=== PATIENT | female | born 1935 | race Caucasian/White ===

== ENCOUNTER 2019-08-11 07:52 | Emergency (ER) | payer OTHER ==
[2019-08-11] MEDS ORDERED: LIDOCAINE 1% W/EPI 1:100,000 MDV 20 ML VIAL ONE (08:53)
[2019-08-11 08:57] LABS: Absolute Lymphocytes (CBC) 1.5 K/uL (0.7-4.9); Basophils % 1.1 % (0-1.3); Hematocrit 33.9 % (36.0-45.0); Lymphocytes % 17.7 % (15.3-44.8); MPV 10.2 fL (7.6-11.3); RBC Red Blood Cell Count 3.38 M/uL (3.86-4.86)
[2019-08-11 08:58] LABS: Protime INR 1.01
[2019-08-11] MEDS ORDERED: TETANUS & DIPHTHERIA TOX,ADULT 0.5 ML VIAL ONE (09:12)
[2019-08-11] MEDS ORDERED: CEFAZOLIN/SWI 1gm 1 GM/10 ML SYR ONE (09:12)
[2019-08-11 09:15] LABS: ALT/SGPT 10 U/L (12-78); AST/SGOT 18 U/L (15-37); Albumin 3.4 g/dL (3.4-5.0); Alkaline Phosphatase 57 U/L (45-117); BUN Blood Urea Nitrogen 13 mg/dL (7-18); Bicarbonate 30 mmol/L (21-32); Bilirubin Direct 0.2 mg/dL (0-0.2); Bilirubin Total 0.6 mg/dL (0.2-1.0); Glucose Level 93 mg/dL (74-106); Magnesium 2.1 mg/dL (1.8-2.4); Potassium 3.8 mmol/L (3.5-5.1); Protein, Total 7.1 g/dL (6.4-8.2); Sodium Level 141 mmol/L (136-145); Troponin (Emerg Dept Use Only) < 0.02 ng/mL (0.0-0.045)
--- NOTE | 2019-08-11 09:46 | RAD REPORT ---
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
--- NOTE | 2019-08-11 10:08 | RAD REPORT ---
EXAM DESCRIPTION: Benita Single View08/11/2019 8:45 am CLINICAL HISTORY: cough COMPARISON: 2017 FINDINGS: The lungs appear clear of acute infiltrate. The heart is normal size IMPRESSION: No acute abnormalities displayed
--- NOTE | 2019-08-11 10:21 | RAD REPORT ---
EXAM DESCRIPTION: CT - Head Brain Wo Cont - 08/11/2019 10:14 am CLINICAL HISTORY: Dizziness COMPARISON: None TECHNIQUE: Computed axial tomography of the head was obtained. IV contrast was not requested. All CT scans are performed using dose optimization technique as appropriate and may include automated exposure control or mA/KV adjustment according to patient size. FINDINGS: An intracranial bleed is not seen . The ventricles are normal in caliber. No extra-axial fluid collection is noted. Mild to moderate low-density areas within periventricular, deep and subcortical white matter likely r epresent ischemic changes secondary to small vessel disease. Fluid within the sinuses/ mastoids is not seen. IMPRESSION: No acute intracranial abnormality is seen. If patient's symptoms persist MRI of the bra in would be recommended.
--- NOTE | 2019-08-11 10:44 | EDPHYS ---
Physician Documentation [facility] Name: Jaida Chance Age: 84 yrs Sex: Female : 1935 Arrival Date: 08/11/2019 Time: 07:52 Bed 7 Private MD: ED Physician Tejas Kinsey HPI: 08/11 08:14 This 84 yrs old Female presents to ER via EMS with complaints of Fall Injury. shena 08:14 Details of fall: The patient fell from an upright position, while standing. Associated shena injuries: The patient sustained left bicep and left tricep, decreased range of motion, swelling. Severity of symptoms: At their worst the symptoms were mild, in the emergency department the symptoms are unchanged. The patient has not experienced similar symptoms in the past. Historical: - Allergies: 08:02 Codeine (Upset stomach); em - Home Meds: 08:02 lorazepam 0.5 mg Oral tab [Active]; escitalopram oxalate 20 mg oral tab [Active]; em raloxifene 60 mg oral tab 1 tab once daily [Active]; ibandronate 150 mg oral tab [Active]; propranolol 20 mg Oral tab [Active]; - PSHx: 08:02 Appendectomy; ; em - Immunization history:: Adult Immunizations up to date. - Coronavirus screen:: The patient has NOT traveled to [place] in the past 14 days. The patient has NOT had contact with known/suspected case of Coronavirus?. - Social history:: Smoking status: Patient denies any tobacco usage or history of. - Family history:: not pertinent. - Ebola Screening: : Patient negative for fever greater than or equal to 101.5 degrees Fahrenheit, and additional compatible Ebola Virus Disease symptoms Patient denies exposure to infectious person Patient denies travel to an Ebola-affected area in the 21 days before illness onset No symptoms or risks identified at this time. ROS: 08:14 Constitutional: Negative for fever, chills, and weight loss, Eyes: Negative for injury, shena pain, redness, and discharge, ENT: Negative for injury, pain, and discharge, Neck: Negative for injury, pain, and swelling, Cardiovascular: Negative for chest pain, palpitations, and edema, Respiratory: Negative for shortness of breath, cough, wheezing, and pleuritic chest pain, Abdomen/GI: Negative for abdominal pain, nausea, vomiting, diarrhea, and constipation, Back: Negative for injury and pain, : Negative for injury, bleeding, discharge, and swelling, Psych: Negative for depression, anxiety, suicide ideation, homicidal ideation, and hallucinations, Allergy/Immunology: Negative for hives, rash, and allergies, Endocrine: Negative for neck swelling, polydipsia, polyuria, polyphagia, and marked weight changes, Hematologic/Lymphatic: Negative for swollen nodes, abnormal bleeding, and unusual bruising. 08:14 MS/extremity: Positive for injury or acute deformity, laceration, pain, of the left bicep. Exam: 08:14 Constitutional: This is a well developed, well nourished patient who is awake, alert, shena and in no acute distress. Head/Face: Normocephalic, atraumatic. Eyes: Pupils equal round and reactive to light, extra-ocular motions intact. Lids and lashes normal. Conjunctiva and sclera are non-icteric and not injected. Cornea within normal limits. Periorbital areas with no swelling, redness, or edema. ENT: Nares patent. No nasal discharge, no septal abnormalities noted. Tympanic membranes are normal and external auditory canals are clear. Oropharynx with no redness, swelling, or masses, exudates, or evidence of obstruction, uvula midline. Mucous membranes moist. Neck: Trachea midline, no thyromegaly or masses palpated, and no cervical lymphadenopathy. Supple, full range of motion without nuchal rigidity, or vertebral point tenderness. No Meningismus. Chest/axilla: Normal chest wall appearance and motion. Nontender with no deformity. No lesions are appreciated. Cardiovascular: Regular rate and rhythm with a normal S1 and S2. No gallops, murmurs, or rubs. Normal PMI, no JVD. No pulse deficits. Respiratory: Lungs have equal breath sounds bilaterally, clear to auscultation and percussion. No rales, rhonchi or wheezes noted. No increased work of breathing, no retractions or nasal flaring. Abdomen/GI: Soft, non-tender, with normal bowel sounds. No distension or tympany. No guarding or rebound. No evidence of tenderness throughout. Back: No spinal tenderness. No costovertebral tenderness. Full range of motion. Neuro: Awake and alert, GCS 15, oriented to person, place, time, and situation. Cranial nerves II-XII grossly intact. Motor strength 5/5 in all extremities. Sensory grossly intact. Cerebellar exam normal. Normal gait. Psych: Awake, alert, with orientation to person, place and time. Behavior, mood, and affect are within normal limits. 08:14 Skin: Appearance: Color: pale. 08:14 Neuro: Orientation: is normal, appropriate for stated age, no acute changes, Mentation: is normal, appropriate for stated age, no acute changes, Memory: is normal, appropriate for stated age, no acute changes, Cranial nerves: grossly normal, is grossly normal based on the patient's age, no acute changes, Cerebellar function: is grossly normal, is grossly normal based on the patient's age, no acute changes, Motor: is normal, is grossly normal based on the patient's age, Sensation: is normal, no obvious gross deficits, appropriate no acute changes, Gait: not tested. Babinski testing is normal, seizure activity, is not displayed by the patient. 08:51 Musculoskeletal/extremity: DVT Exam: No signs of deep vein thrombosis. no pain, no shena swelling, no tenderness, negative Homans' sign noted on exam, no appreciated bluish discoloration, no erythema, no increased warmth. 08:52 Abdomen/GI: Rectal exam: is unremarkable, rectal tone normal, Stool: guaiac negative, shena hemorrhoid(s), are not appreciated, mass, is not appreciated, swelling, is not appreciated, tenderness, is not appreciated. Vital Signs: 08:02 BP 130 / 80; Pulse 56; Resp 16; Temp 98.1; Pulse Ox 100% on R/A; Weight 48.08 kg; Pain em 6/10; 09:00 BP 151 / 75; Pulse 70; Resp 16 S; Pulse Ox 100% on R/A; jl7 10:33 BP 173 / 75 Supine; Pulse 67; jb1 10:33 BP 179 / 70 Sitting; Pulse 63; jb1 10:33 BP 169 / 76 Standing; Pulse 65; jb1 11:00 BP 136 / 54; Pulse 66; Resp 16 S; Pulse Ox 100% on R/A; jl7 MDM: 07:52 Patient medically screened. [facility] 08:17 Data reviewed: vital signs, nurses notes, EMS record, lab test result(s), EKG, [facility] radiologic studies, plain films. 08/11 08:14 Order name: Basic Metabolic Panel 08/11 08:14 Order name: CBC with Diff 08/11 08:14 Order name: LFT's 08/11 08:14 Order name: Magnesium [facility] 08/11 08:14 Order name: PT-INR 08/11 08:14 Order name: Troponin (emerg Dept Use Only) 08/11 08:14 Order name: XRAY Chest (1 view) 08/11 08:14 Order name: Humerus Left XRAY [facility] 08/11 09:00 Order name: CBC with Automated Diff; Complete Time: 09:07 EDMS 08/11 09:18 Order name: Basic Metabolic Panel; Complete Time: 09:26 EDMS 08/11 09:18 Order name: Liver (Hepatic) Function; Complete Time: 09:26 EDMS 08/11 09:18 Order name: Troponin (Emerg Dept Use Only); Complete Time: 09:26 EDMS 08/11 09:18 Order name: Magnesium; Complete Time: 09:26 EDGA 08/11 10:08 Order name: Protime (+INR); Complete Time: 10:39 EDGA 08/11 08:14 Order name: EKG; Complete Time: 08:15 [facility] 08/11 08:14 Order name: Cardiac monitoring; Complete Time: 08:51 [facility] 08/11 08:14 Order name: EKG - Nurse/Tech; Complete Time: 09:04 08/11 08:14 Order name: IV Saline Lock; Complete Time: 08:59 [facility] 08/11 08:14 Order name: Labs collected and sent; Complete Time: 08:59 08/11 08:14 Order name: O2 Per Protocol; Complete Time: 08:51 08/11 08:14 Order name: O2 Sat Monitoring; Complete Time: 08:51 [facility] 08/11 09:49 Order name: RAD; Complete Time: 10:39 EDMS 08/11 09:55 Order name: CT Head Brain wo Cont 08/11 10:28 Order name: RAD; Complete Time: 10:39 EDMS 08/11 10:43 Order name: CT EDGA 08/11 08:14 Order name: Wound Care; Complete Time: 10:07 08/11 08:18 Order name: Prolene, Sutures; Complete Time: 08:58 [facility] 08/11 08:18 Order name: Dressing - Wound; Complete Time: 10:07 [facility] 08/11 08:18 Order name: Gloves, Sterile; Complete Time: 08:58 [facility] 08/11 08:18 Order name: Setup Suture Tray; Complete Time: 08:59 [facility] 08/11 09:55 Order name: Orthostatics; Complete Time: 10:34 [facility] Administered Medications: 09:13 Drug: Tetanus-Diphtheria Toxoid Adult 0.5 ml {Orchestrator: [employer]. Exp: em 05/25/2021. Lot #: [id number]. } Route: IM; Site: right deltoid; 09:49 Follow up: Response: No adverse reaction jl7 09:17 Drug: Ancef 1 grams Route: IVPB; Site: right forearm; 09:22 Follow up: Response: No adverse reaction; IV Status: Completed infusion [facility] 09:20 Drug: Lidocaine-Epinephrine -1%: (1:100,000) 10 ml {Note: adminstered by Dr. Kinsey.} 7 Volume: 20 ml; Route: Infiltration; 09:48 Follow up: Response: No adverse reaction [facility] 11:08 Not Given (Patient Refused): Zofran 4 mg IVP once; over 2 minutes jl7 Disposition: 08/11/19 10:43 Discharged to Home. Impression: Fall due to bumping against object, Dizziness and giddiness, Laceration without foreign body of left upper arm, Osteochondropathy, unspecified of upper arm. - Condition is Stable. - Discharge Instructions: Dizziness, Laceration Care, Adult, Near-Syncope, Laceration Care, Adult, [id number], Fall Prevention in the Home, [id number]. - Prescriptions for Keflex 500 mg Oral Capsule - take 1 capsule by ORAL route every 6 hours for 7 days; 28 capsule. - Medication Reconciliation Form, Thank You Letter, Antibiotic Education, Prescription Opioid Use form. - Follow up: Private Physician; When: 2 - 3 days; Reason: Recheck today's complaints, Continuance of care, Re-evaluation by your physician. Follow up: Boston Najera MD; When: 2 - 3 days; Reason: Recheck today's complaints, Re-evaluation by your physician. - Problem is new. - Symptoms have improved. Signatures: Dispatcher [employer] Tejas Garcia MD MD cha Munoz, Edgar, RN RN Shad Huerta RN RN jl7 Corrections: (The following items were deleted from the chart) 11:28 10:43 08/11/2019 10:43 Discharged to Home. Impression: Fall due to bumping against jl7 object; Dizziness and giddiness; Laceration without foreign body of left upper arm; Osteochondropathy, unspecified of upper arm. Condition is Stable. Discharge Instructions: Dizziness, Laceration Care, Adult, Near-Syncope, Laceration Care, Adult, [id number], Fall Prevention in the Home, [id number]. Prescriptions for Keflex 500 mg Oral Capsule - take 1 capsule by ORAL route every 6 hours for 7 days; 28 capsule. and Forms are Medication Reconciliation Form, Thank You Letter, Antibiotic Education, Prescription Opioid Use. Follow up: Private Physician; When: 2 - 3 days; Reason: Recheck today's complaints, Continuance of care, Re-evaluation by your physician. Follow up: Dr. Boston Najera; When: 2 - 3 days; Reason: Recheck today's complaints, Re-evaluation by your physician. Problem is new. Symptoms have improved. shena
--- NOTE | 2019-08-11 10:44 | ER ---
Nurse's Notes [facility] Name: Jaida Chance Age: 84 yrs Sex: Female : 1935 Arrival Date: 08/11/2019 Time: 07:52 Bed 7 Private MD: Diagnosis: Fall due to bumping against object;Dizziness and giddiness;Laceration without foreign body of left upper arm;Osteochondropathy, unspecified of upper arm Presentation: 08/11 07:55 Presenting complaint: EMS states: was getting back into bed and became dizzy, reports em getting skin tear on left upper arm, bandaged with Kerlix CORN POPPER, denies hitting head, BGL 124, VSS. Transition of care: patient was not received from another setting of care. Onset of symptoms was August 11, 2019. Risk Assessment: Do you want to hurt yourself or someone else? Patient reports no desire to harm self or others. Initial Sepsis Screen: Does the patient meet any 2 criteria? No. Patient's initial sepsis screen is negative. Does the patient have a suspected source of infection? Yes: Skin breakdown/wound. Care prior to arrival: None. 07:55 Method Of Arrival: [facility] em 07:55 Acuity: EILEEN 3 em Historical: - Allergies: 08:02 Codeine (Upset stomach); em - Home Meds: 08:02 lorazepam 0.5 mg Oral tab [Active]; escitalopram oxalate 20 mg oral tab [Active]; em raloxifene 60 mg oral tab 1 tab once daily [Active]; ibandronate 150 mg oral tab [Active]; propranolol 20 mg Oral tab [Active]; - PSHx: 08:02 Appendectomy; ; em - Immunization history:: Adult Immunizations up to date. - Coronavirus screen:: The patient has NOT traveled to [place] in the past 14 days. The patient has NOT had contact with known/suspected case of Coronavirus?. - Social history:: Smoking status: Patient denies any tobacco usage or history of. - Family history:: not pertinent. - Ebola Screening: : Patient negative for fever greater than or equal to 101.5 degrees Fahrenheit, and additional compatible Ebola Virus Disease symptoms Patient denies exposure to infectious person Patient denies travel to an Ebola-affected area in the 21 days before illness onset No symptoms or risks identified at this time. Screenin:55 Abuse screen: Denies threats or abuse. Nutritional screening: No deficits noted. em Tuberculosis screening: No symptoms or risk factors identified. Fall Risk None identified. Assessment: 09:22 General: Appears in no apparent distress. comfortable, Behavior is calm, cooperative, em appropriate for age. Pain: Complains of pain in left bicep Pain does not radiate. Pain currently is 6 out of 10 on a pain scale. Quality of pain is described as burning. Neuro: Level of Consciousness is awake, alert, obeys commands, Oriented to person, place, time, situation, Appropriate for age Denies weakness dizziness. Cardiovascular: Capillary refill < 3 seconds Patient's skin is warm and dry. Respiratory: Airway is patent Respiratory effort is even, unlabored, Respiratory pattern is regular, symmetrical. Derm: Skin is intact, is thin, Skin is pink, warm \T\ dry. Wound noted left arm. Musculoskeletal: Capillary refill < 3 seconds, Range of motion: intact in all extremities. 10:30 Reassessment: Patient appears in no apparent distress at this time. No changes from jl7 previously documented assessment. Patient and/or family updated on plan of care and expected duration. Pain level reassessed. Patient is alert, oriented x 3, equal unlabored respirations, skin warm/dry/pink. Vital Signs: 08:02 BP 130 / 80; Pulse 56; Resp 16; Temp 98.1; Pulse Ox 100% on R/A; Weight 48.08 kg; Pain em 610; 09:00 BP 151 / 75; Pulse 70; Resp 16 S; Pulse Ox 100% on R/A; jl7 10:33 BP 173 / 75 Supine; Pulse 67; jb1 10:33 BP 179 / 70 Sitting; Pulse 63; jb1 10:33 BP 169 / 76 Standing; Pulse 65; jb1 11:00 BP 136 / 54; Pulse 66; Resp 16 S; Pulse Ox 100% on R/A; jl7 ED Course: 07:52 Patient arrived in ED. sg 07:52 Tejas Kinsey MD is Attending Physician. shena 07:55 Rodger Chin, RN is Primary Nurse. em 07:55 Patient has correct armband on for positive identification. Bed in low position. Call em light in reach. Adult w/ patient. Pulse ox on. NIBP on. 07:58 Triage completed. em 08:02 Arm band placed on. em 08:10 ED physician to see patient. sg 09:00 engagement quality consultant on. jl7 09:00 Initial lab(s) drawn, by me, sent to lab. Inserted saline lock: 22 gauge in right jl7 forearm, using aseptic technique. Blood collected. 09:02 EKG done, by ED staff, reviewed by Tejas Kinsey MD. em 10:13 CT completed. Patient tolerated procedure well. Patient moved back from CT. mw3 10:43 Boston Najera MD is Referral Physician. [facility] 11:10 Assist provider with laceration repair on left tricep and left bicep that was between jl7 7.6 to 12.5 cm using sutures. Set up tray. Performed by Tejas Kinsey MD Dressed with non-stick gauze, Neosporin and Tegaderm Patient tolerated well. IV discontinued, intact, bleeding controlled, No redness/swelling at site. Pressure dressing applied. Administered Medications: 09:13 Drug: Tetanus-Diphtheria Toxoid Adult 0.5 ml {Baseball Hand Sewer: [employer] Exp: em 05/25/2021. Lot #: [id number]. } Route: IM; Site: right deltoid; 09:49 Follow up: Response: No adverse reaction jl7 09:17 Drug: Ancef 1 grams Route: IVPB; Site: right forearm; em 09:22 Follow up: Response: No adverse reaction; IV Status: Completed infusion jl7 09:20 Drug: Lidocaine-Epinephrine -1%: (1:100,000) 10 ml {Note: adminstered by Dr. Kinsey.} 7 Volume: 20 ml; Route: Infiltration; 09:48 Follow up: Response: No adverse reaction jl7 11:08 Not Given (Patient Refused): Zofran 4 mg IVP once; over 2 minutes jl7 Outcome: 10:43 Discharge ordered by . [facility] 11:10 Discharged to home via wheelchair, with family. jl7 11:10 Condition: stable 11:10 Discharge instructions given to patient, family, Instructed on discharge instructions, follow up and referral plans. medication usage, Demonstrated understanding of instructions, follow-up care, medications, Prescriptions given X 1. 11:20 Patient left the ED. jl7 Signatures: Colby Winter1 Cornell, NeftaliLUCERO landrum RN, Corey, MD MD cha Munoz, Edgar RN Shad Wilkes RN RN jl7 Shonna Wang 3 Corrections: (The following items were deleted from the chart) 11:29 11:28 Patient left the ED. shravan cheney
[2019-08-11 11:37] VITALS: TEMP 98.1; O2SAT 100
[2019-08-11 11:41] VITALS: BP 136/54
--- NOTE | 2019-08-12 06:23 | EKG ---
Test Date: 2019-08-11 Test Time: 09:02:38 Admin Assistant: DUSTY MEASUREMENT RESULTS: Intervals: Rate: 61 PA: 140 QRSD: 74 QT: 456 QTc: 459 [place]: P: 66 PA: 140 QRS: 37 T: 58 INTERPRETIVE STATEMENTS: Normal sinus rhythm Normal ECG Compared to ECG 10/12/2016 18:52:44 No significant changes Electronically Signed On 08-12-19 06:23:25 ACTUARIAL SCIENCE PROFESSOR by Maynor Julian
== END 2019-08-11 11:28 | disposition home or self-care (01) ==
LOC: ER 07:52
PROC: 0JQF0ZZ Repair Left Upper Arm Subcutaneous Tissue and Fascia, Open Approach (ICD-10-PCS; principal; 2019-08-11)
DX: S41.112A Laceration without foreign body of left upper arm, initial encounter (principal); M93.922 Osteochondropathy, unspecified, left upper arm; R42 Dizziness and giddiness; W18.30XA Fall on same level, unspecified, initial encounter; Y93.89 Activity, other specified; Y92.013 Bedroom of single-family (private) house as the place of occurrence of the external cause; Z23 Encounter for immunization
CPT/HCPCS: 93005; 85025; 80048; 36415; 83735; 85610; 80076; 84484; 70450; 71045; 73060; 90471; 90714; 96374; 99285; 12004; J0690

== ENCOUNTER 2019-10-27 13:35 | Emergency (ER) | payer OTHER ==
[2019-10-27] MEDS ORDERED: dexAMETHasone 10 MG/ML VIAL ONE (14:02)
[2019-10-27] MEDS ORDERED: MEPERIDINE HCL 25 MG/0.5 ML ONE ×2 (14:02→15:00)
--- NOTE | 2019-10-27 14:50 | RAD REPORT ---
EXAM DESCRIPTION: CT - C Spine Wo Con - 10/27/2019 2:24 pm CLINICAL HISTORY: Neck pain/radiculopathy COMPARISON: None. TECHNIQUE: Computed axial tomography of the cervical spine were obtained with sagittal and coronal r econstruction images generated and reviewed. All CT scans are performed using dose optimization technique as appropriate and may include automated exposure control or mA/KV adjustment according to patient size. FINDINGS: A cervical fracture is not seen. 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 Vertebral endplates of C6 and C7 are sclerotic with disc thinning. 6 millimeter well-circumscribed lucency is present within the vertebral body C5. IMPRESSION: A cervical fracture is not seen. Spondylosis resulting C5-6 resulting in moderate left foraminal stenosis Vertebral endplates of C6 and C7 are sclerotic with disc space narrowing. Most likely this is degener ative in nature. An inflammatory/infectious process can also result in this appearance should be oscar elated clinically and with appropriate lab values 6 millimeter well-circumscribed loosely within at the vertebral body C5 is nonspecific. A followup CT or MRI in 3 months could be obtained to assess stability If the patient continues have symptoms to suggest spinal cord/spinal canal pathology then MRI would b e recommended.
--- NOTE | 2019-10-27 15:35 | EDPHYS ---
Physician Documentation [facility] Name: Jaida Chance Age: 84 yrs Sex: Female : 1935 Arrival Date: 10/27/2019 Time: 13:39 Bed 17 Private MD: ED Physician Jose Raul Medellin HPI: 10/26 13:57 This 84 yrs old Female presents to ER via Unassigned with complaints of Neck rn Pain, >24Hrs Old. 13:57 The patient or guardian complains of pain. The symptoms are located on the right neck rn pain. Onset: The symptoms/episode began/occurred 1 week(s) ago. Context: The problem was sustained at an unknown location, The neck injury/problem resulted from from unknown cause. Associated signs and symptoms: The patient has no apparent associated signs or symptoms, Pertinent negatives: fever, headache, bladder incontinence, bowel incontinence, nausea, numbness, tingling, vomiting, weakness. The pain does not radiate. Modifying factors: The symptoms are alleviated by remaining still, the symptoms are aggravated by movement, pressure. Severity of symptoms: At their worst the symptoms were moderate, in the emergency department the symptoms are unchanged. The patient has not experienced similar symptoms in the past. Reports 1 week of right neck pain, worse with movement, improves when holding still. No fever or trauma. No focal neurological complaints. Denies dizziness/vision changes/speech problems. Historical: - Allergies: 14:00 Codeine (Upset stomach); ca1 - PMHx: 14:00 Anxiety; Hypertension; ca1 - PSHx: 14:00 Appendectomy; ; ca1 - Immunization history:: Adult Immunizations up to date. - Social history:: Smoking status: Patient denies any tobacco usage or history of. - Family history:: not pertinent. - Hospitalizations: : No recent hospitalization is reported. ROS: 13:57 Constitutional: Negative for fever, chills, and weight loss, Eyes: Negative for injury, rn pain, redness, and discharge, Neck: Negative for injury, and swelling, Cardiovascular: Negative for chest pain, palpitations, and edema, Respiratory: Negative for shortness of breath, cough, wheezing, and pleuritic chest pain, Abdomen/GI: Negative for abdominal pain, nausea, vomiting, diarrhea, and constipation, MS/Extremity: Negative for injury and deformity, Skin: Negative for injury, rash, and discoloration, Neuro: Negative for headache, weakness, numbness, tingling, and seizure. Exam: 13:57 Constitutional: This is a well developed, well nourished patient who is awake, alert, rn holding right neck/base of skull Head/Face: Normocephalic, atraumatic. Neck: Trachea midline, no masses, no LAD, no midline tenderness, + tenderness along right SCM at base of skull. Cardiovascular: Regular rate and rhythm. No pulse deficits. Respiratory: No increased work of breathing, no retractions or nasal flaring. Skin: Warm, dry MS/ Extremity: Pulses equal, no cyanosis. Neurovascular intact. Neuro: Awake and alert, GCS 15, oriented to person, place, time, and situation. Cranial nerves II-XII grossly intact. Motor strength 5/5 in all extremities. Sensory grossly intact. Cerebellar exam normal. Normal gait. Vital Signs: 13:55 BP 148 / 71; Pulse 63; Resp 18; Temp 97.8(TE); Pulse Ox 100% on R/A; Weight 48.08 kg ca1 (R); Height 5 ft. 0 in. (152.40 cm) (R); 15:42 BP 132 / 80; Pulse 62; Resp 14; Temp 98.0; Pulse Ox 100% on R/A; Pain 3/10; ls4 13:55 Body Mass Index 20.70 (48.08 kg, 152.40 cm) ca1 MDM: 13:43 Patient medically screened. rn 15:33 Differential diagnosis: arthritis, Cervical Disc Herniation Cervical Discogenic Pain rn Cervical Facet Syndrome Cervical Raiculopathy Cervical Spondylosis cervical strain, Spondylosis subluxation, torticollis. Data reviewed: vital signs, nurses notes, radiologic studies, CT scan, and as a result, I will discharge patient. Counseling: I had a detailed discussion with the patient and/or guardian regarding: the historical points, exam findings, and any diagnostic results supporting the discharge/admit diagnosis, radiology results, the need for outpatient follow up, to return to the emergency department if symptoms worsen or persist or if there are any questions or concerns that arise at home. Response to treatment: the patient's symptoms have mildly improved after treatment, and as a result, I will discharge patient. Special discussion: I discussed with the patient/guardian in detail that at this point there is no indication for admission to the hospital. It is understood, however, that if the symptoms persist or worsen the patient needs to return immediately for re-evaluation. Further emergent ED testing is not indicated at this point in time. I discussed with the patient/guardian in detail the need to arrange with the PCP or specialist further outpatient testing, MRI, Based on the history and exam findings, there is no indication for further emergent testing or inpatient evaluation. I discussed with the patient/guardian the need to see the primary care provider for further evaluation of the symptoms. 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 10/26 13:52 Order name: CT C Spine; Complete Time: 15:07 rn 10/26 13:52 Order name: IV Start; Complete Time: 14:07 rn Administered Medications: 14:05 Drug: Demerol - Meperidine 12.5 mg Route: IVP; Site: right forearm; ls4 14:05 Drug: Decadron - Dexamethasone 10 mg Route: IVP; Site: right forearm; ls4 Disposition: 10/27/19 15:34 Discharged to Home. Impression: Torticollis, Radiculopathy, cervical region, Cervical disc disorder, unspecified. - Condition is Stable. - Discharge Instructions: Cervical Radiculopathy, Herniated Disk, Acute Torticollis, Adult, Degenerative Disk Disease. - Prescriptions for Cyclobenzaprine 10 mg Oral Tablet - take 1 tablet by ORAL route every 8-12 hours As needed; 15 tablet. Medrol (Terell) 4 mg Oral Tablets, Dose Pack - take 1 tablet by ORAL route as directed - follow package instructions; 1 packet. - Medication Reconciliation Form, Thank You Letter, Antibiotic Education, Prescription Opioid Use form. - Follow up: Private Physician; When: As needed; Reason: Recheck today's complaints, Re-evaluation by your physician. - Problem is new. - Symptoms have improved. Signatures: Dispatcher [employer] EDMS Jose Raul Medellin MD MD rn Stewart, Lisa, RN RN ls4 Jazz Thornton RN RN ca1 Corrections: (The following items were deleted from the chart) 16:43 15:34 10/27/2019 15:34 Discharged to Home. Impression: Torticollis; Radiculopathy, ls4 cervical region; Cervical disc disorder, unspecified. Condition is Stable. Forms are Medication Reconciliation Form, Thank You Letter, Antibiotic Education, Prescription Opioid Use. Follow up: Private Physician; When: As needed; Reason: Recheck today's complaints, Re-evaluation by your physician. Problem is new. Symptoms have improved. rn
--- NOTE | 2019-10-27 15:35 | ER ---
Nurse's Notes [facility] Name: Jaida Chance Age: 84 yrs Sex: Female : 1935 Arrival Date: 10/27/2019 Time: 13:39 Bed 17 Private MD: Diagnosis: Torticollis;Radiculopathy, cervical region;Cervical disc disorder, unspecified Presentation: 10/26 13:55 Chief complaint: Patient states: Neck pain for the past few days, worst today. Pt ca1 crying during triage, holding base of head and neck. Denies N/V/Dizziness. Coronavirus screen: Proceed with normal triage. Patient denies a cough. Patient denies shortness of breath or difficulty breathing. Patient denies measured and/or subjective temperature greater than 100.4F prior to today's visit. Patient denies travel on a cruise ship or to a country the [facility] currently lists as an affected area. Patient denies contact with known and/or suspected case of COVID-19. Ebola Screen: Patient negative for fever greater than or equal to 101.5 degrees Fahrenheit, and additional compatible Ebola Virus Disease symptoms Patient denies exposure to infectious person. Patient denies travel to an Ebola-affected area in the 21 days before illness onset. No symptoms or risks identified at this time. Acute neurological deficit: none identified. Initial Sepsis Screen: Does the patient meet any 2 criteria? No. Patient's initial sepsis screen is negative. Does the patient have a suspected source of infection? No. Patient's initial sepsis screen is negative. Risk Assessment: Do you want to hurt yourself or someone else? Patient reports no desire to harm self or others. Onset of symptoms was October 27, 2019. 13:55 Acuity: EILEEN 3 ca1 13:55 Method Of Arrival: Wheelchair ca1 Triage Assessment: 14:13 General: Appears uncomfortable, Behavior is calm, cooperative. Pain: Complains of pain ls4 in base of the skull and neck Pain currently is 8 out of 10 on a pain scale. Historical: - Allergies: 14:00 Codeine (Upset stomach); ca1 - PMHx: 14:00 Anxiety; Hypertension; ca1 - PSHx: 14:00 Appendectomy; ; ca1 - Immunization history:: Adult Immunizations up to date. - Social history:: Smoking status: Patient denies any tobacco usage or history of. - Family history:: not pertinent. - Hospitalizations: : No recent hospitalization is reported. Screenin:12 Abuse screen: Denies threats or abuse. Denies injuries from another. Nutritional ls4 screening: No deficits noted. Tuberculosis screening: No symptoms or risk factors identified. Fall Risk None identified. Assessment: 14:15 Neuro: Level of Consciousness is awake, alert, obeys commands, Oriented to person, ls4 place, time, situation. Respiratory: No deficits noted. Airway is patent Respiratory effort is even, unlabored, Respiratory pattern is regular. Musculoskeletal: Circulation, motion, and sensation intact. Capillary refill < 3 seconds, Range of motion: intact in all extremities. 14:48 Reassessment: Patient appears in no apparent distress at this time. Patient and/or ls4 family updated on plan of care and expected duration. Pain level reassessed. Patient is alert, oriented x 3, equal unlabored respirations, skin warm/dry/pink. PT PAIN IMPROVED AFTER 2ND DOSE OF DEMEROL. General: Appears in no apparent distress. Pain: Pain: Pain currently is 5 out of 10 on a pain scale. Vital Signs: 13:55 BP 148 / 71; Pulse 63; Resp 18; Temp 97.8(TE); Pulse Ox 100% on R/A; Weight 48.08 kg ca1 (R); Height 5 ft. 0 in. (152.40 cm) (R); 15:42 BP 132 / 80; Pulse 62; Resp 14; Temp 98.0; Pulse Ox 100% on R/A; Pain 3/10; ls4 13:55 Body Mass Index 20.70 (48.08 kg, 152.40 cm) ca1 ED Course: 13:39 Patient arrived in ED. as 13:43 Jose Raul Medellin MD is Attending Physician. rn 13:58 Triage completed. ca1 14:00 Arm band placed on right wrist. ca1 14:00 No provider procedures requiring assistance completed. Inserted saline lock: 20 gauge ca1 in right forearm, using aseptic technique. 14:12 Patient has correct armband on for positive identification. Bed in low position. Call ls4 light in reach. Side rails up X 1. Pulse ox on. NIBP on. Warm blanket given. Verbal reassurance given. 14:24 CT C Spine In Process Unspecified. EDMS 14:27 CT completed. Patient tolerated procedure well. Patient moved back from CT. mw3 14:48 Erinn Campoverde, RN is Primary Nurse. ls4 Administered Medications: 14:05 Drug: Demerol - Meperidine 12.5 mg Route: IVP; Site: right forearm; ls4 14:05 Drug: Decadron - Dexamethasone 10 mg Route: IVP; Site: right forearm; ls4 Outcome: 15:22 Discharged to home ambulatory. ls4 15:22 Condition: stable 15:22 Discharge instructions given to patient, Instructed on discharge instructions, follow up and referral plans. medication usage, safety practices, Demonstrated understanding of instructions, follow-up care, medications, Prescriptions given X 2. 15:34 Discharge ordered by . rn 16:43 Patient left the ED. ls4 Signatures: Dispatcher [employer] Sanjana Sofia Roman, MD MD rn Willis, Michelle mw3 Erinn Campoverde, RN RN ls4 Jazz Thornton RN RN ca1 Corrections: (The following items were deleted from the chart) 14:01 13:55 BP 148 / 71; Temp 97.8F Temporal; 48.08 kg Reported; Height 5 ft. 0 in. Reported; ca1 BMI: 20.7; ca1
[2019-10-27 16:49] VITALS: O2SAT 100
[2019-10-27 16:54] VITALS: BP 132/80; TEMP 98
== END 2019-10-27 16:43 | disposition home or self-care (01) ==
LOC: ER 13:35
DX: M43.6 Torticollis (principal); M54.12 Radiculopathy, cervical region; M50.90 Cervical disc disorder, unspecified, unspecified cervical region; I10 Essential (primary) hypertension; Z88.5 Allergy status to narcotic agent
CPT/HCPCS: 72125; 96375; 96374; 99284; J1100; J2175 ×2

== ENCOUNTER 2019-12-01 05:15 | Emergency (ER) | payer OTHER ==
[2019-12-01] MEDS ORDERED: FAMOTIDINE 20 MG TAB ONE (06:42)
[2019-12-01] MEDS ORDERED: dexAMETHasone 10 MG/ML VIAL ONE (06:42)
[2019-12-01] MEDS ORDERED: DIPHENHYDRAMINE 25 MG TAB/CAP ONE (06:42)
--- NOTE | 2019-12-01 07:35 | ER ---
Nurse's Notes [facility] Name: Jaida Chance Age: 84 yrs Sex: Female : 1935 Arrival Date: 12/01/2019 Time: 05:18 Bed 11 Private MD: Diagnosis: Rash and other nonspecific skin eruption Presentation: 11/30 05:48 Chief complaint: Patient states: Itching to hands and arms that began yesterday, worse lp1 this morning; Patient states "It feels like mosquitoes all over me"; redness noted to arms and hands. Coronavirus screen: Proceed with normal triage. Ebola Screen: No symptoms or risks identified at this time. Initial Sepsis Screen: Does the patient meet any 2 criteria? No. Patient's initial sepsis screen is negative. Does the patient have a suspected source of infection? No. Patient's initial sepsis screen is negative. Risk Assessment: Do you want to hurt yourself or someone else? Patient reports no desire to harm self or others. Onset of symptoms was November 30, 2019. 05:48 Method Of Arrival: Ambulatory lp1 05:48 Acuity: EILEEN 4 lp1 Historical: - Allergies: 05:52 Codeine (Upset stomach); lp1 - Home Meds: 05:52 Boniva Oral [Active]; cholestyramine (with sugar) Oral [Active]; escitalopram oxalate lp1 20 mg Oral tab [Active]; Evista Oral [Active]; ibandronate 150 mg Oral tab [Active]; ibandronate Oral [Active]; Lexapro Oral [Active]; lorazepam 0.5 mg Oral tab [Active]; Lorazepam Oral [Active]; propranolol 20 mg Oral tab [Active]; Propranolol Oral [Active]; raloxifene 60 mg Oral tab [Active]; raloxifene 60 mg Oral tab 1 tab once daily [Active]; - PMHx: 05:52 Anxiety; Hypertension; lp1 - PSHx: 05:52 None; lp1 - Immunization history:: Adult Immunizations up to date. - Social history:: Smoking status: Patient denies any tobacco usage or history of. Screenin:52 Abuse screen: Denies threats or abuse. Denies injuries from another. Nutritional lp1 screening: No deficits noted. Tuberculosis screening: No symptoms or risk factors identified. Fall Risk None identified. Assessment: 06:43 General: Appears uncomfortable, Behavior is anxious. Pain: Complains of pain in right lp1 arm and left arm. Neuro: No deficits noted. Cardiovascular: No deficits noted. Respiratory: No deficits noted. GI: No signs and/or symptoms were reported involving the gastrointestinal system. : No signs and/or symptoms were reported regarding the genitourinary system. EENT: No signs and/or symptoms were reported regarding the EENT system. Derm: Rash noted that is red, urticaria, Reports itching. Musculoskeletal: No deficits noted. Vital Signs: 05:48 BP 139 / 75; Pulse 69; Resp 18; Temp 97.4(TE); Pulse Ox 99% on R/A; Weight 47.63 kg lp1 (R); Height 5 ft. 0 in. (152.40 cm); 05:48 Body Mass Index 20.51 (47.63 kg, 152.40 cm) lp1 ED Course: 05:18 Patient arrived in ED. ag3 05:50 Triage completed. lp1 05:52 Arm band placed on. lp1 06:03 Faustino Hernandez NP is PHCP. pm1 06:03 Gómez Pizano MD is Attending Physician. pm1 06:10 Eliza Pendleton, LUCERO is Primary Nurse. lp1 06:44 Patient has correct armband on for positive identification. lp1 06:44 No provider procedures requiring assistance completed. Patient did not have IV access lp1 during this emergency room visit. Administered Medications: 06:35 Drug: Benadryl 25 mg Route: PO; lp1 07:47 Follow up: Response: No adverse reaction; Marked relief of symptoms ss 06:35 Drug: Decadron 10 mg Route: IM; Site: right gluteus; lp1 07:48 Follow up: Response: No adverse reaction; Marked relief of symptoms ss 06:35 Drug: Pepcid 20 mg Route: PO; lp1 07:48 Follow up: Response: No adverse reaction; Marked relief of symptoms ss Outcome: 07:34 Discharge ordered by . pm1 07:46 Discharged to home ambulatory. ss 07:46 Condition: good 07:46 Discharge instructions given to patient, Instructed on discharge instructions, follow up and referral plans. medication usage, Demonstrated understanding of instructions, follow-up care, medications. 07:47 Patient left the ED. ss Signatures: Cherelle Barrera, RN RN ss Eliza Pendleton, RN RN lp1 Faustino Hernandez, HOUSEKEEPING ROOM INSPECTOR HOUSEKEEPING ROOM INSPECTOR pm1 Melanie Stokes ag3
--- NOTE | 2019-12-01 07:35 | EDPHYS ---
Physician Documentation [facility] Name: Jaida Chance Age: 84 yrs Sex: Female : 1935 Arrival Date: 12/01/2019 Time: 05:18 Bed 11 Private MD: ED Physician Gómez Pizano HPI: 11/30 06:25 This 84 yrs old Female presents to ER via Ambulatory with complaints of HANDS pm1 ITCH. 06:25 The patient's rash thought to be caused by an unknown cause, possibly insect bite. The pm1 rash is located on the dorsal aspect of right hand and left hand and dorsal aspect of right forearm and left forearm. The rash can be described as urticarial. Onset: The symptoms/episode began/occurred yesterday. Associated signs and symptoms: Pertinent positives: itching, Pertinent negatives: difficulty breathing, fever, Pain swelling of lips, swelling of throat, swelling of tongue. Severity of symptoms: in the emergency department the symptoms are worse. Treatment given at home: Took a shower at onset of rash and itching to see if it would provide relief. The patient has experienced similar episodes in the past, today's symptoms are similar, to previous to prior mosquito bites but itching has continued. Historical: - Allergies: 05:52 Codeine (Upset stomach); lp1 - Home Meds: 05:52 Boniva Oral [Active]; cholestyramine (with sugar) Oral [Active]; escitalopram oxalate lp1 20 mg Oral tab [Active]; Evista Oral [Active]; ibandronate 150 mg Oral tab [Active]; ibandronate Oral [Active]; Lexapro Oral [Active]; lorazepam 0.5 mg Oral tab [Active]; Lorazepam Oral [Active]; propranolol 20 mg Oral tab [Active]; Propranolol Oral [Active]; raloxifene 60 mg Oral tab [Active]; raloxifene 60 mg Oral tab 1 tab once daily [Active]; - PMHx: 05:52 Anxiety; Hypertension; lp1 - PSHx: 05:52 None; lp1 - Immunization history:: Adult Immunizations up to date. - Social history:: Smoking status: Patient denies any tobacco usage or history of. ROS: 06:25 Constitutional: Negative for fever, chills, and weight loss, Eyes: Negative for injury, pm1 pain, redness, and discharge, ENT: Negative for injury, pain, and discharge, Neck: Negative for injury, pain, and swelling, Cardiovascular: Negative for chest pain, palpitations, and edema, Respiratory: Negative for shortness of breath, cough, wheezing, and pleuritic chest pain, Abdomen/GI: Negative for abdominal pain, nausea, vomiting, diarrhea, and constipation, MS/Extremity: Negative for injury and deformity. 06:25 Neuro: Negative for headache, weakness, numbness, tingling, and seizure. 06:25 Skin: Positive for rash, of the dorsum of right hand, dorsum of left hand, dorsal aspect of right forearm and dorsal aspect of left forearm, 1 week old abrasion to right aparicio, Negative for abscesses, cellulitis. Exam: 06:25 Constitutional: This is a well developed, well nourished patient who is awake, alert, pm1 and in no acute distress. Head/Face: Normocephalic, atraumatic. Eyes: Pupils equal round and reactive to light, extra-ocular motions intact. Lids and lashes normal. Conjunctiva and sclera are non-icteric and not injected. Cornea within normal limits. Periorbital areas with no swelling, redness, or edema. ENT: Nares patent. No nasal discharge, no septal abnormalities noted. Tympanic membranes are normal and external auditory canals are clear. Oropharynx with no redness, swelling, or masses, exudates, or evidence of obstruction, uvula midline. Mucous membranes moist. Neck: Trachea midline, no thyromegaly or masses palpated, and no cervical lymphadenopathy. Supple, full range of motion without nuchal rigidity, or vertebral point tenderness. No Meningismus. 06:25 Cardiovascular: Exam negative for acute changes, Rate: normal, Rhythm: regular, Pulses: no pulse deficits are appreciated. 06:25 Respiratory: Exam negative for acute changes, respiratory distress, shortness of breath. 06:25 Musculoskeletal/extremity: Exam is negative for acute changes, ROM: no acute changes, intact in all extremities, Circulation is intact in all extremities. Pulses: are normal with no appreciated deficits. 06:25 Skin: Appearance: normal except for affected area, consistent with urticaria, on the dorsum of left hand and dorsal aspect of right forearm and dorsal aspect of left forearm and dorsum of right hand. 06:25 Neuro: Exam negative for acute changes, Orientation: is normal, Motor: is normal, moves all fours, Sensation: is normal, no obvious gross deficits. Vital Signs: 05:48 BP 139 / 75; Pulse 69; Resp 18; Temp 97.4(TE); Pulse Ox 99% on R/A; Weight 47.63 kg lp1 (R); Height 5 ft. 0 in. (152.40 cm); 05:48 Body Mass Index 20.51 (47.63 kg, 152.40 cm) lp1 MDM: 06:19 Patient medically screened. pm1 06:44 Data reviewed: vital signs. Data interpreted: Pulse oximetry: on room air is 99 %. pm1 Interpretation: normal. 06:56 Counseling: I had a detailed discussion with the patient and/or guardian regarding: the pm1 historical points, exam findings, and any diagnostic results supporting the discharge/admit diagnosis, the need for outpatient follow up, to return to the emergency department if symptoms worsen or persist or if there are any questions or concerns that arise at home. Administered Medications: 06:35 Drug: Benadryl 25 mg Route: PO; lp1 07:47 Follow up: Response: No adverse reaction; Marked relief of symptoms ss 06:35 Drug: Decadron 10 mg Route: IM; Site: right gluteus; lp1 07:48 Follow up: Response: No adverse reaction; Marked relief of symptoms ss 06:35 Drug: Pepcid 20 mg Route: PO; lp1 07:48 Follow up: Response: No adverse reaction; Marked relief of symptoms ss Disposition: 12/01/19 07:34 Discharged to Home. Impression: Rash and other nonspecific skin eruption. - Condition is Stable. - Discharge Instructions: Rash. - Prescriptions for Pepcid 20 mg Oral Tablet - take 1 tablet by ORAL route every 12 hours for 10 days; 20 tablet. Medrol (Terell) 4 mg Oral Tablets, Dose Pack - take 1 tablet by ORAL route as directed - follow package instructions; 1 packet. Benadryl 25 mg Oral Capsule - take 1 capsule by ORAL route every 6 hours As needed; 30 tablet. - Medication Reconciliation Form, Thank You Letter, Antibiotic Education, Prescription Opioid Use form. - Follow up: Emergency Department; When: As needed; Reason: Worsening of condition. Follow up: Private Physician; When: 2 - 3 days; Reason: Recheck today's complaints, Continuance of care, Re-evaluation by your physician. - Problem is new. - Symptoms have improved. Addendum: 12/17/2019 16:21 Co-signature as Attending Physician, Gene Rouse MD I agree with the assessment and k dr plan of care. Signatures: Gene Rouse MD MD [facility] Cherelle Barrera RN RN ss Eliza Pendleton RN RN lp1 Faustino Hernandez NP CONFIGURATION MANAGEMENT CONSULTANT pm1 Corrections: (The following items were deleted from the chart) 11/30 07:47 07:34 12/01/2019 07:34 Discharged to Home. Impression: Rash and other nonspecific skin ss eruption. Condition is Stable. Discharge Instructions: Rash. Prescriptions for Pepcid 20 mg Oral Tablet - take 1 tablet by ORAL route every 12 hours for 10 days; 20 tablet, Medrol (Terell) 4 mg Oral Tablets, Dose Pack - take 1 tablet by ORAL route as directed - follow package instructions; 1 packet. and Forms are Medication Reconciliation Form, Thank You Letter, Antibiotic Education, Prescription Opioid Use. Follow up: Emergency Department; When: As needed; Reason: Worsening of condition. Follow up: Private Physician; When: 2 - 3 days; Reason: Recheck today's complaints, Continuance of care, Re-evaluation by your physician. Problem is new. Symptoms have improved. pm1
[2019-12-01 07:53] VITALS: BP 139/75; TEMP 97.4; O2SAT 99
== END 2019-12-01 07:47 | disposition home or self-care (01) ==
LOC: ER 05:15
DX: R21 Rash and other nonspecific skin eruption (principal); I10 Essential (primary) hypertension; F41.9 Anxiety disorder, unspecified; Z88.5 Allergy status to narcotic agent
CPT/HCPCS: 96372; 99283; J1100

== ENCOUNTER 2020-03-30 09:41 | Emergency (ER) | payer OTHER ==
[2020-03-30 10:21] LABS: Urine Blood 3+ (NEG); Urine Glucose TRACE (NEG); Urine Protein 2+ (NEG); Urine Specific Gravity 1.025 (1.005-1.030); Urine pH 5.5 (5.0-7.0)
--- NOTE | 2020-03-30 11:08 | ER ---
Nurse's Notes [facility] Name: Jaida Chance Age: 84 yrs Sex: Female : 1935 Arrival Date: 03/30/2020 Time: 09:46 Bed 18 Private MD: Isidro Villafuerte Diagnosis: Dysuria Presentation: 03/30 10:22 Chief complaint: Patient states: burning with urination and blood in urine. Coronavirus ah screen: At this time, the client does not indicate any symptoms associated with coronavirus-19. Ebola Screen: No symptoms or risks identified at this time. Initial Sepsis Screen: Does the patient meet any 2 criteria? No. Patient's initial sepsis screen is negative. Does the patient have a suspected source of infection? No. Patient's initial sepsis screen is negative. Risk Assessment: Do you want to hurt yourself or someone else? Patient reports no desire to harm self or others. Onset of symptoms was March 30, 2020. 10:22 Method Of Arrival: Ambulatory 10:22 Acuity: EILEEN 3 Historical: - Allergies: 10:27 Codeine (Upset stomach); 10:27 Milk/dairy products; - Home Meds: 10:27 Boniva Oral [Active]; cholestyramine (with sugar) Oral [Active]; escitalopram oxalate ah 20 mg Oral tab [Active]; Evista Oral [Active]; ibandronate Oral [Active]; ibandronate 150 mg Oral tab [Active]; Lexapro Oral [Active]; lorazepam 0.5 mg Oral tab [Active]; Lorazepam Oral [Active]; propranolol 20 mg Oral tab [Active]; Propranolol Oral [Active]; raloxifene 60 mg Oral tab [Active]; raloxifene 60 mg Oral tab 1 tab once daily [Active]; - PMHx: 10:27 Anxiety; Hypertension; - PSHx: 10:27 ; Appendectomy; - Immunization history:: Adult Immunizations up to date, Flu vaccine is not up to date. It has been more than one year since last vaccine. - Social history:: Smoking status: Patient/guardian denies using tobacco, the patient reports quitting approximately 40 years ago, Patient uses alcohol, occasionally. Screenin:28 Abuse screen: Denies threats or abuse. Nutritional screening: No deficits noted. Tuberculosis screening: No symptoms or risk factors identified. Fall Risk None identified. Assessment: 10:30 General: Appears in no apparent distress. Pain:. Neuro: Level of Consciousness is awake, alert, obeys commands, Oriented to person, place, time, situation, Appropriate for age. Cardiovascular: Denies Capillary refill < 3 seconds Patient's skin is warm and dry. Respiratory: Airway is patent Respiratory effort is even, unlabored, Respiratory pattern is regular, symmetrical. : Reports burning with urination, blood in urine. Derm: Skin is intact, is healthy with good turgor. 11:45 Reassessment: Injection given per MD orders. 12:05 Reassessment: No adverse reactions noted. discharge instructions given and educated on prescriptions. pt voiced understanding. Vital Signs: 10:22 BP 137 / 53; Pulse 64; Resp 17; Temp 97.1; Pulse Ox 100% ; Weight 47.63 kg; Height 5 ft. 0 in. (152.40 cm); 10:22 Body Mass Index 20.51 (47.63 kg, 152.40 cm) ED Course: 09:46 Patient arrived in ED. 5 09:46 Isidro Villafuerte MD is Private Physician. [facility] 09:54 Jesús Nathan [facility] 09:54 Tejas Kinsey MD is Attending Physician. [facility] 10:13 Marilynn Julian, RN is Primary Nurse. 10:24 Triage completed. 10:26 Patient has correct armband on for positive identification. Bed in low position. Call [facility] light in reach. Warm blanket given. Pulse ox on. NIBP on. 10:27 Urine collected: clean catch specimen, crispin colored. [facility] 10:27 Urine Culture Sent. [facility] 11:07 Isidro Villafuerte MD is Referral Physician. [facility] 12:23 No provider procedures requiring assistance completed. Patient did not have IV access during this emergency room visit. Administered Medications: 11:45 Drug: Rocephin (cefTRIAXone) 1 grams Route: IM; Site: right ventrogluteal; 12:18 Follow up: Response: No adverse reaction Outcome: 11:07 Discharge ordered by MD. [facility] 12:22 Discharged to home ambulatory. 12:22 Condition: good 12:22 Discharge instructions given to patient, Instructed on discharge instructions, follow up and referral plans. medication usage, Demonstrated understanding of instructions, follow-up care, medications, Prescriptions given X 1. 12:23 Patient left the ED. Signatures: Jesús Nathan PA PA jmm Martinez, Maria 5 Oliver Beck 5 Marilynn Julian RN RN Corrections: (The following items were deleted from the chart) 12:19 Reassessment: Injection given per MD orders. [facility]
--- NOTE | 2020-03-30 11:08 | EDPHYS ---
Physician Documentation [facility] Name: Jaida Chance Age: 84 yrs Sex: Female : 1935 Arrival Date: 03/30/2020 Time: 09:46 Bed 18 Private MD: Isidro Villafuerte ED Physician Tejas Kinsey HPI: 03/30 10:16 This 84 yrs old Female presents to ER via Unassigned with complaints of jmm Urinary Problem. 10:16 The patient presents with urinary symptoms. jmm 10:16 Onset: The symptoms/episode began/occurred gradually, 2 week(s) ago. Modifying factors: jmm The symptoms are alleviated by nothing, the symptoms are aggravated by nothing. Associated signs and symptoms: Pertinent negatives: fever, vomiting. This is an 84 year old female with a history of htn that presents to the ED with complaints of painful urination beginning today. Patient states she initially felt increased frequency about 2 weeks go and attempted to take cranberry juice and apple cider vinegar. . Historical: - Allergies: 10:27 Codeine (Upset stomach); ah 10:27 Milk/dairy products; - Home Meds: 10:27 Boniva Oral [Active]; cholestyramine (with sugar) Oral [Active]; escitalopram oxalate ah 20 mg Oral tab [Active]; Evista Oral [Active]; ibandronate Oral [Active]; ibandronate 150 mg Oral tab [Active]; Lexapro Oral [Active]; lorazepam 0.5 mg Oral tab [Active]; Lorazepam Oral [Active]; propranolol 20 mg Oral tab [Active]; Propranolol Oral [Active]; raloxifene 60 mg Oral tab [Active]; raloxifene 60 mg Oral tab 1 tab once daily [Active]; - PMHx: 10:27 Anxiety; Hypertension; - PSHx: 10:27 ; Appendectomy; - Immunization history:: Adult Immunizations up to date, Flu vaccine is not up to date. It has been more than one year since last vaccine. - Social history:: Smoking status: Patient/guardian denies using tobacco, the patient reports quitting approximately 40 years ago, Patient uses alcohol, occasionally. ROS: 10:16 Constitutional: Negative for fever, chills, and weight loss, Cardiovascular: Negative jmm for chest pain, palpitations, and edema, Respiratory: Negative for shortness of breath, cough, wheezing, and pleuritic chest pain. 10:16 : Positive for urinary symptoms, urinary frequency. 10:16 All other systems are negative. Exam: 10:16 Constitutional: This is a well developed, well nourished patient who is awake, alert, jmm and in no acute distress. Head/Face: atraumatic. Eyes: EOMI, no conjunctival erythema appreciated ENT: Moist Mucus Membranes Neck: Trachea midline, Supple Chest/axilla: Normal chest wall appearance and motion. Cardiovascular: Regular rate and rhythm. No edema appreciated Respiratory: Normal respirations, no respiratory distress appreciated 10:16 Skin: General appearance color normal MS/ Extremity: Moves all extremities, no obvious deformities appreciated, no edema noted to the lower extremities Neuro: Awake and alert, normal gait Psych: Behavior is normal, Mood is normal, Patient is cooperative and pleasant 10:16 Abdomen/GI: Inspection: abdomen appears normal, Bowel sounds: normal, Palpation: abdomen is soft and non-tender, in all quadrants. 10:16 Back: CVA tenderness, is absent, is noted bilaterally. Vital Signs: 10:22 BP 137 / 53; Pulse 64; Resp 17; Temp 97.1; Pulse Ox 100% ; Weight 47.63 kg; Height 5 ah ft. 0 in. (152.40 cm); 10:22 Body Mass Index 20.51 (47.63 kg, 152.40 cm) ah MDM: 10:15 Patient medically screened. [facility] 11:05 Data reviewed: vital signs, nurses notes. Counseling: I had a detailed discussion with dixie the patient and/or guardian regarding: the historical points, exam findings, and any diagnostic results supporting the discharge/admit diagnosis, lab results, the need for outpatient follow up, to return to the emergency department if symptoms worsen or persist or if there are any questions or concerns that arise at home. ED course: Patient is alert and non toxic in appearance in the ED. No vomiting, not septic in appearance. Patient is prescribed a course of abx and is otherwise given strict return precautions. Patient understood and agrees with the plan of care. . 03/30 10:18 Order name: Urine Dipstick--Ancillary (enter results); Complete Time: : eb 03/30 10:22 Order name: Urine Culture [facility] Administered Medications: 11:45 Drug: Rocephin (cefTRIAXone) 1 grams Route: IM; Site: right ventrogluteal; 12:18 Follow up: Response: No adverse reaction Disposition: 03/31 07:12 Co-signature as Attending Physician, Tejas Kinsey MD I agree with the assessment and [facility] plan of care. Disposition: 03/30/20 11:07 Discharged to Home. Impression: Dysuria. - Condition is Stable. - Discharge Instructions: Dysuria. - Prescriptions for Cephalexin 500 mg Oral Capsule - take 1 capsule by ORAL route every 8 hours for 10 days; 30 capsule. - Medication Reconciliation Form, Thank You Letter, Antibiotic Education, Prescription Opioid Use form. - Follow up: Isidro Villafuerte MD; When: 2 - 3 days; Reason: Recheck today's complaints, Continuance of care, Re-evaluation by your physician. Signatures: Dispatcher [employer] EDTejas Chamberlain MD MD cha Mickail, Joel, PA PA [facility] Marilynn Julian RN RN Corrections: (The following items were deleted from the chart) 03/30 12:23 11:07 03/30/2020 11:07 Discharged to Home. Impression: Dysuria. Condition is Stable. Forms are Medication Reconciliation Form, Thank You Letter, Antibiotic Education, Prescription Opioid Use. Follow up: Isidro Villafuerte; When: 2 - 3 days; Reason: Recheck today's complaints, Continuance of care, Re-evaluation by your physician. dixie
[2020-03-30] MEDS ORDERED: CEFTRIAXONE 1000 MG/VIAL ONE (11:54)
[2020-03-30] MEDS ORDERED: LIDOCAINE 1% MPF 5 ML VIAL ONE (11:54)
[2020-03-30 12:28] VITALS: BP 137/53; TEMP 97.1; O2SAT 100
== END 2020-03-30 12:23 | disposition home or self-care (01) ==
LOC: ER 09:41
DX: R30.0 Dysuria (principal); I10 Essential (primary) hypertension; F41.9 Anxiety disorder, unspecified; Z88.5 Allergy status to narcotic agent; Z91.011 Allergy to milk products
CPT/HCPCS: 81003; 87086; 87088; 96372; 99284

== ENCOUNTER 2020-11-19 20:14 | Emergency (ER) | payer OTHER ==
--- NOTE | 2020-11-19 21:21 | RAD REPORT ---
EXAM DESCRIPTION: RAD - Forearm Left - 11/19/2020 9:15 pm CLINICAL HISTORY: Left forearm pain status post injury FINDINGS: Impaction comminuted fracture distal radius. Angulation present at the fracture site. Mode rate displacement of fracture fragments Fracture ulnar styloid process 7 millimeter spur extends off distal humerus
[2020-11-19] MEDS ORDERED: LIDOCAINE 1% W/EPI 1:100,000 MDV 20 ML VIAL ONE (22:42)
[2020-11-19] MEDS ORDERED: TRAMADOL HCL 50 MG TAB ONE (22:48)
--- NOTE | 2020-11-19 23:06 | EDPHYS ---
Physician Documentation [facility] Name: Jaida Chance Age: 85 yrs Sex: Female : 1935 Arrival Date: 11/19/2020 Time: 20:15 Bed 4 Private MD: ED Physician Fabrice Moses HPI: 11/19 23:03 This 85 yrs old Female presents to ER via Wheelchair with complaints of Arm kb Injury, Arm Pain. 23:03 The patient or guardian complains of decreased range of motion, deformity, injury, kb pain, swelling, tenderness. The complaints affect the left wrist. Context: The problem was sustained at home, resulted from a fall, on an outstretched hand. Onset: The symptoms/episode began/occurred just prior to arrival. Treatment prior to arrival includes: no previous treatment. Modifying factors: The symptoms are alleviated by nothing. the symptoms are aggravated by movement. Associated signs and symptoms: Pertinent positives: decreased range of motion, deformity, pain, swelling. Severity of symptoms: At their worst the symptoms were moderate, in the emergency department the symptoms are unchanged. The patient has not experienced similar symptoms in the past. The patient has not recently seen a physician. Historical: - Allergies: 20:47 Codeine (Upset stomach); vg1 20:47 Milk/dairy products; vg1 - PMHx: 20:47 Anxiety; Hypertension; vg1 - Immunization history:: Adult Immunizations up to date. - Social history:: Smoking status: Patient denies any tobacco usage or history of. ROS: 22:35 Constitutional: Negative for fever, chills, and weight loss. kb 22:35 MS/extremity: Positive for injury or acute deformity, decreased range of motion, ecchymosis, pain, swelling, tenderness, of the left wrist. 22:35 All other systems are negative. Exam: 23:03 Constitutional: This is a well developed, well nourished patient who is awake, alert, kb and in no acute distress. Head/Face: Normocephalic, atraumatic. Cardiovascular: Regular rate and rhythm with a normal S1 and S2. No gallops, murmurs, or rubs. No pulse deficits. Respiratory: Respirations even and unlabored. No increased work of breathing, no retractions or nasal flaring. Abdomen/GI: Soft, non-tender. No distention Skin: Warm, dry with normal turgor. Normal color. Neuro: Awake and alert, GCS 15, oriented to person, place, time, and situation. Moves all extremities. Normal gait. Psych: Awake, alert, with orientation to person, place and time. Behavior, mood, and affect are within normal limits. 23:03 Musculoskeletal/extremity: Extremities: grossly normal except: noted in the left wrist: decreased ROM, deformity, ecchymosis, pain, swelling, tenderness, ROM: limited active range of motion, in the left wrist, Circulation is intact in all extremities. Sensation intact. Vital Signs: 20:45 BP 137 / 59; Pulse 65; Resp 16; Temp 97.3; Pulse Ox 99% ; Weight 47.63 kg; Height 4 ft. vg1 11 in. (149.86 cm); Pain 9/10; 20:45 Body Mass Index 21.21 (47.63 kg, 149.86 cm) vg1 Procedures: 22:33 Nerve block: Hematoma block of left wrist/fracture site. Medication: Lidocaine 1% with juan epinephrine, Amount: 5 mls were injected, Effect: the patient's symptoms are improved, Set up for procedure. Performed by Sita KHAN Patient tolerated well. 23:04 Splinting: Splint applied to left arm using Orthoglass splint, applied by tech. kb Examined by me, post splint application: neurovascular intact, Patient tolerated well. MDM: 22:12 Patient medically screened. kb 22:34 Data reviewed: vital signs, nurses notes. Data interpreted: Pulse oximetry: on room air kb is 99 %. Interpretation: normal. Counseling: I had a detailed discussion with the patient and/or guardian regarding: the historical points, exam findings, and any diagnostic results supporting the discharge/admit diagnosis, radiology results, the need for outpatient follow up, a family practitioner, to return to the emergency department if symptoms worsen or persist or if there are any questions or concerns that arise at home. 23:02 ED course: Dr Moses reduced fracture prior to splint being applied. kb 11/19 20:51 Order name: Forearm Left XRAY; Complete Time: 21:37 vg1 11/19 22:34 Order name: Sugar Tong Forearm Splint; Complete Time: 23:02 kb Administered Medications: 22:23 Drug: Lidocaine-Epinephrine -1%: (1:100,000) 1 vials Volume: 20 ml; Route: jm8 Infiltration; Site: affected area; 22:30 Drug: traMADol 50 mg Route: PO; jm8 23:03 Follow up: Response: No adverse reaction; Pain is decreased jm8 Disposition: 11/19/20 23:06 Discharged to Home. Impression: Displaced fracture left radius, Fracture ulnar styloid process, Fall on same level from slipping, tripping and stumbling. - Condition is Stable. - Discharge Instructions: Forearm Fracture, [id number], Cast or Splint Care, [id number]. - Prescriptions for Tramadol 50 mg Oral Tablet - take 1 tablet by ORAL route every 8 hours as needed; 12 tablet. - Medication Reconciliation Form, Thank You Letter, Antibiotic Education, Prescription Opioid Use form. - Follow up: Emergency Department; When: As needed; Reason: Worsening of condition. Follow up: Private Physician; When: 2 - 3 days; Reason: Recheck today's complaints, Continuance of care, Re-evaluation by your physician. Signatures: Dispatcher [employer] EDKY Sita Velázquez, STATION COOK-C STATION COOK-Ckb Hiren Chakraborty mw2 Johanna Gusman, RN RN vg1 Franklin Winn, RN RN jm8 Corrections: (The following items were deleted from the chart) 23:23 23:06 11/19/2020 23:06 Discharged to Home. Impression: Displaced fracture left radius; mw2 Fracture ulnar styloid process; Fall on same level from slipping, tripping and stumbling. Condition is Stable. Forms are Medication Reconciliation Form, Thank You Letter, Antibiotic Education, Prescription Opioid Use. Follow up: Emergency Department; When: As needed; Reason: Worsening of condition. Follow up: Private Physician; When: 2 - 3 days; Reason: Recheck today's complaints, Continuance of care, Re-evaluation by your physician. kb
--- NOTE | 2020-11-19 23:06 | ER ---
Nurse's Notes [facility] Name: Jaida Chance Age: 85 yrs Sex: Female : 1935 Arrival Date: 11/19/2020 Time: 20:15 Bed 4 Private MD: Diagnosis: Displaced fracture left radius;Fracture ulnar styloid process;Fall on same level from slipping, tripping and stumbling Presentation: 11/19 20:45 Chief complaint: Patient states: Pt stated was trying to wash foot in the sink when she vg1 began slipping and landed on Left Wrist. Pt denies hitting head. Swelling noted to Left Wrist. Coronavirus screen: Client denies travel out of the [place] in the last 14 days. Ebola Screen: Patient negative for fever greater than or equal to 101.5 degrees Fahrenheit, and additional compatible Ebola Virus Disease symptoms. Initial Sepsis Screen: Does the patient meet any 2 criteria? No. Patient's initial sepsis screen is negative. Does the patient have a suspected source of infection? No. Patient's initial sepsis screen is negative. Risk Assessment: Do you want to hurt yourself or someone else? Patient reports no desire to harm self or others. Onset of symptoms was November 19, 2020. 20:45 Method Of Arrival: Wheelchair vg1 20:45 Acuity: EILEEN 4 vg1 Triage Assessment: 20:47 General: Appears in no apparent distress. uncomfortable, Behavior is calm, cooperative. vg1 Pain: Complains of pain in dorsal aspect of left wrist Pain currently is 9 out of 10 on a pain scale. Musculoskeletal: Swelling present in dorsal aspect of left wrist. Injury Description: Pt fell on Left Wrist. Historical: - Allergies: 20:47 Codeine (Upset stomach); vg1 20:47 Milk/dairy products; vg1 - PMHx: 20:47 Anxiety; Hypertension; vg1 - Immunization history:: Adult Immunizations up to date. - Social history:: Smoking status: Patient denies any tobacco usage or history of. Screenin:14 Abuse screen: Denies threats or abuse. Denies injuries from another. Nutritional jm8 screening: No deficits noted. Tuberculosis screening: No symptoms or risk factors identified. Fall Risk Assessment: 20:51 Reassessment: Received VO from [facility] for Left forearm xray. vg1 22:14 General: Appears in no apparent distress. uncomfortable. Pain: Complains of pain in jm8 left wrist Pain currently is 9 out of 10 on a pain scale. Pain began suddenly, Alleviated by relaxation, Aggravated by repositioning, weight bearing. Neuro: No deficits noted. Level of Consciousness is awake, alert, obeys commands, Oriented to person, place, time. Cardiovascular: No deficits noted. Respiratory: Airway is patent Trachea midline Respiratory effort is even, unlabored, Respiratory pattern is regular, symmetrical. GI: No deficits noted. No signs and/or symptoms were reported involving the gastrointestinal system. : No deficits noted. No signs and/or symptoms were reported regarding the genitourinary system. EENT: No deficits noted. No signs and/or symptoms were reported regarding the EENT system. Derm: No deficits noted. No signs and/or symptoms reported regarding the dermatologic system. Derm: Skin is intact, is healthy with good turgor, Skin is dry, Skin is pink, warm \T\ dry. normal, Skin temperature is warm. Musculoskeletal: No deficits noted. No signs and/or symptoms reported regarding the musculoskeletal system. Vital Signs: 20:45 BP 137 / 59; Pulse 65; Resp 16; Temp 97.3; Pulse Ox 99% ; Weight 47.63 kg; Height 4 ft. vg1 11 in. (149.86 cm); Pain 9/10; 20:45 Body Mass Index 21.21 (47.63 kg, 149.86 cm) vg1 ED Course: 20:15 Patient arrived in ED. cf2 20:47 Triage completed. vg1 20:47 Arm band placed on. vg1 20:50 Sita Velázquez FNP-C is [facility]. kb 20:50 Fabrice Moses MD is Attending Physician. kb 21:15 Forearm Left XRAY In Process Unspecified. EDMS 22:14 Patient has correct armband on for positive identification. Side rails up X2. Bed in jm8 low position. Call light in reach. Adult w/ patient. 22:14 No provider procedures requiring assistance completed. jm8 23:04 Assist provider with fracture care of left wrist Fracture is closed. Obvious deformity jm8 is noted. Circulation, motor and sensation is intact. Set up for procedure. Performed by Fabrice Moses MD Reduced with traction. Immobilized with preformed splint, Post immobilization, circulation, motor and sensation remain intact. Patient tolerated well. 23:32 Patient did not have IV access during this emergency room visit. jm8 Administered Medications: 22:23 Drug: Lidocaine-Epinephrine -1%: (1:100,000) 1 vials Volume: 20 ml; Route: jm8 Infiltration; Site: affected area; 22:30 Drug: traMADol 50 mg Route: PO; jm8 23:03 Follow up: Response: No adverse reaction; Pain is decreased jm8 Outcome: 23:06 Discharge ordered by . juan 23:23 Patient left the ED. mw2 23:32 Discharged to home via wheelchair, with family. jm8 23:32 Condition: good 23:32 Discharge instructions given to patient, family, Instructed on discharge instructions, follow up and referral plans. medication usage, Demonstrated understanding of instructions, follow-up care, medications, splint care. Signatures: Dispatcher [employer] EDMS Sita Velázquez, ERIN JET SKI MECHANIC-Hiren Reardon mw2 Ej Patel cf2 Johanna Gusman, RN RN vg1 Franklin Winn, RN RN jm8 Corrections: (The following items were deleted from the chart) 20:52 20:51 Reassessment: Received VO for Left forearm xray vg1 vg1
[2020-11-20 01:49] VITALS: BP 137/59; TEMP 97.3; O2SAT 99
== END 2020-11-19 23:23 | disposition home or self-care (01) ==
LOC: ER 20:14
PROC: 2W3DX1Z Immobilization of Left Lower Arm using Splint (ICD-10-PCS; principal; 2020-11-19)
DX: S52.502A Unspecified fracture of the lower end of left radius, initial encounter for closed fracture (principal); S52.612A Displaced fracture of left ulna styloid process, initial encounter for closed fracture; W01.0XXA Fall on same level from slipping, tripping and stumbling without subsequent striking against object, initial encounter; Y92.009 Unspecified place in unspecified non-institutional (private) residence as the place of occurrence of the external cause; F41.9 Anxiety disorder, unspecified; I10 Essential (primary) hypertension
CPT/HCPCS: 99284

== ENCOUNTER 2020-11-20 17:34 | Emergency (ER) | payer OTHER ==
--- NOTE | 2020-11-20 19:00 | ER ---
Nurse's Notes [facility] Name: Jaida Chance Age: 85 yrs Sex: Female : 1935 Arrival Date: 11/20/2020 Time: 17:35 Bed 14 Private MD: Diagnosis: Encounter for adjustment of splint Presentation: 11/20 17:44 Chief complaint: Patient states: Was here for a broken L arm last night, they placed a ca1 splint on. I am here because I want it removed, it is heavier than me and it's tight. Coronavirus screen: Client denies travel out of the [place] in the last 14 days. At this time, the client does not indicate any symptoms associated with coronavirus-19. Ebola Screen: Patient negative for fever greater than or equal to 101.5 degrees Fahrenheit, and additional compatible Ebola Virus Disease symptoms Patient denies exposure to infectious person. Patient denies travel to an Ebola-affected area in the 21 days before illness onset. No symptoms or risks identified at this time. Initial Sepsis Screen: Does the patient meet any 2 criteria? No. Patient's initial sepsis screen is negative. Does the patient have a suspected source of infection? No. Patient's initial sepsis screen is negative. Risk Assessment: Do you want to hurt yourself or someone else? Patient reports no desire to harm self or others. Onset of symptoms was November 20, 2020. 17:44 Method Of Arrival: Ambulatory ca1 17:44 Acuity: EILEEN 4 ca1 Historical: - Allergies: 17:48 Codeine (Upset stomach); ca1 17:48 Milk/dairy products; ca1 - PMHx: 17:48 Anxiety; Hypertension; ca1 - Immunization history:: Client reports having NOT received the Covid vaccine. Pneumococcal vaccine is up to date, Flu vaccine is not up to date. - Social history:: Smoking status: Patient denies any tobacco usage or history of. Screenin:00 Abuse screen: Denies threats or abuse. Denies injuries from another. Nutritional wh screening: No deficits noted. Tuberculosis screening: No symptoms or risk factors identified. Fall Risk Fall in past 12 months (25 points). Assessment: 18:30 General: Appears in no apparent distress. uncomfortable, Behavior is calm, cooperative. vg1 Pain: Complains of pain in left arm Pain currently is 8 out of 10 on a pain scale. Neuro: Level of Consciousness is awake, alert, obeys commands, Oriented to person, place, time, situation. Cardiovascular: Patient's skin is warm and dry. Respiratory: Airway is patent Respiratory effort is even, unlabored. Derm: Bruising that is dark purple, on left wrist. Musculoskeletal: Swelling present in left wrist. 19:00 General: Appears in no apparent distress. Behavior is calm, cooperative, appropriate wh for age. Pain: Denies pain. Neuro: Level of Consciousness is awake, alert, obeys commands. Cardiovascular: Capillary refill < 3 seconds. Respiratory: Airway is patent Respiratory effort is even, unlabored, Respiratory pattern is regular, symmetrical. GI: Abdomen is flat, non-distended. : No signs and/or symptoms were reported regarding the genitourinary system. EENT: No signs and/or symptoms were reported regarding the EENT system. Derm: Skin is intact, Skin is pink, warm \T\ dry. Musculoskeletal: Range of motion: limited in left arm. Vital Signs: 17:44 BP 108 / 68; Pulse 62; Resp 16 S; Temp 97.6(TE); Pulse Ox 97% on R/A; Weight 47.63 kg ca1 (R); Height 4 ft. 11 in. (149.86 cm) (R); Pain 7/10; 19:00 BP 110 / 70; Pulse 64; Resp 18; Pulse Ox 98% on R/A; wh 17:44 Body Mass Index 21.21 (47.63 kg, 149.86 cm) ca1 ED Course: 17:35 Patient arrived in ED. ds1 17:47 Triage completed. ca1 17:48 Arm band placed on right wrist. ca1 17:56 S[facility] Vel[facility]C [facility] kb 17:56 Gene Rouse MD is Attending Physician. kb 18:28 Johanna Gusman, RN is Primary Nurse. vg1 18:52 Orthoglass splint: Sugar tong splint applied on left arm. Sling applied to left arm. mb4 19:00 Patient has correct armband on for positive identification. Bed in low position. Call wh light in reach. Side rails up X 1. Pulse ox on. NIBP on. 19:13 Primary Nurse role handed off by Johanna Gusman, RN mw2 19:13 No provider procedures requiring assistance completed. Patient did not have IV access during this emergency room visit. 19:15 Millicent De La Garza, RN is Primary Nurse. Administered Medications: No medications were administered Outcome: 18:59 Discharge ordered by . juan 19:14 Discharged to home ambulatory. 19:14 Condition: stable 19:14 Discharge instructions given to patient, Instructed on discharge instructions, follow up and referral plans. POC Demonstrated understanding of instructions, follow-up care, splint care, POC 19:15 Patient left the ED. Signatures: Sita Velázquez, CUFF SETTER LOCKSTITCH-C CUFF SETTER LOCKSTITCH-Ckb Patricia Naranjo ds1 Millicent De La Garza, RN RN Hiren Chakraborty mw2 Bethany Alcala mb4 Jazz Thornton RN RN [facility] Johanna Gusman, RN RN vg1
--- NOTE | 2020-11-20 19:00 | EDPHYS ---
Physician Documentation [facility] Name: Jaida Chance Age: 85 yrs Sex: Female : 1935 Arrival Date: 11/20/2020 Time: 17:35 Bed 14 Private MD: ED Physician Gene Rouse HPI: 11/20 19:12 This 85 yrs old Female presents to ER via Ambulatory with complaints of kb Recheck - Arm Injury. 19:12 Pt was seen here yesterday s/p fall for wrist pain. Diagnosed with radius fracture and kb splint applied. Pt states splint feels too heavy so she wanted to get it checked again. . Onset: The symptoms/episode began/occurred today. Severity of symptoms: At their worst the symptoms were moderate in the emergency department the symptoms are unchanged. The patient has not experienced similar symptoms in the past. The patient has been recently seen at the [facility] Emergency Department, yesterday, for similar complaints X-rays were performed. Historical: - Allergies: 17:48 Codeine (Upset stomach); ca1 17:48 Milk/dairy products; ca1 - PMHx: 17:48 Anxiety; Hypertension; ca1 - Immunization history:: Client reports having NOT received the Covid vaccine. Pneumococcal vaccine is up to date, Flu vaccine is not up to date. - Social history:: Smoking status: Patient denies any tobacco usage or history of. ROS: 19:11 Constitutional: Negative for fever, chills, and weight loss. kb 19:11 MS/extremity: Positive for pain, of the left arm, splint in place. Exam: 19:11 Constitutional: This is a well developed, well nourished patient who is awake, alert, kb and in no acute distress. Head/Face: Normocephalic, atraumatic. Respiratory: Respirations even and unlabored. No increased work of breathing, no retractions or nasal flaring. Skin: Warm, dry with normal turgor. Normal color. Neuro: Awake and alert, GCS 15, oriented to person, place, time, and situation. Moves all extremities. Normal gait. Psych: Awake, alert, with orientation to person, place and time. Behavior, mood, and affect are within normal limits. 19:11 Musculoskeletal/extremity: Extremities: grossly normal except: noted in the left arm: pain, splint in place. Vital Signs: 17:44 BP 108 / 68; Pulse 62; Resp 16 S; Temp 97.6(TE); Pulse Ox 97% on R/A; Weight 47.63 kg ca1 (R); Height 4 ft. 11 in. (149.86 cm) (R); Pain 7/10; 19:00 BP 110 / 70; Pulse 64; Resp 18; Pulse Ox 98% on R/A; wh 17:44 Body Mass Index 21.21 (47.63 kg, 149.86 cm) ca1 Procedures: 19:11 Splinting: Splint applied to left arm using Orthoglass splint, applied by tech. kb Examined by me, post splint application: neurovascular intact, brisk capillary refill noted, Patient tolerated well. MDM: 17:56 Patient medically screened. kb 19:10 Data reviewed: vital signs, nurses notes. Data interpreted: Pulse oximetry: on room air kb is 97 %. Interpretation: normal. Counseling: I had a detailed discussion with the patient and/or guardian regarding: the historical points, exam findings, and any diagnostic results supporting the discharge/admit diagnosis, the need for outpatient follow up, a orthopedic surgeon, to return to the emergency department if symptoms worsen or persist or if there are any questions or concerns that arise at home. ED course: Pt has follow up appt with Dr Najera on Tuesday. 11/20 18:08 Order name: Sugar Tong Forearm Splint; Complete Time: 18:28 kb Administered Medications: No medications were administered Disposition: 11/21 06:40 Co-signature as Attending Physician, Gene Rouse MD I agree with the assessment and kdr plan of care. Disposition: 11/20/20 18:59 Discharged to Home. Impression: Encounter for adjustment of splint. - Condition is Stable. - Discharge Instructions: Cast or Splint Care, [id number]. - Medication Reconciliation Form, Thank You Letter, Antibiotic Education, Prescription Opioid Use form. - Follow up: Emergency Department; When: As needed; Reason: Worsening of condition. Follow up: Private Physician; When: 2 - 3 days; Reason: Recheck today's complaints, Continuance of care, Re-evaluation by your physician. Signatures: Sita Velázquez, SB-C SB-Gene Phillips MD MD kdr Habalo, Winsy, RN RN Jazz Thornton RN RN ca1 Corrections: (The following items were deleted from the chart) 11/20 19:15 18:59 11/20/2020 18:59 Discharged to Home. Impression: Encounter for adjustment of wh splint. Condition is Stable. Forms are Medication Reconciliation Form, Thank You Letter, Antibiotic Education, Prescription Opioid Use. Follow up: Emergency Department; When: As needed; Reason: Worsening of condition. Follow up: Private Physician; When: 2 - 3 days; Reason: Recheck today's complaints, Continuance of care, Re-evaluation by your physician. kb
[2020-11-20 19:20] VITALS: TEMP 97.6
[2020-11-20 19:22] VITALS: BP 110/70; O2SAT 98
== END 2020-11-20 19:15 | disposition home or self-care (01) ==
LOC: ER 17:34
PROC: 2W3DX1Z Immobilization of Left Lower Arm using Splint (ICD-10-PCS; principal; 2020-11-20)
DX: S52.92XD Unspecified fracture of left forearm, subsequent encounter for closed fracture with routine healing (principal); I10 Essential (primary) hypertension; Z88.5 Allergy status to narcotic agent; Z91.011 Allergy to milk products
CPT/HCPCS: 99283

== ENCOUNTER 2020-11-22 10:36 | Emergency (ER) | payer OTHER ==
--- NOTE | 2020-11-22 11:00 | EDPHYS ---
Physician Documentation [facility] Name: Jaida Chance Age: 85 yrs Sex: Female : 1935 Arrival Date: 11/22/2020 Time: 10:38 Bed 5 Private MD: ELBERT Physician Tejas Kinsey HPI: 11/22 10:52 This 85 yrs old Female presents to ER via Ambulatory with complaints of Arm shena Injury - RECHECK. 10:52 The patient or guardian complains of pain, that is acute. The complaints affect the shena left antecubital area, dorsal aspect of left forearm, left wrist, left elbow and palmar aspect of left forearm. Context: The problem was sustained at home. Onset: The symptoms/episode began/occurred 3 day(s) ago. Treatment prior to arrival includes: troy wrap, icing the affected extremity, sling, splinting the affected extremity. Modifying factors: The symptoms are alleviated by remaining still, the symptoms are aggravated by movement. Associated signs and symptoms: Pertinent positives: swelling, tingling. Severity of symptoms: At their worst the symptoms were mild, in the emergency department the symptoms have improved, moderately. The patient has experienced similar episodes in the past, a few times. Historical: - Allergies: 10:44 Codeine (Upset stomach); ca1 10:44 Milk/dairy products; ca1 - PMHx: 10:44 Hypertension; Anxiety; ca1 - Immunization history:: Client reports having NOT received the Covid vaccine. Pneumococcal vaccine is not up to date, Flu vaccine is not up to date. - Social history:: Smoking status: Patient denies any tobacco usage or history of. - Family history:: not pertinent. ROS: 10:52 Constitutional: Negative for fever, chills, and weight loss, Eyes: Negative for injury, shena pain, redness, and discharge, ENT: Negative for injury, pain, and discharge, Neck: Negative for injury, pain, and swelling, Cardiovascular: Negative for chest pain, palpitations, and edema, Respiratory: Negative for shortness of breath, cough, wheezing, and pleuritic chest pain, Abdomen/GI: Negative for abdominal pain, nausea, vomiting, diarrhea, and constipation, Back: Negative for injury and pain, : Negative for injury, bleeding, discharge, and swelling, Skin: Negative for injury, rash, and discoloration, Neuro: Negative for headache, weakness, numbness, tingling, and seizure, Psych: Negative for depression, anxiety, suicide ideation, homicidal ideation, and hallucinations, Allergy/Immunology: Negative for hives, rash, and allergies, Endocrine: Negative for neck swelling, polydipsia, polyuria, polyphagia, and marked weight changes, Hematologic/Lymphatic: Negative for swollen nodes, abnormal bleeding, and unusual bruising. 10:52 MS/extremity: Positive for pain, swelling, of the left arm. Exam: 10:52 Constitutional: This is a well developed, well nourished patient who is awake, alert, shena and in no acute distress. Head/Face: Normocephalic, atraumatic. Eyes: Pupils equal round and reactive to light, extra-ocular motions intact. Lids and lashes normal. Conjunctiva and sclera are non-icteric and not injected. Cornea within normal limits. Periorbital areas with no swelling, redness, or edema. ENT: Nares patent. No nasal discharge, no septal abnormalities noted. Tympanic membranes are normal and external auditory canals are clear. Oropharynx with no redness, swelling, or masses, exudates, or evidence of obstruction, uvula midline. Mucous membranes moist. Neck: Trachea midline, no thyromegaly or masses palpated, and no cervical lymphadenopathy. Supple, full range of motion without nuchal rigidity, or vertebral point tenderness. No Meningismus. Chest/axilla: Normal chest wall appearance and motion. Nontender with no deformity. No lesions are appreciated. Cardiovascular: Regular rate and rhythm with a normal S1 and S2. No gallops, murmurs, or rubs. Normal PMI, no JVD. No pulse deficits. Respiratory: Lungs have equal breath sounds bilaterally, clear to auscultation and percussion. No rales, rhonchi or wheezes noted. No increased work of breathing, no retractions or nasal flaring. Abdomen/GI: Soft, non-tender, with normal bowel sounds. No distension or tympany. No guarding or rebound. No evidence of tenderness throughout. Back: No spinal tenderness. No costovertebral tenderness. Full range of motion. Female : Normal external genitalia. Skin: Warm, dry with normal turgor. Normal color with no rashes, no lesions, and no evidence of cellulitis. Neuro: Awake and alert, GCS 15, oriented to person, place, time, and situation. Cranial nerves II-XII grossly intact. Motor strength 5/5 in all extremities. Sensory grossly intact. Cerebellar exam normal. Normal gait. Psych: Awake, alert, with orientation to person, place and time. Behavior, mood, and affect are within normal limits. 10:52 Musculoskeletal/extremity: ROM: limited active range of motion due to pain, limited passive range of motion due to pain, in the left arm, Circulation is intact in all extremities. Sensation intact. Compartment Syndrome exam of affected extremity: is normal. 10:52 Skin: induration, is not appreciated, injury, contusion(s), that are superficial. 10:52 Neuro: Orientation: is normal, appropriate for stated age, no acute changes, Mentation: is normal, appropriate for stated age, no acute changes, Memory: is normal, appropriate for stated age, no acute changes, Cranial nerves: grossly normal, is grossly normal based on the patient's age, no acute changes, Cerebellar function: is grossly normal, is grossly normal based on the patient's age, no acute changes, Motor: is normal, moves all fours, strength is normal, strength is 5/5 in all extremities, Sensation: no obvious gross deficits, Gait: is steady. Vital Signs: 10:40 BP 142 / 78; Pulse 78; Resp 16 S; Temp 97.5(TE); Pulse Ox 94% on R/A; Weight 47.17 kg ca1 (R); Height 4 ft. 11 in. (149.86 cm) (R); Pain 7/10; 10:40 Body Mass Index 21.01 (47.17 kg, 149.86 cm) ca1 MDM: 10:45 Patient medically screened. shena 10:57 Differential diagnosis: closed fracture. Data reviewed: vital signs, nurses notes. Data shena interpreted: school bus monitor: rate is 78 beats/min, rhythm is regular, Pulse oximetry: on room air. Test interpretation: by ED physician or midlevel provider: plain radiologic studies. Counseling: I had a detailed discussion with the patient and/or guardian regarding: the historical points, exam findings, and any diagnostic results supporting the discharge/admit diagnosis, lab results, radiology results. 11/22 10:52 Order name: Troy Wrap; Complete Time: 11:00 shena Administered Medications: No medications were administered Disposition: 11/22/20 10:59 Discharged to Home. Impression: Pain in left forearm - SPLINT ADJUSTMENT, LOOSENED. - Condition is Stable. - Discharge Instructions: Musculoskeletal Pain, Cryotherapy, [id number], Cryotherapy. - Medication Reconciliation Form, Thank You Letter, Antibiotic Education, Prescription Opioid Use form. - Follow up: [place] Najera MD; When: 2 - 3 days; Reason: Recheck today's complaints, Continuance of care, Re-evaluation by your physician. - Problem is new. - Symptoms have improved. Signatures: Tejas Kinsey MD MD cha Peltier, Brian RN RN bp Jazz Thornton RN RN [facility] Corrections: (The following items were deleted from the chart) 11:08 10:59 11/22/2020 10:59 Discharged to Home. Impression: Pain in left forearm - SPLINT bp ADJUSTMENT, LOOSENED. Condition is Stable. Forms are Medication Reconciliation Form, Thank You Letter, Antibiotic Education, Prescription Opioid Use. Follow up: Dr. [place] Najera; When: 2 - 3 days; Reason: Recheck today's complaints, Continuance of care, Re-evaluation by your physician. Problem is new. Symptoms have improved. [facility]
--- NOTE | 2020-11-22 11:00 | ER ---
Nurse's Notes [facility] Name: Jaida Chance Age: 85 yrs Sex: Female : 1935 Arrival Date: 11/22/2020 Time: 10:38 Bed 5 Private MD: Diagnosis: Pain in left forearm-SPLINT ADJUSTMENT, LOOSENED Presentation: 11/22 10:40 Chief complaint: Patient states: Splint on L arm, noticed swelling of fingers ca1 yesterday, bluish discoloration of 2nd, 3rd and 4th digit of L hand. Coronavirus screen: At this time, the client does not indicate any symptoms associated with coronavirus-19. Ebola Screen: Patient negative for fever greater than or equal to 101.5 degrees Fahrenheit, and additional compatible Ebola Virus Disease symptoms Patient denies exposure to infectious person. Patient denies travel to an Ebola-affected area in the 21 days before illness onset. No symptoms or risks identified at this time. Initial Sepsis Screen: Does the patient meet any 2 criteria? No. Patient's initial sepsis screen is negative. Does the patient have a suspected source of infection? No. Patient's initial sepsis screen is negative. Risk Assessment: Do you want to hurt yourself or someone else? Patient reports no desire to harm self or others. Onset of symptoms was November 22, 2020. 10:40 Method Of Arrival: Ambulatory ca1 10:40 Acuity: EILEEN 3 ca1 Triage Assessment: 10:50 General: Appears in no apparent distress. uncomfortable, Behavior is cooperative, bp appropriate for age, anxious. Pain: Complains of pain in left hand. EENT: No deficits noted. Neuro: Level of Consciousness is awake, alert, obeys commands, Oriented to Appropriate for age. Cardiovascular: No deficits noted. Respiratory: No deficits noted. GI: No signs and/or symptoms were reported involving the gastrointestinal system. : No signs and/or symptoms were reported regarding the genitourinary system. Derm: No deficits noted. Musculoskeletal: Reports pain in left hand. Injury Description: Deformity sustained to left arm. Historical: - Allergies: 10:44 Codeine (Upset stomach); ca1 10:44 Milk/dairy products; ca1 - PMHx: 10:44 Hypertension; Anxiety; ca1 - Immunization history:: Client reports having NOT received the Covid vaccine. Pneumococcal vaccine is not up to date, Flu vaccine is not up to date. - Social history:: Smoking status: Patient denies any tobacco usage or history of. - Family history:: not pertinent. Screenin:50 Abuse screen: Denies threats or abuse. Denies injuries from another. Nutritional bp screening: No deficits noted. Tuberculosis screening: No symptoms or risk factors identified. Fall Risk None identified. Assessment: 10:50 General: SEE TRIAGE NOTE. bp 11:06 Reassessment: PT D/C HOME AMBULATORY WITH FAMILY, DX WITH SPLINT ADJUSTMENT. bp Vital Signs: 10:40 BP 142 / 78; Pulse 78; Resp 16 S; Temp 97.5(TE); Pulse Ox 94% on R/A; Weight 47.17 kg ca1 (R); Height 4 ft. 11 in. (149.86 cm) (R); Pain 7/10; 10:40 Body Mass Index 21.01 (47.17 kg, 149.86 cm) ca1 ED Course: 10:38 Patient arrived in ED. ds1 10:40 Arm band placed on right wrist. ca1 10:43 Triage completed. ca1 10:45 Tejas Kinsey MD is Attending Physician. shena 10:50 Patient has correct armband on for positive identification. Bed in low position. Call bp light in reach. Side rails up X2. 10:52 Erwin Nielsen, RN is Primary Nurse. bp 10:58 Boston Najera MD is Referral Physician. shena 11:06 No provider procedures requiring assistance completed. Patient did not have IV access bp during this emergency room visit. Administered Medications: No medications were administered Outcome: 10:59 Discharge ordered by . shena 11:06 Discharged to home ambulatory, with family. bp 11:06 Condition: stable 11:06 Discharge instructions given to patient, Instructed on discharge instructions, follow up and referral plans. Demonstrated understanding of instructions, follow-up care, splint care. 11:08 Patient left the ED. bp Signatures: Tejas Kinsey MD MD cha Sanford, Demi ds1 Erwin Nielsen, RN RN bp Jazz Thornton RN RN ca1 Corrections: (The following items were deleted from the chart) 10:44 10:40 Acuity: EILEEN 4 ca1 ca1
[2020-11-22 11:15] VITALS: BP 142/78; TEMP 97.5; O2SAT 94
== END 2020-11-22 11:08 | disposition home or self-care (01) ==
LOC: ER 10:36
DX: M79.632 Pain in left forearm (principal); I10 Essential (primary) hypertension; F41.9 Anxiety disorder, unspecified
CPT/HCPCS: 99281

== ENCOUNTER 2020-11-24 11:47 | Emergency (ER) | payer OTHER ==
--- NOTE | 2020-11-24 12:41 | ER ---
Nurse's Notes [facility] Name: Jaida Chance Age: 85 yrs Sex: Female : 1935 Arrival Date: 11/24/2020 Time: 11:48 Bed 15 Private MD: Diagnosis: Pain in left elbow;Edema, not elsewhere classified-Left arm, status post fracture and splinting Presentation: 11/24 12:05 Chief complaint: Patient states: Has a broken L arm for over 1 week. L elbow burning ll1 pain for 1 day. (3rd visit for the same broken arm). Dr. Najera appt. Tuesday. PMS intact. Coronavirus screen: Client denies travel out of the [place] in the last 14 days. At this time, the client does not indicate any symptoms associated with coronavirus-19. Ebola Screen: Patient denies travel to an Ebola-affected area in the 21 days before illness onset. Initial Sepsis Screen: Does the patient meet any 2 criteria? No. Patient's initial sepsis screen is negative. Does the patient have a suspected source of infection? Yes: Bone or joint infection. Risk Assessment: Do you want to hurt yourself or someone else? Patient reports no desire to harm self or others. Onset of symptoms was November 24, 2020. 12:05 Method Of Arrival: Ambulatory ll1 12:05 Acuity: EILEEN 4 ll1 Historical: - Allergies: 12:09 Codeine (Upset stomach); ll1 12:09 Milk/dairy products; ll1 - PMHx: 12:09 Anxiety; Hypertension; ll1 - PSHx: 12:09 ; Appendectomy; ll1 - Immunization history:: Flu vaccine is not up to date. - Social history:: Smoking status: Patient/guardian denies using tobacco, the patient reports quitting approximately 40 years ago. - Family history:: not pertinent. - Hospitalizations: : No recent hospitalization is reported. Screenin:50 Abuse screen: Denies threats or abuse. Nutritional screening: No deficits noted. vg1 Tuberculosis screening: No symptoms or risk factors identified. Fall Risk Fall in past 12 months (25 points). No secondary diagnosis (0 pts). No IV (0 pts). Ambulatory Aid- None/Bed Rest/Nurse Assist (0 pts). Gait- Normal/Bed Rest/Wheelchair (0 pts) Mental Status- Oriented to own ability (0 pts). Total Meza Fall Scale indicates Low Risk Score (25-44 pts). Fall prevention measures have been instituted. Side Rails Up X 2 Placed close to Nursing Station Family Present and informed to notify staff if they need to leave bedside. Assessment: 12:48 General: Appears in no apparent distress. uncomfortable, Behavior is calm, cooperative. vg1 Pain: Complains of pain in Left wrist and left elbow Pain currently is 10 out of 10 on a pain scale. Noted to be grimacing, guarding. Neuro: Level of Consciousness is awake, alert, obeys commands, Oriented to person, place, time, situation. Cardiovascular: Capillary refill < 3 seconds in left fingers. Respiratory: Airway is patent Respiratory effort is even, unlabored. Derm: Skin is intact, Bruising that is dark purple, on Left hand and left wrist. Musculoskeletal: Range of motion: limited in left wrist. Vital Signs: 12:05 BP 157 / 83; Pulse 84; Resp 16; Temp 97.6; Pulse Ox 99% ; Weight 47.17 kg; Height 4 ft. ll1 11 in. (149.86 cm); Pain 5/10; 12:05 Body Mass Index 21.01 (47.17 kg, 149.86 cm) ll1 ED Course: 11:48 Patient arrived in ED. bp1 12:08 Triage completed. ll1 12:09 Arm band placed on. ll1 12:26 Jose Raul Medellin MD is Attending Physician. rn 12:33 Johanna Gusman RN is Primary Nurse. vg1 12:40 Boston Najera MD is Referral Physician. rn 12:51 Patient has correct armband on for positive identification. Bed in low position. Call vg1 light in reach. Side rails up X 1. Adult w/ patient. 12:57 Velcro wrist splint applied to left wrist. dh4 13:01 No provider procedures requiring assistance completed. Patient did not have IV access vg1 during this emergency room visit. Administered Medications: No medications were administered Outcome: 12:40 Discharge ordered by . rn 13:01 Discharged to home ambulatory. vg1 13:01 Condition: stable 13:01 Discharge instructions given to patient, Instructed on discharge instructions, follow up and referral plans. Demonstrated understanding of instructions, follow-up care. 13:01 Patient left the ED. vg1 Signatures: Jose Raul Medellin MD MD rn Agusto Hurd 4 Johanna Gusman RN RN vg1 Ben Garsia RN RN ll1 Venita Silva [facility]
--- NOTE | 2020-11-24 12:41 | EDPHYS ---
Physician Documentation [facility] Name: Jaida Chance Age: 85 yrs Sex: Female : 1935 Arrival Date: 11/24/2020 Time: 11:48 Bed 15 Private MD: ED Physician Jose Raul Medellin HPI: 11/24 12:35 This 85 yrs old Female presents to ER via Ambulatory with complaints of Wrist rn Injury, Elbow Pain. 12:35 The patient or guardian reports pain. Onset: The symptoms/episode began/occurred at an rn unknown time. Modifying factors: The symptoms are alleviated by elevation, the symptoms are aggravated by dependent position. Associated signs and symptoms: Pertinent negatives: cyanosis distally, decreased sensation distally, fever, numbness distally, tingling distally. The patient has not experienced similar symptoms in the past. The patient has been recently seen by a physician: The patient has been recently seen at the [facility] Emergency Department. Reports fell 1 week ago and broke left wrist, this is 3rd visit or so for same injury, has had splint changed, now states left elbow is "burning". Has not been elevating arm recently due to weight. No new injury. . Historical: - Allergies: 12:09 Codeine (Upset stomach); ll1 12:09 Milk/dairy products; ll1 - PMHx: 12:09 Anxiety; Hypertension; ll1 - PSHx: 12:09 ; Appendectomy; ll1 - Immunization history:: Flu vaccine is not up to date. - Social history:: Smoking status: Patient/guardian denies using tobacco, the patient reports quitting approximately 40 years ago. - Family history:: not pertinent. - Hospitalizations: : No recent hospitalization is reported. ROS: 12:35 Constitutional: Negative for fever, chills, and weight loss, Eyes: Negative for injury, rn pain, redness, and discharge, Cardiovascular: Negative for chest pain, palpitations, and edema, Respiratory: Negative for shortness of breath, cough, wheezing, and pleuritic chest pain, Abdomen/GI: Negative for abdominal pain, nausea, vomiting, diarrhea, and constipation, MS/Extremity: + left wrist and elbow pain Skin: + bruising to left hand/wrist. Neuro: Negative for headache, weakness, numbness, tingling, and seizure. Exam: 12:35 Constitutional: This is a well developed, well nourished patient who is awake, alert, rn and in no acute distress. Head/Face: Normocephalic, atraumatic. MS/ Extremity: Pulses equal, no cyanosis. Neurovascular intact. + mild pain left distal wrist, + mild swelling left hand with bruising, elbow shows minor irritation but splint smooth and no cyanosis. Vital Signs: 12:05 BP 157 / 83; Pulse 84; Resp 16; Temp 97.6; Pulse Ox 99% ; Weight 47.17 kg; Height 4 ft. ll1 11 in. (149.86 cm); Pain 5/10; 12:05 Body Mass Index 21.01 (47.17 kg, 149.86 cm) ll1 MDM: 12:26 Patient medically screened. rn 12:35 Differential diagnosis: splint pain, edema from fracture. Data reviewed: vital signs, rn nurses notes, and as a result, I will discharge patient. Counseling: I had a detailed discussion with the patient and/or guardian regarding: the historical points, exam findings, and any diagnostic results supporting the discharge/admit diagnosis, the need for outpatient follow up, to return to the emergency department if symptoms worsen or persist or if there are any questions or concerns that arise at home. Response to treatment: the patient's symptoms have markedly improved after treatment, and as a result, I will discharge patient. Special discussion: I discussed with the patient/guardian in detail that at this point there is no indication for admission to the hospital. It is understood, however, that if the symptoms persist or worsen the patient needs to return immediately for re-evaluation. ED course: Has ortho f/u in a couple of days with Dr. liu. Will switch splint to volar wrist splint given patient complaining of elbow pain and will help decrease weight to encourage elevation of arm.. 11/24 12:35 Order name: Splint - Volar Wrist Splint; Complete Time: 12:55 rn Administered Medications: No medications were administered Disposition: 11/24/20 12:40 Discharged to Home. Impression: Pain in left elbow, Edema, not elsewhere classified - Left arm, status post fracture and splinting. - Condition is Stable. - Discharge Instructions: Cast or Splint Care, Adult, Wrist Fracture Treated With Immobilization, Wrist Splint. - Medication Reconciliation Form, Thank You Letter, Antibiotic Education, Prescription Opioid Use form. - Follow up: Boston Liu MD; When: As needed; Reason: Recheck today's complaints, Re-evaluation by your physician. - Problem is an ongoing problem. - Symptoms have improved. Signatures: Jose Raul Medellin MD MD rn Naseem, Johanna RN RN vg1 Ben Garsia RN RN ll1 Corrections: (The following items were deleted from the chart) 13:01 12:40 11/24/2020 12:40 Discharged to Home. Impression: Pain in left elbow; Edema, not vg1 elsewhere classified - Left arm, status post fracture and splinting. Condition is Stable. Forms are Medication Reconciliation Form, Thank You Letter, Antibiotic Education, Prescription Opioid Use. Follow up: Dr. Boston Liu; When: As needed; Reason: Recheck today's complaints, Re-evaluation by your physician. Problem is an ongoing problem. Symptoms have improved. rn
[2020-11-24 13:07] VITALS: BP 157/83; TEMP 97.6; O2SAT 99
== END 2020-11-24 13:01 | disposition home or self-care (01) ==
LOC: ER 11:47
DX: S62.102D Fracture of unspecified carpal bone, left wrist, subsequent encounter for fracture with routine healing (principal)
CPT/HCPCS: 99283

== ENCOUNTER 2021-08-13 16:08 | Emergency (ER) | payer OTHER ==
[2021-08-13 19:40] LABS: SARS-COV-2 RT PCR POSITIVE (NEGATIVE)
--- NOTE | 2021-08-13 20:00 | ER ---
Nurse's Notes [facility] Name: Jaida Chance Age: 86 yrs Sex: Female : 1935 Arrival Date: 08/13/2021 Time: 16:13 Bed 10 Private MD: Diagnosis: Coronavirus infection, unspecified Presentation: 08/13 16:44 Chief complaint: Patient states: "I was going to go to fourth floor to visit my ss who is on hospice. I've been coughing off and on all week." Family member states, "she needs to be checked for COVID. her had covid and is on the fourth floor on hospice.". Coronavirus screen: Client presents with at least one sign or symptom that may indicate coronavirus-19. Standard/surgical mask placed on the client. Ebola Screen: Patient denies exposure to infectious person. Patient denies travel to an Ebola-affected area in the 21 days before illness onset. Onset of symptoms was August 06, 2021. 16:44 Method Of Arrival: Wheelchair ss 16:44 Acuity: EILEEN 4 ss 20:10 Risk Assessment: Do you want to hurt yourself or someone else? Patient reports no ss7 desire to harm self or others. Historical: - Allergies: 16:55 Codeine (Upset stomach); ss 16:55 Milk/dairy products; ss - PMHx: 16:55 Anxiety; Hypertension; ss - Immunization history:: Client reports having NOT received the Covid vaccine. - Social history:: Smoking status: Patient denies any tobacco usage or history of. Assessment: 20:08 General: Appears in no apparent distress. comfortable, Behavior is calm, cooperative. ss7 Pain: Denies pain. Neuro: No deficits noted. Cardiovascular: No deficits noted. Respiratory: No deficits noted. GI: No deficits noted. : No deficits noted. EENT: No deficits noted. Derm: No deficits noted. Musculoskeletal: No deficits noted. 20:09 Respiratory: Reports cough that is non-productive. ss7 20:09 Respiratory: Breath sounds are clear bilaterally. ss7 20:11 Reassessment: Pt ambulatory to check out with all personal belongings in NAD. . ss7 Vital Signs: 16:44 BP 106 / 52; Pulse 64; Resp 17; Temp 98.8(O); Pulse Ox 95% on R/A; Weight 45.36 kg; ss Height 4 ft. 11 in. (149.86 cm); Pain 0/10; 20:12 BP 140 / 63; Pulse 72; Resp 18; Pulse Ox 100% on R/A; ss7 16:44 Body Mass Index 20.20 (45.36 kg, 149.86 cm) ED Course: 16:13 Patient arrived in ED. ds1 16:54 Triage completed. ss 16:55 Arm band placed on left wrist. ss 17:06 Sita Velázquez FNP-C [facility]. kb 17:06 Gene Rouse MD is Attending Physician. kb 19:16 Gisele Farris, RN is Primary Nurse. sf1 Administered Medications: No medications were administered Outcome: 19:59 Discharge ordered by MD. kb 20:11 Discharged to home ambulatory. ss7 20:11 Condition: stable 20:11 Discharge instructions given to patient. 20:12 Patient left the ED. ss7 Signatures: Sita Velázquez FNP-C PLANISHING PRESS OPERATOR-Patricia Reich ds1 Cherelle Barrera, RN RN Gisele Farris, RN RN sf1 Demetrice Layne, LUCERO RN ss7
--- NOTE | 2021-08-13 20:00 | EDPHYS ---
Physician Documentation [facility] Name: Jaida Chance Age: 86 yrs Sex: Female : 1935 Arrival Date: 08/13/2021 Time: 16:13 Bed 10 Private MD: ED Physician Gene Rouse HPI: 08/13 21:13 This 86 yrs old Female presents to ER via Wheelchair with complaints of r/o COVID, kb Cough. 21:13 The patient or guardian reports cough, that is intermittent, described as mild, flu kb symptoms, myalgias. Onset: The symptoms/episode began/occurred 1 week(s) ago. Severity of symptoms: At their worst the symptoms were mild, in the emergency department the symptoms are unchanged. Modifying factors: The symptoms are alleviated by nothing, the symptoms are aggravated by nothing. Associated signs and symptoms: The patient has no apparent associated signs or symptoms. The patient has not experienced similar symptoms in the past. The patient has not recently seen a physician. 21:13 Pt reports she hasn't been feeling well for a week, has had a cough for a couple of kb days. has covid. Historical: - Allergies: 16:55 Codeine (Upset stomach); ss 16:55 Milk/dairy products; ss - PMHx: 16:55 Anxiety; Hypertension; ss - Immunization history:: Client reports having NOT received the Covid vaccine. - Social history:: Smoking status: Patient denies any tobacco usage or history of. ROS: 21:12 Abdomen/GI: Negative for abdominal pain, nausea, vomiting, diarrhea, and constipation. kb 21:12 Constitutional: Positive for malaise. 21:12 Respiratory: Positive for cough. 21:12 All other systems are negative. Exam: 21:12 Constitutional: This is a well developed, well nourished patient who is awake, alert, kb and in no acute distress. Head/Face: Normocephalic, atraumatic. ENT: Moist Mucous membranes Cardiovascular: Regular rate and rhythm with a normal S1 and S2. No gallops, murmurs, or rubs. No pulse deficits. Respiratory: Respirations even and unlabored. No increased work of breathing. Talking in full sentences Skin: Warm, dry with normal turgor. Normal color. MS/ Extremity: Pulses equal, no cyanosis. Neurovascular intact. Full, normal range of motion. Neuro: Awake and alert, GCS 15, oriented to person, place, time, and situation. Moves all extremities. Normal gait. Vital Signs: 16:44 BP 106 / 52; Pulse 64; Resp 17; Temp 98.8(O); Pulse Ox 95% on R/A; Weight 45.36 kg; ss Height 4 ft. 11 in. (149.86 cm); Pain 0/10; 20:12 BP 140 / 63; Pulse 72; Resp 18; Pulse Ox 100% on R/A; ss7 16:44 Body Mass Index 20.20 (45.36 kg, 149.86 cm) ss MDM: 19:22 Patient medically screened. kb 21:11 Data reviewed: vital signs, nurses notes. Data interpreted: Pulse oximetry: on room air kb is 100 %. Interpretation: normal. Counseling: I had a detailed discussion with the patient and/or guardian regarding: the historical points, exam findings, and any diagnostic results supporting the discharge/admit diagnosis, lab results, the need for outpatient follow up, a family practitioner, to return to the emergency department if symptoms worsen or persist or if there are any questions or concerns that arise at home. 08/13 16:56 Order name: COVID-19/FLU A+B (Document "Date of Onset" if Symptomatic); Complete Time: ss 19:46 Administered Medications: No medications were administered Disposition Summary: 08/13/21 19:59 Discharge Ordered Location: Home kb Condition: Stable kb Diagnosis - Coronavirus infection, unspecified kb Followup: kb - With: Emergency Department - When: As needed - Reason: Worsening of condition Followup: kb - With: Private Physician - When: 2 - 3 days - Reason: Recheck today's complaints, Continuance of care, Re-evaluation by your physician Discharge Instructions: - Discharge Summary Sheet kb - Viral Respiratory Infection, [id number] kb - COVID-19 kb Forms: - Medication Reconciliation Form kb - Thank You Letter kb - Antibiotic Education kb - Prescription Opioid Use kb Addendum: 08/15/2021 00:04 Co-signature as Attending Physician, Gene Rouse MD I agree with the assessment and k dr plan of care. Signatures: Dispatcher [employer] EDSita Cooper, SB-C PIPE FITTER SUPERVISOR-Ckb Gene Rouse MD MD kdr Cherelle Barrera, RN RN ss
[2021-08-13 21:09] VITALS: TEMP 98.8
[2021-08-13 21:10] VITALS: BP 140/63; O2SAT 100
== END 2021-08-13 20:12 | disposition home or self-care (01) ==
LOC: ER 16:08
DX: U07.1 COVID-19 (principal); I10 Essential (primary) hypertension; Z88.5 Allergy status to narcotic agent; Z91.011 Allergy to milk products
CPT/HCPCS: 0240U; 99281

== ENCOUNTER 2021-08-15 09:14 | Inpatient (IN) | payer OTHER ==
[2021-08-15] MEDS ORDERED: ONDANSETRON 4 MG/2 ML VIAL ONE (09:50)
[2021-08-15] MEDS ORDERED: NA CHLORIDE 0.9% 1,000 ML ONE (09:50)
[2021-08-15] MEDS ORDERED: ACETAMINOPHEN 500 MG TAB ONE (09:50)
[2021-08-15 09:52] LABS: Absolute Lymphocytes (CBC) 0.8 K/uL (0.7-4.9); Hematocrit 31.5 % (36.0-45.0); Lymphocytes % 25.9 % (15.3-44.8); MPV 8.9 fL (7.6-11.3); RBC Red Blood Cell Count 3.24 M/uL (3.86-4.86)
[2021-08-15 10:10] LABS: ALT/SGPT 17 U/L (12-78); AST/SGOT 37 U/L (15-37); Albumin 3.1 g/dL (3.4-5.0); Alkaline Phosphatase 78 U/L (45-117); BUN Blood Urea Nitrogen 22 mg/dL (7-18); Bicarbonate 23 mmol/L (21-32); Bilirubin Direct < 0.1 mg/dL (0-0.2); Bilirubin Total 0.3 mg/dL (0.2-1.0); Glucose Level 100 mg/dL (74-106); Lipase 412 U/L (73-393); Protein, Total 7.2 g/dL (6.4-8.2); Sodium Level 141 mmol/L (136-145)
--- NOTE | 2021-08-15 10:54 | ER ---
Nurse's Notes [facility] Name: Jaida Chance Age: 86 yrs Sex: Female : 1935 Arrival Date: 08/15/2021 Time: 09:15 Bed 13 Private MD: Diagnosis: Dehydration;Muscle weakness (generalized);Hypokalemia;Pneumonia due to SARS-associated coronavirus Presentation: 08/15 09:16 Chief complaint: EMS states: DX WITH COVID 2 DAYS AGO, FAMILY STATES PT ALTERED, NOT bp CARING FOR SELF. Coronavirus screen: Client reports previous positive COVID test result. Date of collection: August 13, 2021. Ebola Screen: No symptoms or risks identified at this time. Initial Sepsis Screen: Does the patient meet any 2 criteria? No. Patient's initial sepsis screen is negative. Does the patient have a suspected source of infection? No. Patient's initial sepsis screen is negative. Risk Assessment: Do you want to hurt yourself or someone else? Patient reports no desire to harm self or others. Onset of symptoms is unknown. Care prior to arrival: IV initiated. 20 GA, in the right antecubital area. 09:16 Method Of Arrival: EMS: [facility] bp 09:16 Acuity: EILEEN 3 bp Triage Assessment: 09:19 General: Appears distressed, uncomfortable, unkempt, Behavior is cooperative, bp appropriate for age, anxious. Pain: Denies pain. EENT: No deficits noted. Neuro: Level of Consciousness is awake, alert, obeys commands, Oriented to Appropriate for age. Cardiovascular: No deficits noted. Respiratory: No deficits noted. GI: No signs and/or symptoms were reported involving the gastrointestinal system. : No signs and/or symptoms were reported regarding the genitourinary system. Derm: No deficits noted. Musculoskeletal: No deficits noted. Historical: - Allergies: 09:19 Codeine (Upset stomach); bp 09:19 Milk/dairy products; bp - Home Meds: 09:19 escitalopram oxalate 20 mg Oral tab [Active]; ibandronate 150 mg Oral tab [Active]; bp lorazepam 0.5 mg Oral tab [Active]; propranolol 20 mg Oral tab [Active]; raloxifene 60 mg Oral tab [Active]; - PMHx: 09:19 Anxiety; Hypertension; bp - Immunization history:: Adult Immunizations up to date. - Social history:: Smoking status: Patient denies any tobacco usage or history of. - Family history:: not pertinent. - Hospitalizations: : No recent hospitalization is reported. Screenin:21 Abuse screen: Denies threats or abuse. Denies injuries from another. Nutritional bp screening: No deficits noted. Tuberculosis screening: No symptoms or risk factors identified. Fall Risk None identified. Assessment: 09:21 General: SEE TRIAGE NOTE. bp Vital Signs: 09:16 BP 142 / 61 LA (/reg); Pulse 76; Resp 22; Temp 99.0(O); Pulse Ox 98% ; Weight 47.63 kg; mb7 Height 5 ft. 2 in. (157.48 cm); 09:16 BP 160 / 70; Pulse 81; Resp 16; Temp 99; Pulse Ox 96% ; bp 12:14 BP 120 / 55; Pulse 81; Resp 19; Pulse Ox 97% ; jl7 09:16 Body Mass Index 19.20 (47.63 kg, 157.48 cm) [facility] ED Course: 09:15 Patient arrived in ED. [facility] er 09:16 Carmen Walker, RN is Primary Nurse. 6 09:16 Jose Raul Medellin MD is Attending Physician. rn 09:18 Triage completed. bp 09:19 Arm band placed on. bp 09:21 Patient has correct armband on for positive identification. Bed in low position. Call bp light in reach. Side rails up X2. 09:21 Maintain EMS IV. Dressing intact. Good blood return noted. Site clean \T\ dry. Gauge \T\ bp site: 20 GAUGE R AC. 09:37 EKG done, by ED staff, reviewed by Jose Raul Medellin MD. [facility] 09:55 XRAY Chest (1 view) Sent. 6 10:31 XRAY Chest (1 view) In Process Unspecified. EDMS 10:53 Martinez Medellin MD is Hospitalizing Provider. rn 21:36 Jamie Singh PA is [facility]. jr8 Administered Medications: 09:55 Drug: NS 0.9% 1000 ml Route: IV; Rate: 1000 ml; Site: right antecubital; [facility] er 09:55 Drug: Zofran (Ondansetron) 4 mg Route: IVP; Site: right antecubital; jh6 09:55 Drug: Tylenol 650 mg Route: PO; jh6 11:57 Drug: Potassium Chloride 10 mEq Route: IV; Rate: calculated rate; Site: right [facility] antecubital; Outcome: 10:54 Decision to Hospitalize by Provider. rn 21:46 Patient left the ED. sv1 Signatures: Dispatcher [employer] EDMS Jose Raul Medellin MD MD rn Roszak, Josh, PA PA jr8 Leal, Jahala, RN RN jl7 Erwin Nielsen RN RN bp Hastedt, Jennifer, RN RN jh6 Ariadna Turner [facility] Neftali Coppola RN RN sv1
--- NOTE | 2021-08-15 10:54 | EDPHYS ---
Physician Documentation [facility] Name: Jaida Chance Age: 86 yrs Sex: Female : 1935 Arrival Date: 08/15/2021 Time: 09:15 Bed 13 Private MD: ED Physician Jose Raul Medellin HPI: 08/15 09:48 This 86 yrs old Female presents to ER via EMS with complaints of generalized weakness, rn near syncope. 09:48 Patient reports generalized weakness, for 1 week, getting worse, cannot get out of bed rn or stand up without feeling like she is going to pass out. Diagnosed with COVID 2 days ago. Reports nausea and not able to eat or drink anything. No urinary symptoms. States cough improving and denies shortness of breath. Onset: The symptoms/episode began/occurred 1 week(s) ago. Severity of symptoms: At their worst the symptoms were moderate in the emergency department the symptoms are unchanged. The patient has not experienced similar symptoms in the past. The patient has been recently seen at the [facility] Emergency Department. Historical: - Allergies: 09:19 Codeine (Upset stomach); bp 09:19 Milk/dairy products; bp - Home Meds: 09:19 escitalopram oxalate 20 mg Oral tab [Active]; ibandronate 150 mg Oral tab [Active]; bp lorazepam 0.5 mg Oral tab [Active]; propranolol 20 mg Oral tab [Active]; raloxifene 60 mg Oral tab [Active]; - PMHx: 09:19 Anxiety; Hypertension; bp - Immunization history:: Adult Immunizations up to date. - Social history:: Smoking status: Patient denies any tobacco usage or history of. - Family history:: not pertinent. - Hospitalizations: : No recent hospitalization is reported. ROS: 09:48 Constitutional: Positive for fever and chills Eyes: Negative for injury, pain, redness, rn and discharge, ENT: Positive for congestion Cardiovascular: Negative for chest pain, palpitations, and edema, Respiratory: Negative for shortness of breath, cough, wheezing, and pleuritic chest pain, Abdomen/GI: Positive for nausea, negative for abdominal pain Back: Negative for injury and pain, : Negative for injury, bleeding, discharge, and swelling, MS/Extremity: Negative for injury and deformity, Skin: Negative for injury, rash, and discoloration, Neuro: Positive for generalized weakness Exam: 09:48 Constitutional: This is a well developed, well nourished patient who is awake, alert, rn appears tired and weak Head/Face: Normocephalic, atraumatic. Eyes: Periorbital areas with no swelling, redness, or edema. ENT: Dry mucous membranes Cardiovascular: Regular rate and rhythm. No pulse deficits. Respiratory: No increased work of breathing, no retractions or nasal flaring. Abdomen/GI: Soft, non-tender Skin: Warm, dry MS/ Extremity: Pulses equal, no cyanosis. Neuro: Awake and alert, GCS 15, 4/5 strength all extremities Vital Signs: 09:16 BP 142 / 61 LA (/reg); Pulse 76; Resp 22; Temp 99.0(O); Pulse Ox 98% ; Weight 47.63 kg; mb7 Height 5 ft. 2 in. (157.48 cm); 09:16 BP 160 / 70; Pulse 81; Resp 16; Temp 99; Pulse Ox 96% ; bp 12:14 BP 120 / 55; Pulse 81; Resp 19; Pulse Ox 97% ; jl7 09:16 Body Mass Index 19.20 (47.63 kg, 157.48 cm) [facility] MDM: 09:16 Patient medically screened. rn 10:52 Differential Diagnosis COVID, dehydration, renal failure, pneumonia. Data reviewed: rn vital signs, nurses notes, lab test result(s), radiologic studies, and as a result, I will admit patient. Counseling: I had a detailed discussion with the patient and/or guardian regarding: the historical points, exam findings, and any diagnostic results supporting the discharge/admit diagnosis, lab results, radiology results, the need for further work-up and treatment in the hospital. Response to treatment: the patient's symptoms have mildly improved after treatment, and as a result, I will admit patient. Admission orders: after a detailed discussion of the patient's condition and case, the admit orders are written by me. ED course: Pt with persistent weakness, unable to get out of bed, no real oxygen requirement, all likely 2/2 COVID, will obs to Dr. Medellin for IV hydration. . 08/15 09:21 Order name: CBC with Diff rn 08/15 09:21 Order name: Basic Metabolic Panel; Complete Time: 10:36 rn 08/15 09:21 Order name: Urine Microscopic Only rn 08/15 09:21 Order name: CRP; Complete Time: 10:36 rn 08/15 09:21 Order name: Lactate; Complete Time: 10:36 rn 08/15 09:21 Order name: Procalcitonin; Complete Time: 10:36 rn 08/15 09:21 Order name: XRAY Chest (1 view); Complete Time: 11:06 rn 08/15 09:22 Order name: CBC with Automated Diff; Complete Time: 10:36 EDNH 08/15 09:23 Order name: Hepatic Function; Complete Time: 10:36 rn 08/15 09:23 Order name: Lipase; Complete Time: 10:36 rn 08/15 16:05 Order name: Urine Dipstick-Ancillary EDNH 08/15 09:21 Order name: IV Start; Complete Time: 09:31 rn 08/15 09:21 Order name: EKG; Complete Time: 09:22 rn 08/15 09:21 Order name: EKG - Nurse/Tech; Complete Time: 09:31 rn 08/15 09:21 Order name: Cardiac monitoring; Complete Time: 09:31 rn 08/15 09:23 Order name: Labs collected and sent; Complete Time: 09:55 rn Administered Medications: 09:55 Drug: NS 0.9% 1000 ml Route: IV; Rate: 1000 ml; Site: right antecubital; [facility] 09:55 Drug: Zofran (Ondansetron) 4 mg Route: IVP; Site: right antecubital; [facility] 09:55 Drug: Tylenol 650 mg Route: PO; [facility] 11:57 Drug: Potassium Chloride 10 mEq Route: IV; Rate: calculated rate; Site: right [facility] antecubital; Disposition Summary: 08/15/21 10:54 Hospitalization Ordered Hospitalization Status: Observation rn Provider: Martinez Medellin rn Condition: Stable rn Problem: an ongoing problem rn Symptoms: are unchanged rn Bed/Room Type: Standard rn Location: Telemetry/MedSurg (observation)(08/15/21 19:57) cg Room Assignment: [facility](08/15/21 19:57) cg Diagnosis - Dehydration rn - Muscle weakness (generalized) rn - Hypokalemia rn - Pneumonia due to SARS-associated coronavirus rn Forms: - Medication Reconciliation Form rn - SBAR form rn Signatures: Dispatcher [employer] Jose Raul Dickens MD MD rn Garcia, Cindy RN Erwin Kebede RN Melissa Mcgee Jennifer RN RN [id number] Corrections: (The following items were deleted from the chart) 11:06 10:54 SARS-associated coronavirus as the cause of diseases classified elsewhere rn rn 13:39 10:54 Telemetry/MedSurg (observation) rn eb 13:39 10:54 rn eb 19:57 13:39 [facility] ER HOLD eb 19:57 13:39 ERHOLD- eb cg
--- NOTE | 2021-08-15 10:55 | RAD REPORT ---
EXAM DESCRIPTION: RAD - Chest Single View - 08/15/2021 10:31 am CLINICAL HISTORY: COVID+;Cough COMPARISON: Portable 08/11/2019 TECHNIQUE: AP portable chest image was obtained 08/15/2021 10:31 am . FINDINGS: Patchy airspace opacities are present in the mid and lower lung araujo. No dense consolida tions seen. This pattern has been seen in COVID-[address] imaging can be more specific and can be obtained if this would alter medical management. Overall lung parenchymal opacification is small. No failure or volume overload. Heart and vasculature are normal. No measurable pleural effusion and no pneumothorax. No acute bony abnormality seen. No acute aortic findings suspected. IMPRESSION: Mild patchy airspace opacification in the lower lung araujo. This would be consistent wi th a mild COVID-[address] imaging can be more sensitive for COVID-19 pneumonia findings. The exam can be performed if it wou ld alter medical management.
[2021-08-15] MEDS ORDERED: KCL 20 MEQ/100 mL IVPB 0 ML IV ONE (11:00)
[2021-08-15] MEDS ORDERED: POTASSIUM CL 10 MEQ in NA CHLORIDE 0.9% 100 ML IV ONE (12:00)
--- NOTE | 2021-08-15 12:02 | P.HP ---
Certification for Inpatient Patient admitted to: Inpatient With expected LOS: >2 Midnights Practitioner: I am a practitioner with admitting privileges, knowledge of patient current condition, hospital course, and medical plan of care. Services: Services provided to patient in accordance with Admission requirements found in Title 42 Section 412.3 of the Code of Federal Regulations Patient History Date of Service: 08/15/21 Reason for admission: COVID pneumonia, failure to thrive History of Present Illness: 86yo F, PMH: Hypertension, anxiety Presents to ED due to 1 week of progressively worsening generalized weakness, cough, nausea. She states she has not been feeling well and without any appetite. Denies pain. Her was recently admitted for Covid pneumonia, and recently placed on inpatient hospice. Since then she seems to have gotten worse. She recently tested positive for COVID-19 2 days ago. She lives alone and has kept herself in her room not wanting to get out of bed and not wanting to eat. She states now she is very weak and cannot do too much. Lab work notable for some mild anemia, hypokalemia, she appears dehydrated with generalized weakness on exam. Chest x-ray consistent with a mild COVID pneumonia Allergies codeine Allergy (Unverified 10/12/16 22:57) Unknown - Past Medical/Surgical History -: Hypertension -: Anxiety Past Surgical History: Unable to obtain - Family History Family History: Reviewed- Non-Contributory - Social History Smoking Status: Never smoker Place of Residence: Home Review of Systems 10-point ROS is otherwise unremarkable Physical Examination - Physical Exam General: Alert, Other (Appears very weak/tired) HEENT: Sclerae nonicteric Neck: Supple Respiratory: Diminished (At bases bilaterally) Cardiovascular: No edema, Regular rate/rhythm Gastrointestinal: Soft and benign, Non-distended, No tenderness Musculoskeletal: No tenderness Integumentary: No rashes, No significant lesion Neurological: Normal speech, Cranial nerves 3-12 intact, Normal affect, Other (Hard of hearing) - Studies Laboratory Data (last 24 hrs) 08/15/21 09:37: Sodium 141, Potassium 3.0 L, BUN 22 H, Creatinine 0.99, Glucose 100, Total Bilirubin 0.3, AST 37, ALT 17, Alkaline Phosphatase 78, Lipase 412 H 08/15/21 09:37: WBC 3.10 L, Hgb 10.4 L, Hct 31.5 L, Plt Count 130 L Assessment and Plan - Advance Directives Does patient have a Living Will: No Does patient have a Durable POA for Healthcare: No Physician Review Additional Text: Problem list COVID-19 pneumonia Failure to thrive, debility Nausea Hypertension Anxiety P.o. steroids IV fluids Encourage p.o. intake Physical therapy consulted Patient appears dry, has not eaten much in several days Difficult to obtain accurate history from patient, very hard of hearing Her is currently in inpatient hospice, likely contributing to some of this as well. Recent COVID-19 pneumonia, continue isolation protocol No answer from family to give further information, will try again VTE: Xarelto prophylaxis Code: Full, per patient Dispo: Anticipate DC home in 2 days Time Spent Managing Pts Care (In Minutes): 60
[2021-08-15 13:20] VITALS: BMI 23.8
[2021-08-15 16:04] LABS: Urine Blood 2+ (Negative); Urine Glucose Negative (Negative); Urine Protein 1+ (Negative); Urine pH 5.5 (5.0-7.0)
[2021-08-15] MEDS ORDERED: ONDANSETRON 4 MG/2 ML VIAL IV PRN (18:29)
[2021-08-15] MEDS: D5.45NS W/KCL 20MEQ 1,000 ML IV SCH ×2 (18:29→22:26)
[2021-08-15] MEDS ORDERED: NA CHLORIDE 0.9% 500 ML ONE (20:34)
[2021-08-15] MEDS ORDERED: dexAMETHasone 4 MG TAB ONE (20:34)
[2021-08-15] MEDS ORDERED: D5 0.45 NS 1,000 ML IV ONE (20:35)
[2021-08-15] MEDS: dexAMETHasone 4 MG TAB PO SCH (20:54)
[2021-08-15] MEDS: RIVAROXABAN 15 MG TABLET PO SCH (22:26)
[2021-08-16 04:20] LABS: Absolute Lymphocytes (CBC) 0.6 K/uL (0.7-4.9); Hematocrit 28.3 % (36.0-45.0); MPV 8.8 fL (7.6-11.3); RBC Red Blood Cell Count 2.92 M/uL (3.86-4.86)
[2021-08-16 04:54] LABS: Albumin 2.5 g/dL (3.4-5.0); Bilirubin Total 0.3 mg/dL (0.2-1.0); C-Reactive Protein 49.6 mg/L (<3.00); Ferritin 2974.8 ng/mL (8-388); Magnesium 1.6 mg/dL (1.8-2.4); Potassium 3.3 mmol/L (3.5-5.1); Protein, Total 6.1 g/dL (6.4-8.2)
--- NOTE | 2021-08-16 06:24 | P.PN ---
Date of Service: 08/16/21 Subjective: No acute events overnight, patient reports feeling better today, with more energy But still feels very weak, feels like she has an appetite this morning No new symptoms/complaints Continues with mild cough, intermittent shortness of breath ROS: 10 point ROS as noted above, otherwise negative Physical exam GEN: Alert, oriented, appears fatigued HEENT: Normal conjunctiva, sclera anicteric CV: Regular rate and rhythm, no edema Pulm: Diminished bilaterally, non-labored respirations on room air ABD: Soft, nontender, nondistended Integumentary: No rashes Neuro: Moves all extremities, depressed, tearful Problem list COVID-19 pneumonia Failure to thrive, debility Nausea Hypertension Anxiety Inflammatory markers slightly improved Patient improving Continue p.o. steroids, cut back on IV fluids since patient takes more p.o. PT consulted Her is currently in inpatient hospice, patient is very tearful COVID-19 pneumonia, continue isolation protocol VTE: Xarelto prophylaxis Code: Full Dispo: Anticipate DC home in 24 hours pending further improvement Family updated yesterday Time Spent Managing Pts Care (In Minutes): 35
[2021-08-16] MEDS: VITAMIN D 1000 UNIT TAB PO SCH (08:07)
[2021-08-16] MEDS: dexAMETHasone 4 MG TAB PO SCH ×2 (08:07→20:09)
[2021-08-16] MEDS: D5.45NS W/KCL 20MEQ 1,000 ML IV SCH ×2 (08:08→14:45)
[2021-08-16] MEDS ORDERED: POTASSIUM CL SA 10 MEQ TAB PO ONE ×2 (09:00→21:00)
[2021-08-16] MEDS ORDERED: MAGNESIUM SULFATE 1 gm IVPB 1 GM/100 ML BAG IV ONE (09:00)
[2021-08-16] MEDS: RIVAROXABAN 15 MG TABLET PO SCH (16:57)
[2021-08-16] MEDS: ENSURE ENLIVE 237 ML CAN PO SCH (20:10)
[2021-08-16 22:33] VITALS: O2SAT 97
[2021-08-17 06:29] LABS: Absolute Lymphocytes (CBC) 0.7 K/uL (0.7-4.9); Hematocrit 28.8 % (36.0-45.0); Lymphocytes % 23.2 % (15.3-44.8); MPV 9.5 fL (7.6-11.3); RBC Red Blood Cell Count 2.83 M/uL (3.86-4.86)
--- NOTE | 2021-08-17 06:29 | P.PN ---
Date of Service: 08/17/21 Subjective: ROS: 10 point ROS as noted above, otherwise negative Physical exam GEN: Alert, oriented, appears fatigued HEENT: Normal conjunctiva, sclera anicteric CV: Regular rate and rhythm, no edema Pulm: Diminished bilaterally, non-labored respirations on room air ABD: Soft, nontender, nondistended Integumentary: No rashes Neuro: Moves all extremities, depressed, tearful Problem list COVID-19 pneumonia Failure to thrive, debility Nausea Hypertension Anxiety Inflammatory markers slightly improved Patient improving Continue p.o. steroids, cut back on IV fluids since patient takes more p.o. PT consulted Her is currently in inpatient hospice, patient is very tearful COVID-19 pneumonia, continue isolation protocol VTE: Xarelto prophylaxis Code: Full Dispo: Anticipate DC home today Time Spent Managing Pts Care (In Minutes): 35
[2021-08-17 06:58] LABS: C-Reactive Protein 22.7 mg/L (<3.00); Ferritin 2974.1 ng/mL (8-388); Potassium 4.2 mmol/L (3.5-5.1)
--- NOTE | 2021-08-17 06:59 | RAD REPORT ---
EXAM DESCRIPTION: RAD - Chest Single View - 08/17/2021 5:29 am CLINICAL HISTORY: cough, covid COMPARISON: Portable August 15 TECHNIQUE: AP portable chest image was obtained 08/17/2021 5:29 am . FINDINGS: Patchy airspace opacification persists in the lung araujo. Pattern is not significantly di fferent from the examination 2 days earlier. No failure or volume overload identified. Heart and vasculature are normal. No measurable pleural effusion and no pneumothorax. No acute bony abnormality seen. No acute aortic findings suspected. IMPRESSION: Patchy bilateral pneumonia pattern showing no significant change from August 15.
[2021-08-17] MEDS: ENSURE ENLIVE 237 ML CAN PO SCH ×2 (09:00→09:57)
[2021-08-17] MEDS: VITAMIN D 1000 UNIT TAB PO SCH (09:56)
[2021-08-17] MEDS: dexAMETHasone 4 MG TAB PO SCH (09:56)
[2021-08-17] MEDS: D5.45NS W/KCL 20MEQ 1,000 ML IV SCH (10:00)
--- NOTE | 2021-08-17 17:50 | P.DS ---
Admission Date: 08/15/21 Discharge Date: 08/17/21 Disposition: ROUTINE DISCHARGE Discharge Condition: FAIR Reason for Admission: COVID pneumonia, failure to thrive Procedures: Problem list mild COVID-19 pneumonia, without hypoxemia Failure to thrive, debility Nausea Hypertension Anxiety Brief History of Present Illness: 86yo F, PMH: Hypertension, anxiety Presents to ED due to 1 week of progressively worsening generalized weakness, cough, nausea. She states she has not been feeling well and without any appetite. Denies pain. Her was recently admitted for Covid pneumonia, and recently placed on inpatient hospice. Since then she seems to have gotten worse. She recently tested positive for COVID-19 2 days ago. She lives alone and has kept herself in her room not wanting to get out of bed and not wanting to eat. She states now she is very weak and cannot do too much. Lab work notable for some mild anemia, hypokalemia, she appears dehydrated with generalized weakness on exam. Chest x-ray consistent with a mild COVID pneumonia Hospital Course: Found to have mild COVID-19 pneumonia and dehydration. Treated with steroids and IV fluids. She had improvement of her symptoms and improvement of her inflammatory markers. Her chest x-ray remained stable and she did not require oxygen supplementation. Discharged home with steroid course. recommend 81mg aspirin daily for 1 month. Vital Signs/Physical Exam: Temp Pulse Resp BP Pulse Ox 97.1 F 77 16 138/68 96 08/17/21 11:59 08/17/21 11:59 08/17/21 11:59 08/17/21 11:59 08/17/21 11:59 Physical exam GEN: Alert, oriented, NAD HEENT: Normal conjunctiva, sclera anicteric CV: Regular rate and rhythm, no edema Pulm: Diminished bilaterally, non-labored respirations on room air ABD: Soft, nontender, nondistended Integumentary: No rashes Neuro: Moves all extremities, depressed, tearful, hard of hearing Laboratory Data at Discharge: WBC 3.00 K/uL (4.3-10.9) L D 08/17/21 05:56 Hgb 10.2 g/dL (12.0-15.0) L 08/17/21 05:56 Hct 28.8 % (36.0-45.0) L 08/17/21 05:56 Plt Count 134 K/uL (152-406) L 08/17/21 05:56 Sodium 141 mmol/L (136-145) 08/17/21 05:56 Potassium 4.2 mmol/L (3.5-5.1) 08/17/21 05:56 BUN 8 mg/dL (7-18) 08/17/21 05:56 Creatinine 0.69 mg/dL (0.55-1.3) 08/17/21 05:56 Glucose 162 mg/dL (74-106) H 08/17/21 05:56 Magnesium 2.0 mg/dL (1.8-2.4) 08/17/21 05:56 Total Bilirubin 0.3 mg/dL (0.2-1.0) 08/16/21 04:09 AST 34 U/L (15-37) 08/16/21 04:09 ALT 15 U/L (12-78) 08/16/21 04:09 Alkaline Phosphatase 70 U/L (45-117) 08/16/21 04:09 Lipase 412 U/L (73-393) H 08/15/21 09:37 Home Medications: Escitalopram [Lexapro*] 20 mg PO DAILY 08/15/21 LORazepam [Lorazepam] 0.5 mg PO DAILY PRN 08/15/21 Propranolol HCl 20 mg PO BID 08/15/21 Raloxifene HCl 60 mg PO DAILY 08/15/21 Ibandronate Sodium 1 tab PO SEECOM 08/16/21 dexAMETHasone [Dexamethasone] 2 mg PO SEECOM 10 Days #15 tablet 08/17/21 New Medications: dexAMETHasone [Dexamethasone] 2 mg PO SEECOM 10 Days #15 tablet Physician Discharge Instructions: Found to have mild COVID-19 pneumonia and dehydration. Treated with steroids and IV fluids. She had improvement of her symptoms and improvement of her inflammatory markers. Her chest x-ray remained stable and she did not require oxygen supplementation. Discharged home with steroid course. recommend 81mg aspirin daily for 1 month. Diet: Regular Activity: Fall precautions Followup: NONE,NONE [Primary Care Provider] - 1-2 Weeks (Call to schedule an appointment) Time spent managing pt's care (in minutes): 45
[2021-08-17 18:10] VITALS: BP 135/67; TEMP 98
== END 2021-08-17 16:50 | disposition home health service (06) | DRG 177 ==
LOC: ER 09:14 → ERHOLD 11:31 → 4TH 21:38
PROVIDERS: ADMIT Hospitalist; ATTEND Hospitalist
DX: U07.1 COVID-19 (principal); J12.82 Pneumonia due to coronavirus disease 2019; R62.7 Adult failure to thrive; Z68.23 Body mass index [BMI] 23.0-23.9, adult; R53.81 Other malaise; I10 Essential (primary) hypertension; F41.9 Anxiety disorder, unspecified; E86.0 Dehydration
CPT/HCPCS: 0240U; 36415; 71045; 80048; 80053; 80076; 81003; 82728; 82947; 83605; 83690; 83735; 84132; 84145; 85025; 86140; 93005; 94010; 94760; 96374; 96375; 97110; 97161; 97530; 99281; 99284; J2405; J3475; J3480; J7030; J7040; J7799; J8540

== ENCOUNTER 2021-08-30 21:32 | Emergency (ER) | payer OTHER ==
[2021-08-31 01:27] LABS: SARS-COV-2 RT PCR NEGATIVE (NEGATIVE)
--- NOTE | 2021-08-31 03:09 | ER ---
Nurse's Notes [facility] Name: Jaida Chance Age: 86 yrs Sex: Female : 1935 Arrival Date: 08/30/2021 Time: 21:36 Bed 4 Private MD: Diagnosis: Cough Presentation: 08/30 21:40 Chief complaint: Patient states: I'm tired of coughing, I have been coughing for over a vc1 month. EMS states: She has had a cough for a month and has been taking Prednisone but it's not getting any better. Coronavirus screen: Vaccine status: Patient reports being unvaccinated. cough unrelated to allergies, Client presents with at least one sign or symptom that may indicate coronavirus-19. Standard/surgical mask placed on the client. Provider contacted for isolation considerations. Ebola Screen: No symptoms or risks identified at this time. Initial Sepsis Screen: Does the patient meet any 2 criteria? No. Patient's initial sepsis screen is negative. Does the patient have a suspected source of infection? No. Patient's initial sepsis screen is negative. Risk Assessment: Do you want to hurt yourself or someone else? Patient reports no desire to harm self or others. Onset of symptoms is unknown. 21:40 Method Of Arrival: EMS: [facility] vc1 21:40 Acuity: EILEEN 4 vc1 Triage Assessment: 21:47 General: Appears in no apparent distress. comfortable, Behavior is cooperative, vc1 appropriate for age. Pain: Denies pain. Respiratory: Reports cough that is productive, persistent since a month. Historical: - Allergies: 21:46 Codeine (Upset stomach); vc1 21:46 Milk/dairy products; vc1 - Home Meds: 21:46 escitalopram oxalate 20 mg Oral tab [Active]; raloxifene 60 mg Oral tab [Active]; vc1 propranolol 20 mg Oral tab [Active]; lorazepam 0.5 mg Oral tab [Active]; ibandronate 150 mg Oral tab [Active]; - PMHx: 21:46 Hypertension; Anxiety; Extremely Hard of Hearing; vc1 - Immunization history:: Adult Immunizations up to date, Client reports having NOT received the Covid vaccine. - Social history:: Smoking status: Patient denies any tobacco usage or history of. Screenin/07 00:15 Abuse screen: Denies threats or abuse. Denies injuries from another. Nutritional as6 screening: No deficits noted. Tuberculosis screening: No symptoms or risk factors identified. Fall Risk None identified. Assessment: 00:12 General: Appears in no apparent distress. Behavior is calm, cooperative. Pain: Denies as6 pain. Neuro: Level of Consciousness is awake, alert, obeys commands, Oriented to person, place, time, situation. Respiratory: Reports cough that is Airway is patent Trachea midline Respiratory effort is even, unlabored, Respiratory pattern is regular, symmetrical, Breath sounds are clear bilaterally. EENT: Reports nasal congestion. 01:50 Reassessment: Patient appears in no apparent distress at this time. as6 Vital Signs: 08/30 21:40 BP 127 / 51; Pulse 74; Resp 18; Temp 99.1(TE); Pulse Ox 97% on R/A; Weight 44 kg; vc1 Height 4 ft. 11 in. (149.86 cm); Pain 0/10; 08/31 00:14 BP 94 / 76; Pulse 75; Resp 18 S; Pulse Ox 96% on R/A; as6 01:48 BP 127 / 58; Pulse 68; Resp 18 S; Pulse Ox 97% on R/A; as6 08/30 21:40 Body Mass Index 19.59 (44.00 kg, 149.86 cm) vc1 ED Course: 08/30 21:36 Patient arrived in ED. vc1 21:46 Triage completed. vc1 21:48 Arm band placed on right wrist. vc1 08/31 00:06 Faustino Hernandez NP is PHCP. pm1 00:06 Donta Bonilla MD is Attending Physician. pm1 00:08 Henrry Maurice, LUCERO is Primary Nurse. as6 00:15 Bed in low position. Call light in reach. Side rails up X2. Pulse ox on. NIBP on. Warm as6 blanket given. 00:47 COVID-19/FLU A+B (Document "Date of Onset" if Symptomatic) Sent. as6 01:25 Chest Pa And Lat (2 Views) XRAY In Process Unspecified. EDMS 03:17 No provider procedures requiring assistance completed. Patient did not have IV access as6 during this emergency room visit. Administered Medications: No medications were administered Outcome: 03:08 Discharge ordered by . pm1 03:17 Discharged to home ambulatory. as6 03:17 Condition: stable 03:17 Discharge instructions given to patient, Instructed on discharge instructions, follow up and referral plans. medication usage, Demonstrated understanding of instructions, follow-up care, medications, Prescriptions given X 2. 03:17 Patient left the ED. as6 Signatures: Dispatcher [employer] EDMS Faustino Hernandez NP QUILL REAMER pm1 Henrry Maurice RN RN as6 Terri Jarquin RN RN vc1
--- NOTE | 2021-08-31 03:09 | EDPHYS ---
Physician Documentation [facility] Name: Jaida Chance Age: 86 yrs Sex: Female : 1935 Arrival Date: 08/30/2021 Time: 21:36 Bed 4 Private MD: ED Physician Donta Bonilla HPI: 08/31 00:39 This 86 yrs old Female presents to ER via EMS with complaints of Cough. pm1 00:39 The patient or guardian reports cough, with productive sputum. Onset: The pm1 symptoms/episode began/occurred 1 month(s) ago. Severity of symptoms: in the emergency department the symptoms are unchanged. Modifying factors: The symptoms are alleviated by nothing, the symptoms are aggravated by nothing. Associated signs and symptoms: Pertinent negatives: chest pain, fever, sore throat, shortness of breath. The patient has not recently seen a physician. Historical: - Allergies: 08/30 21:46 Codeine (Upset stomach); vc1 21:46 Milk/dairy products; vc1 - Home Meds: 21:46 escitalopram oxalate 20 mg Oral tab [Active]; raloxifene 60 mg Oral tab [Active]; vc1 propranolol 20 mg Oral tab [Active]; lorazepam 0.5 mg Oral tab [Active]; ibandronate 150 mg Oral tab [Active]; - PMHx: 21:46 Hypertension; Anxiety; Extremely Hard of Hearing; vc1 - Immunization history:: Adult Immunizations up to date, Client reports having NOT received the Covid vaccine. - Social history:: Smoking status: Patient denies any tobacco usage or history of. ROS: 08/31 00:39 Constitutional: Negative for fever, chills, and weight loss, Cardiovascular: Negative pm1 for chest pain, palpitations, and edema. Abdomen/GI: Negative for abdominal pain, nausea, vomiting, diarrhea, and constipation, Back: Negative for injury and pain, MS/Extremity: Negative for injury and deformity, Skin: Negative for injury, rash, and discoloration, Neuro: Negative for headache, weakness, numbness, tingling, and seizure. Respiratory: Positive for cough, "sounds productive", Negative for shortness of breath. All other systems are negative. Exam: 00:39 Constitutional: This is a well developed, well nourished patient who is awake, alert, pm1 and in no acute distress. Head/Face: Normocephalic, atraumatic. 00:39 Back: No spinal tenderness. No costovertebral tenderness. Full range of motion. Skin: Warm, dry with normal turgor. Normal color with no rashes, no lesions, and no evidence of cellulitis. MS/ Extremity: Pulses equal, no cyanosis. Neurovascular intact. Full, normal range of motion. 00:39 Cardiovascular: Exam negative for acute changes, Rate: normal, Rhythm: regular, Pulses: no pulse deficits are appreciated, Heart sounds: normal, normal S1and S2. 00:39 Respiratory: Exam negative for acute changes, respiratory distress, shortness of breath, Breath sounds: bronchial sounds, that are mild, are heard diffusely. 00:39 Abdomen/GI: Inspection: abdomen appears normal, Palpation: abdomen is soft and non-tender, in all quadrants. 00:39 Neuro: Exam negative for acute changes, Orientation: is normal, Mentation: is normal, Motor: is normal, moves all fours. Vital Signs: 08/30 21:40 BP 127 / 51; Pulse 74; Resp 18; Temp 99.1(TE); Pulse Ox 97% on R/A; Weight 44 kg; vc1 Height 4 ft. 11 in. (149.86 cm); Pain 0/10; 08/31 00:14 BP 94 / 76; Pulse 75; Resp 18 S; Pulse Ox 96% on R/A; as6 01:48 BP 127 / 58; Pulse 68; Resp 18 S; Pulse Ox 97% on R/A; as6 08/30 21:40 Body Mass Index 19.59 (44.00 kg, 149.86 cm) vc1 MDM: 00:39 Patient medically screened. pm1 03:07 Data reviewed: vital signs. Data interpreted: Pulse oximetry: on room air is 97 %. pm1 Interpretation: normal. Counseling: I had a detailed discussion with the patient and/or guardian regarding: the historical points, exam findings, and any diagnostic results supporting the discharge/admit diagnosis, radiology results, the need for outpatient follow up, to return to the emergency department if symptoms worsen or persist or if there are any questions or concerns that arise at home. 08/31 00:40 Order name: COVID-19/FLU A+B (Document "Date of Onset" if Symptomatic); Complete Time: pm1 01:42 08/31 00:40 Order name: Chest Pa And Lat (2 Views) XRAY pm1 Administered Medications: No medications were administered Disposition: 03:24 Co-signature as Attending Physician, Donta Bonilla MD. [email or web address] Disposition Summary: 08/31/21 03:08 Discharge Ordered Location: Home pm1 Problem: new pm1 Symptoms: have improved pm1 Condition: Stable pm1 Diagnosis - Cough pm1 Followup: pm1 - With: Emergency Department - When: As needed - Reason: Worsening of condition Followup: pm1 - With: Private Physician - When: 2 - 3 days - Reason: Recheck today's complaints, Continuance of care, Re-evaluation by your physician Discharge Instructions: - Discharge Summary Sheet pm1 - Cough, Adult pm1 Forms: - Medication Reconciliation Form pm1 - Thank You Letter pm1 - Antibiotic Education pm1 - Prescription Opioid Use pm1 Prescriptions: - Bromfed DM 2-30-10 mg/5 mL Oral syrup - take 10 milliliter by ORAL route every 4 hours As needed; 240 milliliter; pm1 Refills: 0, Product Selection Permitted - azithromycin 250 mg Oral tablet - take 2 tablet by ORAL route once daily for 1 day then 1 tablet (250 mg) by oral pm1 route once daily for 4 days; 6 tablet; Refills: 0, Product Selection Permitted Signatures: Dispatcher [employer] EDFaustino Ag, SULFIDE HEAD OPERATOR SULFIDE HEAD OPERATOR pm1 Donta Bonilla MD MD [id number] Terri Jarquin RN RN 1
[2021-08-31 03:50] VITALS: TEMP 99.1
[2021-08-31 03:52] VITALS: BP 127/58; O2SAT 97
--- NOTE | 2021-08-31 12:53 | RAD REPORT ---
EXAM DESCRIPTION: RAD - Chest Pa And Lat (2 Views) - 08/31/2021 1:25 am CLINICAL HISTORY: The patient is 86 years old and is Female; COUGH TECHNIQUE: Frontal and lateral views of the chest. COMPARISON: No relevant prior studies available. FINDINGS: LUNGS: The lungs are hyperinflated with coarsened interstitial markings. Subtle opacity within the left lower lobe is present. PLEURAL SPACE: Unremarkable. No pneumothorax. HEART: Unremarkable. No cardiomegaly. MEDIASTINUM: Unremarkable. BONES/JOINTS: Minimal degenerative change of the bones is present. UPPER ABDOMEN: Unremarkable as visualized. IMPRESSION: Chronic lung changes with suggestion of left lower lobe atelectasis/developing infiltrat e. Electronically signed by: Chrissy Merritt MD 08/31/2021 2:17 AM TRAP SETTER Due to temporary technical issues with the PACS/Fluency reporting system, reports are being signed by the in house radiologist without review as a courtesy to ensure prompt reporting. The interpreting r adiologist is fully responsible for the content of the report.
== END 2021-08-31 03:17 | disposition home or self-care (01) ==
LOC: ER 21:32
DX: R05.9 Cough, unspecified (principal); I10 Essential (primary) hypertension; F41.9 Anxiety disorder, unspecified; Z88.5 Allergy status to narcotic agent; Z91.011 Allergy to milk products; Z20.822 Contact with and (suspected) exposure to COVID-19
CPT/HCPCS: 0240U; 71046; 99284

== ENCOUNTER 2024-06-07 20:01 | Inpatient (IN) | payer OTHER ==
[2024-06-07] MEDS ORDERED: ONDANSETRON 4 MG/2 ML VIAL ONE (20:52)
[2024-06-07] MEDS ORDERED: FENTANYL CITR 100 MCG/2 ML ONE (20:53)
[2024-06-07 21:11] LABS: Absolute Basophils 0.2 K/uL (0-0.5); Absolute Eosinophils 0.1 K/uL (0-0.5); Absolute Lymphocytes (CBC) 1.1 K/uL (0.7-4.9); Absolute Monocytes 0.8 K/uL (0.1-1.3); Absolute Neutrophil 12.3 K/uL (1.8-8.0); Basophils % 1.4 % (0-1.3); Eosinophils % 0.4 % (0-4.4); Hematocrit 30.5 % (36.0-45.0); Hemoglobin 10.1 g/dL (12.0-15.0); Lymphocytes % 7.6 % (15.3-44.8); MCH 33.6 pg (27.0-35.0); MCHC 32.9 g/dL (32.0-36.0); MPV 8.7 fL (7.6-11.3); Monocytes % 5.3 % (3.3-12.3); Neutrophils % 85.3 % (41.7-73.7); Nucleated Red Blood Cells % 0.1 % (0-0); Platelets 242 thou/uL (152-406); RBC Red Blood Cell Count 2.99 M/uL (3.86-4.86); Red Cell Distribution Width 16.7 % (12.1-15.2)
--- NOTE | 2024-06-07 21:21 | RAD REPORT ---
EXAMINATION: XR PELVIS CLINICAL INDICATION: Right hip pain TECHNIQUE: AP Pelvis examination was obtained. COMPARISON: No prior exam. FINDINGS: Intertrochanteric fracture of the proximal right femur seen with mild varus angulation. No dislocation is seen.
--- NOTE | 2024-06-07 21:21 | RAD REPORT ---
EXAMINATION: ONE VIEW CHEST XR CLINICAL INDICATION: fall TECHNIQUE: Frontal chest projection is submitted. Examination is limited by patient positioning and t echnique. COMPARISON: No prior exam. FINDINGS: The lungs are well inflated and clear. The heart is upper limit of normal in size. No displaced fract ures identified. IMPRESSION: No acute intrathoracic abnormalities.
[2024-06-07 21:22] LABS: PT Prothrombin Time 11.6 SECONDS (9.4-12.5); Protime INR 1.04
--- NOTE | 2024-06-07 21:22 | RAD REPORT ---
EXAMINATION: XR RIGHT FEMUR CLINICAL INDICATION: . Right femur pain RIGHT TECHNIQUE: Multiple views of the right femur were obtained. COMPARISON: No prior exam. FINDINGS: Intertrochanteric fracture of the proximal right femur is seen with mild varus angulation. No dislocation.
[2024-06-07 21:33] LABS: Albumin 3.5 g/dL (3.4-5.0); Albumin/Globulin Ratio 0.9 (1.1-1.8); Anion Gap 11.1 mEq/L (5.0-15.0); Bilirubin Direct 0.3 mg/dL (0-0.2); Bilirubin Indirect, Calculated 0.7 mg/dL (0.2-0.8); Globulin 3.8 g/dL (2.3-3.5); Magnesium 1.8 mg/dL (1.6-2.4); Potassium 4.1 mEq/L (3.5-5.1); Protein, Total 7.3 g/dL (6.4-8.2); Troponin High Sensitivity 10.6 pg/mL (<58.9)
--- NOTE | 2024-06-07 21:54 | RAD REPORT ---
EXAM: CT brain without contrast HISTORY: fall , head injury COMPARISON: None TECHNIQUE: Multiple contiguous axial images were obtained and a CT of the brain without contrast. Sag ittal and coronal reformats were performed. One or more of the following dose reduction techniques were used: Automated exposure control, adjust ment of the mA and/or kV according to patient size, and/or iterative reconstruction. FINDINGS: No evidence of hydrocephalus, intracranial hemorrhage, or extra-axial fluid collection. Moderate brain atrophy with moderate periventricular and deep white matter chronic microvascular isc hemic changes present. No evidence of midline shift or areas of brain edema. The calvarium is intact. The visualized paranasal sinuses and mastoid air cells are essentially clear . IMPRESSION: No evidence of acute intracranial abnormality. EXAM: CT of the cervical spine without contrast HISTORY: Neck pain, injury fall , head injury TECHNIQUE: Multiple contiguous axial images were obtained in a CT of the cervical spine without contr ast. Sagittal and coronal reformats were performed. FINDINGS: The vertebral bodies demonstrate normal height and alignment. No evidence of acute fracture or subluxation.. Moderate multilevel degenerative cervical changes. No prevertebral soft tissue swelling is seen. The posterior facets are well aligned. Normal alignment of the skull base with the cervical spine is seen. Moderate bilateral carotid atherosclerosis, greater on the left. The lung apices are unremarkable. IMPRESSION: No evidence of acute osseous abnormality of the cervical spine.
--- NOTE | 2024-06-07 21:57 | RAD REPORT ---
EXAM: CT CHEST, ABDOMEN AND PELVIS WITHOUT CONTRAST CLINICAL INDICATION: fall , back pain TECHNIQUE: CT chest, abdomen and pelvis was performed without contrast, as per department protocol. A xial, sagittal and coronal reconstructions were obtained. One or more of the following dose reduction techniques were used: Automated exposure control, adjustment of the mA and/or kV according to patient size, and/or iterative reconstruction. Unless otherwise specified, incidental findings do not require dedicated imaging follow-up. Examination is limited by the lack of intravenous contrast material. COMPARISON: No prior exam. FINDINGS: LUNGS: Small nodule is seen in the superior segment right lower lobe abutting the fissure measuring 7 mm. No focal infiltrate. PLEURA: No pleural effusion. No pneumothorax. MEDIASTINUM AND LYMPH NODES: No mediastinal mass or fluid collection. Normal size mediastinal, hilar, and axillary lymph nodes. OSSEOUS STRUCTURES AND CHEST WALL: Intact. Small hiatal hernia. LIVER: Normal in size and contour. No focal lesion or biliary dilatation. Cholecystectomy clips. PANCREAS: No mass, ductal dilation, or asia-pancreatic fluid. SPLEEN: Normal size. No focal lesion. ADRENALS: Normal; no mass. KIDNEYS: Normal size and contour. No hydronephrosis. URINARY BLADDER: Normal contour. GASTROINTESTINAL TRACT: No bowel obstruction, free air, significant free fluid or abscess. APPENDIX: Normal appendix. LYMPH NODES: No lymphadenopathy. MUSCULOSKELETAL: Intertrochanteric fracture proximal right femur with varus angulation. OTHER: Grade 2 anterolisthesis L5 on S1. IMPRESSION: No acute or significant abnormalities seen in the chest, abdomen or intrapelvic contents. Intertrochanteric fracture proximal right femur with varus angulation.
[2024-06-07 22:30] LABS: Blood Morphology Comment NOT SEEN (NOT SEEN); Platelet Estimate ADEQ; White Blood Cell Scan OK (OK)
--- NOTE | 2024-06-07 23:19 | ER ---
Nurse's Notes [facility] Name: Jaida Chance Age: 89 yrs Sex: Female : 1935 Arrival Date: 06/07/2024 Time: 20:01 Bed 7 Private MD: Diagnosis: Right intertrochanteric hip fracture, acute fall at home, Presentation: 06/07 20:11 Chief complaint: Patient states: was getting her cat out of the room, stumbled and fell al5 on her R hip, c/o severe R hip pain. Care prior to arrival: Medication(s) given: 100 mcg fentanyl IV initiated. 20 GA, in the right forearm. Mechanism of Injury: Fall. Trauma event details: Injury occurred in the [facility], Injury occurred: at home. Injury occurred: June 07, 2024. 20:11 Acuity: EILEEN 3 al5 20:11 Method Of Arrival: EMS: [facility] al5 20:22 Coronavirus screen: At this time, the client does not indicate any symptoms associated al5 with coronavirus-19. Ebola Screen: No symptoms or risks identified at this time. Initial Sepsis Screen: Does the patient meet any 2 criteria? No. Patient's initial sepsis screen is negative. Does the patient have a suspected source of infection? No. Patient's initial sepsis screen is negative. Risk Assessment: Do you want to hurt yourself or someone else? Patient reports no desire to harm self or others. Onset of symptoms was June 07, 2024. Triage Assessment: 20:20 General: see triage assessment. al5 Trauma Activation: Physician: ED Physician; Name: ; Notified At: ; Arrived At: Physician: General Surgeon; Name: ; Notified At: ; Arrived At: Physician: Radiology; Name: ; Notified At: ; Arrived At: Physician: Respiratory; Name: ; Notified At: ; Arrived At: Physician: Lab; Name: ; Notified At: ; Arrived At: 20:11 n/a al5 Historical: - Allergies: 20:18 Codeine (Upset stomach); al5 20:18 Milk/dairy products; al5 - Home Meds: 20:18 escitalopram oxalate 20 mg Oral tab [Active]; propranolol 20 mg Oral tab [Active]; al5 raloxifene 60 mg Oral tab [Active]; - PMHx: 20:18 Anxiety; Extremely Hard of Hearing; Hypertension; al5 - PSHx: 20:18 None; al5 - Immunization history: Last tetanus immunization: - up to date. - Infectious Disease History:: Denies. - Family history:: not pertinent. - Social history:: Smoking status: Patient denies any tobacco usage or history of. Screenin:19 Abuse screen: Denies threats or abuse. Denies injuries from another. Nutritional al5 screening: No deficits noted. Tuberculosis screening: No symptoms or risk factors identified. 20:22 [facility] ED Fall Risk Assessment (Adult) History of falling in the last 3 months, al5 including since admission Yes- single mechanical fall (1 pt) Confusion or Disorientation No (0 pts) Intoxicated or Sedated No (0 pts) Impaired Gait Yes (1 pt) Mobility Assist Device Used No (0 pt) Altered Elimination Yes (1 pt) Score/Fall Risk Level 3 or more points = High Risk Oriented to surroundings, Maintained a safe environment, Provided non-skid footwear, Hourly rounding (assess needs \T\ fall precautionary measures) done, Apply high fall risk patient identification: yellow non skid footwear/ fall signage. Primary Survey: 20:18 NO uncontrolled hemorrhage observed. A: The client is awake and alert. The airway is al5 patent. The client is alert. Airway: patent, No supplemental oxygen in use on arrival. Breathing/Chest: Spontaneous respiratory effort, equal unlabored respirations, breath sounds clear bilaterally, regular pattern, symmetrical chest rise and fall. Respiratory effort: spontaneous, unlabored, Respiratory pattern: regular, Chest inspection: symmetrical rise and fall of the chest. Circulation: No external hemorrhage present. Regular and strong central pulse, skin warm/dry/normal color. Skin color: pink, Skin temperature: warm, dry. Disability Pupils are equal, round, reactive to light and accommodation. Client is alert. Exposure/Environment: There is no evidence of uncontrolled external bleeding. Obvious injury(ies) are noted at this time: injury to R hip A warming method has been applied: A warm blanket has been provided to the patient. 06/08 01:16 Reassessment Alertness and Airway: Awake and alert. The airway is patent. Airway Patent al5 Breathing: Spontaneous respiratory effort, equal unlabored respirations, breath sounds clear bilaterally, regular pattern with symmetrical chest rise and fall. Respiratory effort Spontaneous Unlabored Respiratory pattern Regular Circulation: No external hemorrhage noted. Regular and strong central pulse, skin warm/dry/normal color. Color [place] Temperature Warm Dry. Secondary Survey: 06/07 20:19 HEENT: No deficits noted. Gastrointestinal: No deficits noted. : No signs and/or al5 symptoms were reported regarding the genitourinary system. Musculoskeletal: Reports pain in R hip Pain is 6 out of 10 on a pain scale. Assessment: 20:16 General: Appears in no apparent distress. uncomfortable, Behavior is calm, cooperative. al5 Pain: Complains of pain in hip Pain currently is 6 out of 10 on a pain scale. Neuro: Level of Consciousness is awake, alert, obeys commands, Oriented to person, place, time, situation. EENT: No signs and/or symptoms were reported regarding the EENT system. Cardiovascular: Capillary refill < 3 seconds Patient's skin is warm and dry. Respiratory: Airway is patent Respiratory effort is even, unlabored, Respiratory pattern is regular, symmetrical. GI: No signs and/or symptoms were reported involving the gastrointestinal system. : No signs and/or symptoms were reported regarding the genitourinary system. Derm: Skin is intact, Skin is pink, warm \T\ dry. normal. Musculoskeletal: Reports pain in R hip Pain is 6 out of 10 on a pain scale. 22:02 Reassessment: Patient appears in no apparent distress at this time. No changes from al5 previously documented assessment. Patient and/or family updated on plan of care and expected duration. Pain level reassessed. Patient is alert, oriented x 3, equal unlabored respirations, skin warm/dry/pink. Vital Signs: 20:21 BP 160 / 64; Pulse 67; Resp 16; Temp 98.9; Pulse Ox 100% on R/A; Weight 44.91 kg; al5 Height 5 ft. 0 in. ; Pain 6/10; 20:30 BP 160 / 68; Pulse 65; Resp 18; Pulse Ox 100% on R/A; al5 20:45 BP 153 / 60; Pulse 79; Resp 17; Pulse Ox 100% on R/A; al5 21:00 BP 148 / 52; Pulse 79; Resp 16; Pulse Ox 98% on R/A; al5 21:15 BP 156 / 60; Pulse 70; Resp 18; Pulse Ox 97% on R/A; al5 21:42 BP 173 / 60; Pulse 68; Resp 18; Pulse Ox 95% on R/A; al5 21:45 BP 169 / 93; Pulse 71; Resp 16; Pulse Ox 94% on R/A; al5 22:30 BP 150 / 60; Pulse 75; Resp 15; Pulse Ox 97% ; dd2 23:30 BP 151 / 50; Pulse 64; Resp 16; Pulse Ox 99% ; dd2 06/08 00:00 BP 130 / 91; Pulse 75; Resp 18; Pulse Ox 100% on R/A; al5 00:34 BP 129 / 53; Pulse 69; Resp 15; Pulse Ox 100% on 2 lpm NC; dd2 01:00 BP 118 / 51; Pulse 66; Resp 16; Pulse Ox 100% on R/A; al5 01:16 BP 116 / 58; Pulse 70; Resp 15; Pulse Ox 100% on R/A; al5 06/07 20:21 Body Mass Index 19.33 (44.91 kg, 152.4 cm) al5 06/07 20:21 Pain Scale: Adult al5 Robbie Coma Score: 06/07 20:21 Eye Response: spontaneous(4). Motor Response: obeys commands(6). Verbal Response: al5 oriented(5). Total: 15. 23:21 Eye Response: spontaneous(4). Motor Response: obeys commands(6). Verbal Response: sp4 oriented(5). Total: 15. Trauma Score (Adult): 20:21 Eye Response: spontaneous(1); Verbal Response: oriented(1); Motor Response: obeys al5 commands(2); Systolic BP: > 89 mm Hg(4); Respiratory Rate: 10 to 29 per min(4); [place] Score: 15; Trauma Score: 12 ED Course: 20:10 Patient arrived in ED. al5 20:11 Jeff Garvin MD is Attending Physician. al5 20:12 Triage completed. al5 20:16 Tangela Horn RN is Primary Nurse. al5 20:19 Patient has correct armband on for positive identification. Bed in low position. Call al5 light in reach. Side rails up X2. 20:20 Maintain EMS IV. Dressing intact. Good blood return noted. Site clean \T\ dry. Gauge \T\ al 5 site: 20 G R forearm. Flushed with 10 mL NS. Patient maintains SpO2 saturation greater than 95% on room air. 20:22 Thermoregulation: warm blanket given to patient. al5 20:23 Provided Education on: plan of care. al5 20:38 Arm band placed on right wrist. Patient placed in an exam room, on a stretcher, on dd2 pulse oximetry. 21:05 EKG done, by ED staff, reviewed by Jeff Garvin MD. oe 21:05 Basic Metabolic Panel Sent. oe 21:05 CBC with Diff Sent. oe 21:05 LFT's Sent. oe 21:05 Magnesium Sent. oe 21:05 NT PRO-BNP Sent. oe 21:05 PT-INR Sent. oe 21:05 Troponin HS Sent. oe 21:16 XRAY Chest (1 view) In Process Unspecified. EDMS 21:16 Pelvis XRAY In Process Unspecified. EDMS 21:16 Femur Right XRAY In Process Unspecified. EDMS 21:44 CT Head C Spine In Process Unspecified. EDMS 21:44 CT Chest Abdomen Pelvis W/O Contrast In Process Unspecified. EDMS 23:18 Marcos Carty MD is Hospitalizing Provider. sp4 06/08 01:47 No provider procedures requiring assistance completed. Patient admitted, IV remains in dd2 place. Administered Medications: 06/07 21:06 Drug: Ondansetron IVP 4 mg IVP once; over 2 minutes Route: IVP; Site: right antecubital;dd2 21:21 Follow up: Response: No adverse reaction dd2 21:06 Drug: NS 0.9% IV 500 ml 500 ml IV at 1 bolus once; to be given as a bolus over 30 dd2 minutes Volume: 500 ml; Route: IV; Rate: 1 bolus; Site: right antecubital; 21:21 Follow up: Response: No adverse reaction dd2 21:36 Follow up: IV Status: Completed infusion; IV Intake: 500ml dd2 21:07 Drug: fentaNYL (PF) IVP 25 mcg IVP once Route: IVP; Site: right antecubital; dd2 21:22 Follow up: Response: No adverse reaction dd2 06/08 00:11 Drug: fentaNYL (PF) IVP 25 mcg IVP once Route: IVP; Site: right antecubital; dd2 00:26 Follow up: Response: No adverse reaction dd2 Medication: 06/07 20:22 VIS not applicable for this client. al5 Intake: 21:36 IV: 500ml; Total: 500ml. dd2 20:21 n/a al5 Outcome: 23:19 Decision to Hospitalize by Provider. sp4 06/08 01:16 Patient's length of stay in the Emergency Department was greater than 2 hours. waiting al5 for bed assignmentPatient's length of stay extended due to 01:47 Admitted to Med/surg accompanied by tech, room 202, with chart, dd2 01:47 Condition: stable 01:47 Instructed on the need for admit, Demonstrated understanding of instructions, 01:49 Patient left the ED. dd2 Signatures: Dispatcher [employer] EDMS Xavier Dominguez Sergey, MD MD sp4 Tangela Horn RN RN al5 CARYL ROBERTSON RN RN dd2
--- NOTE | 2024-06-07 23:20 | EDPHYS ---
Physician Documentation [facility] Name: Jaida Chance Age: 89 yrs Sex: Female : 1935 Arrival Date: 06/07/2024 Time: 20:01 Bed 7 Private MD: ED Physician Jeff Garvin HPI: 06/07 20:13 This 89 yrs old Female presents to ER via EMS with complaints of Fall Injury, sp4 Hip Injury. 23:11 Very pleasant 89-year-old female presents with complaint of recent fall and right hip sp4 pain. Patient was found on the floor by EMS.. 23:19 Patient has history of of failure to thrive, physical debility, nausea hypertension sp4 anxiety. Patient's medications include Lexapro, lorazepam as needed, propranolol 20 mg p.o. twice daily, raloxifene 60 mg p.o. daily, ibandronate, denied any blood thinners. Patient reports moderate to severe right hip pain. Historical: - Allergies: 20:18 Codeine (Upset stomach); al5 20:18 Milk/dairy products; al5 - Home Meds: 20:18 escitalopram oxalate 20 mg Oral tab [Active]; propranolol 20 mg Oral tab [Active]; al5 raloxifene 60 mg Oral tab [Active]; - PMHx: 20:18 Anxiety; Extremely Hard of Hearing; Hypertension; al5 - PSHx: 20:18 None; al5 - Immunization history: Last tetanus immunization: - up to date. - Infectious Disease History:: Denies. - Family history:: not pertinent. - Social history:: Smoking status: Patient denies any tobacco usage or history of. ROS: 23:21 Constitutional: Negative for fever, chills, and weight loss, positive right hip pain, sp4 positive for back pain 23:21 All other systems are negative, Exam: 23:21 Constitutional: Patient is frail elderly female with signs of physical deconditioning. sp4 Signs of mild to moderate dementia. Head/Face: Normocephalic, atraumatic. Eyes: Pupils equal round and reactive to light, extra-ocular motions intact. Lids and lashes normal. Conjunctiva and sclera are not injected. Cornea within normal limits. Periorbital areas with no swelling, redness, or edema. ENT: Nares patent. No nasal discharge, no septal abnormalities noted. Tympanic membranes are normal and external auditory canals are clear. Oropharynx with no redness, swelling, or masses, exudates, or evidence of obstruction, uvula midline. Mucous membranes moist. Neck: Trachea midline, no thyromegaly or masses palpated, and no cervical lymphadenopathy. Supple, full range of motion without nuchal rigidity, or vertebral point tenderness. Chest/axilla: Normal chest wall appearance and motion. Nontender with no deformity. No lesions are appreciated. Cardiovascular: Regular rate and rhythm with a normal S1 and S2. No gallops, murmurs, or rubs. Normal PMI, no JVD. No pulse deficits. Respiratory: Lungs have equal breath sounds bilaterally, clear to auscultation and percussion. No rales, rhonchi or wheezes noted. No increased work of breathing, no retractions or nasal flaring. Abdomen/GI: Soft, with normal bowel sounds. No distension or tympany. No guarding or rebound. No evidence of tenderness throughout. Back: No spinal tenderness. No costovertebral tenderness. Skin: Warm, dry with normal turgor. Normal color with no rashes, no lesions, and no evidence of cellulitis. MS/ Extremity: Pulses equal, no cyanosis. Neurovascular intact. Full, normal range of motion. Neuro: Awake and alert, GCS 15, oriented to person, place, time, and situation. Cranial nerves II-XII grossly intact. Motor strength 5/5 in all extremities. Sensory grossly intact. Psych: Awake, alert, with orientation to person, place and time. Behavior, mood, and affect are within normal limits 23:22 ECG was reviewed by the Attending Physician. EKG at 2055 normal sinus rhythm rate sp4 71, normal EKG Vital Signs: 20:21 BP 160 / 64; Pulse 67; Resp 16; Temp 98.9; Pulse Ox 100% on R/A; Weight 44.91 kg; al5 Height 5 ft. 0 in. ; Pain 6/10; 20:30 BP 160 / 68; Pulse 65; Resp 18; Pulse Ox 100% on R/A; al5 20:45 BP 153 / 60; Pulse 79; Resp 17; Pulse Ox 100% on R/A; al5 21:00 BP 148 / 52; Pulse 79; Resp 16; Pulse Ox 98% on R/A; al5 21:15 BP 156 / 60; Pulse 70; Resp 18; Pulse Ox 97% on R/A; al5 21:42 BP 173 / 60; Pulse 68; Resp 18; Pulse Ox 95% on R/A; al5 21:45 BP 169 / 93; Pulse 71; Resp 16; Pulse Ox 94% on R/A; al5 22:30 BP 150 / 60; Pulse 75; Resp 15; Pulse Ox 97% ; dd2 23:30 BP 151 / 50; Pulse 64; Resp 16; Pulse Ox 99% ; dd2 06/08 00:00 BP 130 / 91; Pulse 75; Resp 18; Pulse Ox 100% on R/A; al5 00:34 BP 129 / 53; Pulse 69; Resp 15; Pulse Ox 100% on 2 lpm NC; dd2 01:00 BP 118 / 51; Pulse 66; Resp 16; Pulse Ox 100% on R/A; al5 01:16 BP 116 / 58; Pulse 70; Resp 15; Pulse Ox 100% on R/A; al5 06/07 20:21 Body Mass Index 19.33 (44.91 kg, 152.4 cm) al5 06/07 20:21 Pain Scale: Adult al5 [place] Coma Score: 06/07 20:21 Eye Response: spontaneous(4). Motor Response: obeys commands(6). Verbal Response: al5 oriented(5). Total: 15. 23:21 Eye Response: spontaneous(4). Motor Response: obeys commands(6). Verbal Response: sp4 oriented(5). Total: 15. Trauma Score (Adult): 20:21 Eye Response: spontaneous(1); Verbal Response: oriented(1); Motor Response: obeys al5 commands(2); Systolic BP: > 89 mm Hg(4); Respiratory Rate: 10 to 29 per min(4); Robbie Score: 15; Trauma Score: 12 MDM: 20:17 Medical Screening Exam initiated sp4 23:22 Differential diagnosis: abrasion, closed head injury, contusion, fracture, laceration, sp4 multiple trauma, sprain, strain. Data reviewed: vital signs, nurses notes, lab test result(s), EKG, radiologic studies, CT scan, plain films. 23:24 ED course: EXAM: CT brain without contrast HISTORY: fall , head injury COMPARISON: None sp4 TECHNIQUE: Multiple contiguous axial images were obtained and a CT of the brain without contrast. Sagittal and coronal reformats were performed. One or more of the following dose reduction techniques were used: Automated exposure control, adjustment of the mA and/or kV according to patient size, and/or iterative reconstruction. FINDINGS: No evidence of hydrocephalus, intracranial hemorrhage, or extra-axial fluid collection. Moderate brain atrophy with moderate periventricular and deep white matter chronic microvascular ischemic changes present. No evidence of midline shift or areas of brain edema. The calvarium is intact. The visualized paranasal sinuses and mastoid air cells are essentially clear. IMPRESSION: No evidence of acute intracranial abnormality. EXAM: CT of the cervical spine without contrast HISTORY: Neck pain, injury fall , head injury TECHNIQUE: Multiple contiguous axial images were obtained in a CT of the cervical spine without contrast. Sagittal and coronal reformats were performed. FINDINGS: The vertebral bodies demonstrate normal height and alignment. No evidence of acute fracture or subluxation.. Moderate multilevel degenerative cervical changes. No prevertebral soft tissue swelling is seen. The posterior facets are well aligned. Normal alignment of the skull base with the cervical spine is seen. Moderate bilateral carotid atherosclerosis, greater on the left. The lung apices are unremarkable. IMPRESSION: No evidence of acute osseous abnormality of the cervical spine.. ED course: CT chest , abdomen, pelvis - IMPRESSION: No acute or significant abnormalities seen in the chest, abdomen or intrapelvic contents. Intertrochanteric fracture proximal right femur with varus angulation. . ED course: EXAMINATION: ONE VIEW CHEST XR CLINICAL INDICATION: fall TECHNIQUE: Frontal chest projection is submitted. Examination is limited by patient positioning and technique. COMPARISON: No prior exam. FINDINGS: The lungs are well inflated and clear. The heart is upper limit of normal in size. No displaced fractures identified. IMPRESSION: No acute intrathoracic abnormalities. . ED course: EXAMINATION: XR PELVIS CLINICAL INDICATION: Right hip pain TECHNIQUE: AP Pelvis examination was obtained. COMPARISON: No prior exam. FINDINGS: Intertrochanteric fracture of the proximal right femur seen with mild varus angulation. No dislocation is seen. . ED course: R femur X ray - FINDINGS: Intertrochanteric fracture of the proximal right femur is seen with mild varus angulation. No dislocation. . 12/12 20:14 Order name: Basic Metabolic Panel; Complete Time: 23:01 [facility] 06/07 20:14 Order name: CBC with Diff; Complete Time: 23:01 [facility] 06/07 20:14 Order name: LFT's; Complete Time: 23:01 [facility] 06/07 20:14 Order name: Magnesium; Complete Time: 23:02 [facility] 06/07 20:14 Order name: NT PRO-BNP; Complete Time: 23:02 [facility] 06/07 20:14 Order name: PT-INR; Complete Time: 23:02 [facility] 06/07 20:14 Order name: Troponin HS; Complete Time: 23:02 [facility] 06/07 20:14 Order name: CK; Complete Time: 23:02 [facility] 06/07 22:30 Order name: CBC Smear Scan; Complete Time: 23:02 [facility] 06/08 00:16 Order name: Urinalysis w/ reflexes [facility] 06/07 20:14 Order name: XRAY Chest (1 view); Complete Time: 23:02 [facility] 06/07 20:16 Order name: Pelvis XRAY; Complete Time: 23:02 [facility] 06/07 20:16 Order name: Femur Right XRAY; Complete Time: 23:02 [facility] 06/07 21:23 Order name: CT Head C Spine; Complete Time: 23:02 [facility] 06/07 21:23 Order name: CT Chest Abdomen Pelvis W/O Contrast; Complete Time: 23:02 [facility] 06/07 20:14 Order name: Cardiac monitoring; Complete Time: 20:43 [facility] 06/07 20:14 Order name: EKG - Nurse/Tech; Complete Time: 21:05 [facility] 06/07 20:14 Order name: IV Saline Lock; Complete Time: 20:43 [facility] 06/07 20:14 Order name: Labs collected and sent; Complete Time: 20:43 [facility] 06/07 20:14 Order name: O2 Per Protocol; Complete Time: 20:43 [facility] 06/07 20:14 Order name: O2 Sat Monitoring; Complete Time: 20:43 sp4 EC:56 Rate is 71 beats/min. Rhythm is regular, Normal Sinus Rhythm. QRS [place] is Normal. SC sp4 interval is normal. QRS interval is normal. QT interval is normal. No Q waves. T waves are Normal. No ST changes noted. Clinical impression: No evidence of ischemia. Interpreted by me. Reviewed by me. Administered Medications: 21:06 Drug: Ondansetron IVP 4 mg IVP once; over 2 minutes Route: IVP; Site: right antecubital;dd2 21:21 Follow up: Response: No adverse reaction dd2 21:06 Drug: NS 0.9% IV 500 ml 500 ml IV at 1 bolus once; to be given as a bolus over 30 dd2 minutes Volume: 500 ml; Route: IV; Rate: 1 bolus; Site: right antecubital; 21:21 Follow up: Response: No adverse reaction dd2 21:36 Follow up: IV Status: Completed infusion; IV Intake: 500ml dd2 21:07 Drug: fentaNYL (PF) IVP 25 mcg IVP once Route: IVP; Site: right antecubital; dd2 21:22 Follow up: Response: No adverse reaction dd2 06/08 00:11 Drug: fentaNYL (PF) IVP 25 mcg IVP once Route: IVP; Site: right antecubital; dd2 00:26 Follow up: Response: No adverse reaction dd2 Disposition Summary: 06/07/24 23:19 Hospitalization Ordered Notes: Hospitalization Status: Inpatient Admission sp4 Provider: Marcos Carty sp4 [facility] ([facility]) sp4 Condition: Stable sp4 Problem: new sp4 Symptoms: have improved sp4 Bed/Room Type: Standard sp4 Room Assignment: 202(06/08/24 00:23) Diagnosis - Right intertrochanteric hip fracture, acute fall at home, sp4 Forms: - Medication Reconciliation Form sp4 - SBAR form sp4 - Leadership Thank You Letter sp4 Signatures: Dispatcher [employer] EDMS Varsha Garsia RN RN kl Potepalov, Sergey, MD MD sp4 Tangela Horn RN RN al5 DAVIS, DIANA, RN RN dd2 Corrections: (The following items were deleted from the chart) 06/07 20:14 20:14 BASIC METABOLIC PANEL+C.LAB.BRZ ordered. EDMS EDMS 20:14 20:14 CBC+H.LAB.BRZ ordered. EDMS EDMS 20:14 20:14 HEPATIC FUNCTION+C.LAB.BRZ ordered. EDMS EDMS 20:14 20:14 MAGNESIUM+C.LAB.BRZ ordered. EDMS EDMS 20:14 20:14 PROBNP+C.LAB.BRZ ordered. EDMS EDMS 20:14 20:14 PROTIME (+INR)+COAG.LAB.BRZ ordered. EDMS EDMS 20:14 20:14 Troponin High Sensitivity+C.LAB.BRZ ordered. EDMS EDMS 20:14 20:14 Chest Single View+RAD.RAD.BRZ ordered. EDMS EDMS 20:15 20:15 CREATINE PHOSPHOKINASE+C.LAB.BRZ ordered. EDMS EDMS 21:24 21:23 Chest Abdomen Pelvis Wo Con+CT.RAD.BRZ ordered. EDMS EDMS 06/08 00:23 06/07 23:19 sp4 kl
[2024-06-08] MEDS ORDERED: FENTANYL CITR 100 MCG/2 ML ONE ×2 (00:03→13:25)
[2024-06-08] MEDS ORDERED: ACETAMINOPHEN 325 MG TABLET PO PRN (00:10)
--- NOTE | 2024-06-08 00:10 | P.HP ---
Certification for Inpatient Patient admitted to: Inpatient With expected LOS: >2 Midnights Practitioner: I am a practitioner with admitting privileges, knowledge of patient current condition, hospital course, and medical plan of care. Services: Services provided to patient in accordance with Admission requirements found in Title 42 Section 412.3 of the Code of Federal Regulations Patient History Date of Service: 06/07/24 Reason for admission: hip fracture History of Present Illness: 89-year-old female with history of dementia, hypertension presents to the emergency room after a fall. Imaging revealed a right intertrochanteric fracture. History is limited due to her being hard of hearing as well as history of dementia. Orthopedics was consulted in the ER. Labs reviewed noted to have a mild elevated BNP as well as macrocytic anemia. She did complain of lower back pain. Allergies codeine Allergy (Unverified 10/12/16 22:57) Unknown milk products Allergy (Uncoded 08/15/21 20:21) Itching/Hives/Rash Home Medications: Escitalopram [Lexapro*] 20 mg PO DAILY 08/15/21 LORazepam [Lorazepam] 0.5 mg PO DAILY PRN 08/15/21 Propranolol HCl 20 mg PO BID 08/15/21 Raloxifene HCl 60 mg PO DAILY 08/15/21 Ibandronate Sodium 1 tab PO SEECOM 08/16/21 dexAMETHasone [Dexamethasone] 2 mg PO SEECOM 10 Days #15 tablet 08/17/21 - Past Medical/Surgical History -: Hypertension -: Anxiety - Social History Alcohol use: No CD- Drugs: No Caffeine use: No Review of Systems 10-point ROS is otherwise unremarkable Physical Examination - Physical Exam General: Alert, Cooperative HEENT: Atraumatic, Normocephalic Respiratory: Clear to auscultation bilaterally, Normal air movement Cardiovascular: Regular rate/rhythm, Normal S1 S2 Gastrointestinal: Normal bowel sounds Musculoskeletal: Tenderness, Other (right hip dec rom) - Studies Laboratory Data (last 24 hrs) 06/07/24 06/07/24 06/07/24 21:02 21:02 21:02 WBC 14.40 H Hgb 10.1 L Hct 30.5 L Plt Count 242 PT 11.6 INR 1.04 Sodium 138 Potassium 4.1 BUN 24 H Creatinine 1.02 Glucose 139 H Magnesium 1.8 Total Bilirubin 1.0 AST 26 ALT 15 Alkaline Phosphatase 61 Assessment and Plan - Problems (Diagnosis) (1) Hip fracture, right Current Visit: Yes Status: Acute - Plan 89 year-old female history of hypertension, dementia presents after fall. Intertrochanteric fracture right History of dementia hard of hearing hypertension Macrocytic anemia 1. admit to med surg 2. npo 3. ivf, prn morphine 4. orthopedics called in ER DVT:lovenox - Advance Directives Does patient have a Living Will: No Does patient have a Durable POA for Healthcare: No
[2024-06-08] MEDS: NA CHLORIDE 0.9% 1,000 ML IV SCH (01:58)
[2024-06-08] MEDS: MORPHINE 2 MG/ML SYR IV PRN ×2 (03:08→21:53)
[2024-06-08] MEDS: ENOXAPARIN 30 MG/0.3 ML SQ SCH (09:00)
[2024-06-08 10:25] LABS: Specific Gravity 1.021 (1.005-1.030); Sqamous Epithelial None Seen /HPF (None Seen); Urine Bacteria None Seen /HPF (<20); Urine Bilirubin NEGATIVE (Negative); Urine Blood 1+ (Negative); Urine Clarity Extremely Turbid (Clear); Urine Color Light-Yellow (Yellow); Urine Culture Reflex Order REFLEXED; Urine Glucose NEGATIVE (Negative); Urine Ketones NEGATIVE (Negative); Urine Microscopic Reflex YN ORDER UMIC; Urine Nitrite NEGATIVE (Negative); Urine Protein TRACE (Negative); Urine Urobilinogen Normal (Normal); Urine Yeast (Budding) Trace /HPF (None Seen)
--- NOTE | 2024-06-08 12:44 | P.PN ---
Subjective Date of Service: 06/08/24 Chief Complaint: hip fracture Patient denies any complaint. She is awake, alert and interactive. She denies any chest pain or shortness of breath. Physical Examination - Vital Signs Temperature: 98.3 F Blood Pressure: 168/69 Pulse: 77 Respirations: 12 Pulse Ox (%): 100 - Studies Laboratory Data (last 24 hrs) 06/07/24 06/07/24 06/07/24 21:02 21:02 21:02 WBC 14.40 H Hgb 10.1 L Hct 30.5 L Plt Count 242 PT 11.6 INR 1.04 Sodium 138 Potassium 4.1 BUN 24 H Creatinine 1.02 Glucose 139 H Magnesium 1.8 Total Bilirubin 1.0 AST 26 ALT 15 Alkaline Phosphatase 61 Assessment And Plan - Plan Physical examination General: Alert and oriented x3, NAD, HEENT: Conjunctiva not pale, anicteric sclera Neck: Supple, no elevated JVD Heart: Heart sounds 1 and 2 normal, regular rhythm, normal rate, no pedal edema Lungs: Clear to auscultation bilaterally, adequate breath sounds bilaterally, no rhonchi or crackles. Abdomen: Soft, nondistended, nontender, normal bowel sounds. Extremities: No tenderness, no deformity Skin: Normal skin turgor, no rash, no nodules or ulcers. Neuro: No focal motor deficit. Normal speech. Psychiatry: Normal mood, no agitation. Assessment and plan Diagnosis Right intertrochanteric hip fracture Fall Anemia Anxiety disorder Plan: Right intertrochanteric fracture secondary to fall Orthopedic Dr. Ellis aware. Dr. Ellis is planning ORIF today. Keep n.p.o. Analgesics as needed. Patient has no active cardiac disease. Chest imaging unremarkable. Patient is low risk for moderate surgery. Anemia Monitor H&H and transfuse as needed for hemoglobin less than 7. Hypertension Hold propranolol for now. Hydralazine IV as needed for BP spikes. Anxiety disorder Patient is currently n.p.o. Resume home medications after surgery. DVT prophylaxis: Lovenox Advanced directive: Full code
[2024-06-08] MEDS ORDERED: HYDRALAZINE HCL 20 MG/ML VIAL IV PRN (12:50)
[2024-06-08] MEDS ORDERED: ONDANSETRON 4 MG/2 ML VIAL ONE (13:24)
[2024-06-08] MEDS ORDERED: propofoL 200 MG/20 ML VIAL IV ONE ×2 (13:25→13:44)
[2024-06-08] MEDS ORDERED: LIDOCAINE 2% MPF 5 ML VIAL ONE (13:25)
[2024-06-08] MEDS: TRANEXAMIC ACID 1,000 MG/10 ML VIAL IV ONE (13:32)
[2024-06-08] MEDS: ROPIVACAINE HCL 40 ML ONE (13:37)
[2024-06-08] MEDS: CEFAZOLIN SODIUM 1 GM/VIAL ONE (13:52)
[2024-06-08] MEDS: NA CHLORIDE 0.9% 500 ML ONE (13:52)
[2024-06-08] MEDS ORDERED: dexAMETHasone 10 MG/ML VIAL ONE (14:11)
[2024-06-08] MEDS ORDERED: EPINEPHRINE 1 MG/ML VIAL ONE (14:11)
--- NOTE | 2024-06-08 14:50 | EKG ---
Test Date: 2024-06-07 Test Time: 20:56:44 Applicator Sprayer: LYNETTE MEASUREMENT RESULTS: Intervals: Rate: 71 WI: 148 QRSD: 68 QT: 434 QTc: 471 [place]: P: 100 WI: 148 QRS: 68 T: 61 INTERPRETIVE STATEMENTS: Normal sinus rhythm Nonspecific ST abnormality Abnormal ECG Compared to ECG 08/15/2021 09:32:34 No significant changes Electronically Signed On 06-08-24 14:48:55 [employer] by Abiodun Steiner
--- NOTE | 2024-06-08 15:42 | RAD REPORT ---
EXAMINATION: Pelvis CLINICAL INDICATION: Female, 89 years old. s/p R IM RODDING COMPARISON: Yesterday FINDINGS: Status post right hip ORIF with intramedullary roberta and cephalomedullary screw. No immediate hardware complications. No new fractures. Peripheral vascular calcifications. IMPRESSION: Right hip ORIF without hardware complications or acute fractures.
[2024-06-08] MEDS: CEFAZOLIN 1 GM in NA CHLORIDE 0.9% 50 ML IVPB SCH (16:13)
--- NOTE | 2024-06-08 16:44 | RAD REPORT ---
EXAM: Fluoroscopy use, Hip in OR Right 2 View HISTORY: [facility] MAIN IM RODDING HIP COMPARISON: None FINDINGS: A total of 3 images were sent to PACS, during a fluoroscopically guided right hip ORIF. No radiologist was involved in protocoling or performance of the study, and no radiologist was present for the duration of the procedure. No interpretation of the saved images will be provided. Total fluoroscopy time: 2.1 minutes. IMPRESSION: Documentation of fluoroscopy use as above.
--- NOTE | 2024-06-08 19:12 | CON ---
Reason For Consultation: Right IT hip fracture. History Of Present Illness: Ms. Chance is an -[id number]-yhv woman, quite active, sustained a r ight IT hip fracture. We were asked to consult for this. After cardiac clearance, she will be taken for an intramedullary rodding. Followup will be at operative setting. LOKESH Voice ID: [id number] Report ID: [id number]
[2024-06-08] MEDS: ENSURE SURGERY 237 ML CAN PO SCH (20:34)
--- NOTE | 2024-06-09 01:52 | OP ---
Surgeon: Edward Ellis MD Preoperative Diagnosis: Right intertrochanteric hip fracture. Postoperative Diagnosis: Right intertrochanteric hip fracture. Procedure Performed: Right hip intramedullary rodding. Aircraft Technician: None. Anesthesia: General. Disposition: Recovery in stable condition. Estimated Blood Loss: Minimal. Procedure In Detail: The patient was taken to operative suite, placed in supine position, induced wi th anesthesia, suspended on the fracture table. A skin incision was created at the tip of the greate r trochanter. Entry portal was created. Awl was utilized to introduce the guidewire. A single stag e reaming was applied. A 9 x 130 short nail was utilized. A 95 lag screw with a 30 set screw. The patient tolerated the procedure well, was reversed from anesthesia, should be in the recovery room sh ortly. NICOLE/MAIKEL Voice ID: [id number] Report ID: [id number]
[2024-06-09 05:30] LABS: Absolute Lymphocytes (CBC) 0.6 K/uL (0.7-4.9); Absolute Monocytes 0.6 K/uL (0.1-1.3); Absolute Neutrophil 8.6 K/uL (1.8-8.0); Basophils % 0.2 % (0-1.3); Hematocrit 22.9 % (36.0-45.0); Hemoglobin 7.7 g/dL (12.0-15.0); Lymphocytes % 6.1 % (15.3-44.8); MCH 36.9 pg (27.0-35.0); MCHC 33.8 g/dL (32.0-36.0); MPV 9.1 fL (7.6-11.3); Monocytes % 6.6 % (3.3-12.3); Neutrophils % 87.1 % (41.7-73.7); Platelets 167 thou/uL (152-406); Red Cell Distribution Width 16.9 % (12.1-15.2)
[2024-06-09 05:33] LABS: MCV 109.1 fL (80-100)
[2024-06-09 05:50] LABS: Anion Gap 9.9 mEq/L (5.0-15.0); Potassium 3.9 mEq/L (3.5-5.1)
[2024-06-09] MEDS: HYDROCODONE/APAP 5/325 MG TAB PO PRN (09:52)
[2024-06-09] MEDS: ENOXAPARIN 30 MG/0.3 ML SQ SCH (12:45)
--- NOTE | 2024-06-09 12:47 | P.PN ---
Subjective Date of Service: 06/09/24 Chief Complaint: hip fracture ORIF done 06/08/24 She is awake, pleasantly confused. She appears to be in a good mood. She denies any pain. No recorded fever She is tolerating her diet. Physical Examination - Vital Signs Temperature: 97.8 F Blood Pressure: 102/55 Pulse: 90 Respirations: 16 Pulse Ox (%): 94 Assessment And Plan - Plan Physical examination General: Alert and oriented x3, NAD, HEENT: Conjunctiva not pale, anicteric sclera Neck: Supple, no elevated JVD Heart: Heart sounds 1 and 2 normal, regular rhythm, normal rate, no pedal edema Lungs: Clear to auscultation bilaterally, adequate breath sounds bilaterally, no rhonchi or crackles. Abdomen: Soft, nondistended, nontender, normal bowel sounds. Extremities: No tenderness, clean right hip wound dressing Skin: Normal skin turgor, no rash. Neuro: No focal motor deficit. Normal speech. Psychiatry: Normal mood, no agitation. Assessment and plan Diagnosis Right intertrochanteric hip fracture Fall Anemia Anxiety disorder Plan: Right intertrochanteric fracture secondary to fall Orthopedic Dr. Ellis evaluated patient Status post ORIF with intramedullary roberta 06/08/24. Analgesics as needed. PT to evaluate. Anemia Monitor H&H and transfuse as needed for hemoglobin less than 7. Hypertension Patient is normotensive today. Continue to hold propranolol. Hydralazine IV as needed for BP spikes. Anxiety disorder Resume home medications. DVT prophylaxis: Lovenox Advanced directive: Full code
[2024-06-09] MEDS: CEFTRIAXONE 1,000 MG in NA CHLORIDE 0.9% 50 ML IVPB SCH (13:10)
[2024-06-10 04:50] LABS: Absolute Basophils 0.1 K/uL (0-0.5); Absolute Eosinophils 0.2 K/uL (0-0.5); Absolute Monocytes 1.1 K/uL (0.1-1.3); Absolute Neutrophil 7.2 K/uL (1.8-8.0); Basophils % 1.1 % (0-1.3); Eosinophils % 2.1 % (0-4.4); Hematocrit 18.9 % (36.0-45.0); Hemoglobin 6.4 g/dL (12.0-15.0); Lymphocytes % 18.5 % (15.3-44.8); MCH 35.7 pg (27.0-35.0); MCHC 33.7 g/dL (32.0-36.0); MCV 105.8 fL (80-100); MPV 9.3 fL (7.6-11.3); Monocytes % 10.2 % (3.3-12.3); Neutrophils % 68.1 % (41.7-73.7); Nucleated Red Blood Cells % 0.1 % (0-0); Platelets 160 thou/uL (152-406); RBC Red Blood Cell Count 1.78 M/uL (3.86-4.86); Red Cell Distribution Width 16.7 % (12.1-15.2)
[2024-06-10 05:10] LABS: Anion Gap 6.9 mEq/L (5.0-15.0); Potassium 3.9 mEq/L (3.5-5.1)
[2024-06-10] MEDS: ESCITALOPRAM 20 MG TAB PO SCH (09:10)
--- NOTE | 2024-06-10 10:47 | P.PN ---
Subjective Date of Service: 06/10/24 Chief Complaint: hip fracture Subjective: Other (c/o of pin in right hip post op xary with excellent placement of implant will get up wit p.t. will likely need placement aggree with blood transfusion) Physical Examination - Vital Signs Temperature: 98.1 F Blood Pressure: 120/56 Pulse: 79 Respirations: 13 Pulse Ox (%): 100
--- NOTE | 2024-06-10 11:29 | P.PN ---
Subjective Date of Service: 06/10/24 Chief Complaint: hip fracture ORIF done 06/08/24 She is awake, no new complain She reports some pain in her right hip area No recorded fever She is tolerating her diet. Physical Examination - Vital Signs Temperature: 98.1 F Blood Pressure: 120/56 Pulse: 79 Respirations: 13 Pulse Ox (%): 100 Assessment And Plan - Plan Physical examination General: Alert and oriented x3, NAD, Heart: Heart sounds 1 and 2 normal, regular rhythm, normal rate, no pedal edema Lungs: Clear to auscultation bilaterally, adequate breath sounds bilaterally, no rhonchi or crackles. Abdomen: Soft, nondistended, nontender, normal bowel sounds. Extremities: No tenderness, clean right hip wound dressing Skin: Normal skin turgor, no rash. Neuro: No focal motor deficit. Normal speech. Psychiatry: Normal mood, no agitation. Assessment and plan Diagnosis Right intertrochanteric hip fracture Fall Anemia Anxiety disorder Plan: Right intertrochanteric fracture secondary to fall Orthopedic Dr. Ellis evaluated patient Status post ORIF with intramedullary roberta 06/08/24. Analgesics as needed. Continue PT Anticipating disposition to skilled rehab. Acute blood loss anemia Hemoglobin dropped to 6.4 Transfuse 1 unit PRBC. Hypertension Patient has been normotensive. Continue to hold propranolol. Hydralazine IV as needed for BP spikes. Anxiety disorder Current home medications. DVT prophylaxis: Lovenox Advanced directive: Full code
[2024-06-10] MEDS ORDERED: NA CHLORIDE 0.9% 250 ML IV SCH (12:00)
[2024-06-10] MEDS: NA CHLORIDE 0.9% 250 ML ONE (15:17)
[2024-06-10 22:15] LABS: Hematocrit 25.9 % (36.0-45.0); Hemoglobin 8.7 g/dL (12.0-15.0)
[2024-06-11 04:52] LABS: Absolute Basophils 0.1 K/uL (0-0.5); Absolute Eosinophils 0.3 K/uL (0-0.5); Absolute Lymphocytes (CBC) 1.6 K/uL (0.7-4.9); Absolute Monocytes 0.8 K/uL (0.1-1.3); Absolute Neutrophil 6.4 K/uL (1.8-8.0); Basophils % 1.2 % (0-1.3); Eosinophils % 3.7 % (0-4.4); Hematocrit 22.7 % (36.0-45.0); Hemoglobin 8.2 g/dL (12.0-15.0); MCH 40.4 pg (27.0-35.0); MCHC 36.1 g/dL (32.0-36.0); MPV 9.1 fL (7.6-11.3); Monocytes % 8.6 % (3.3-12.3); Neutrophils % 69.5 % (41.7-73.7); Nucleated Red Blood Cells % 0.1 % (0-0); Platelets 177 thou/uL (152-406); RBC Red Blood Cell Count 2.02 M/uL (3.86-4.86); Red Cell Distribution Width 17.7 % (12.1-15.2)
[2024-06-11 04:59] LABS: Anion Gap 4.7 mEq/L (5.0-15.0); Potassium 3.7 mEq/L (3.5-5.1)
[2024-06-11] MEDS: levoFLOXacin 750 MG TAB PO SCH (08:30)
--- NOTE | 2024-06-11 14:37 | P.PN ---
Subjective Date of Service: 06/11/24 Chief Complaint: hip fracture Status post ORIF 06/08/24 She has no new complain. She is pleasantly confused. She is tolerating her diet. Physical Examination - Vital Signs Temperature: 98.9 F Blood Pressure: 115/54 Pulse: 87 Respirations: 16 Pulse Ox (%): 98 Assessment And Plan - Plan Physical examination General: Alert and oriented x 2, NAD, Heart: Heart sounds 1 and 2 normal, regular rhythm, normal rate, no pedal edema Lungs: Clear to auscultation bilaterally, adequate breath sounds bilaterally, no rhonchi or crackles. Abdomen: Soft, nondistended, nontender, normal bowel sounds. Extremities: No tenderness, clean right hip wound dressing Skin: Normal skin turgor, no rash. Neuro: No focal motor deficit. Normal speech. Psychiatry: Normal mood, no agitation. Assessment and plan Diagnosis Right intertrochanteric hip fracture Fall Anemia Anxiety disorder Plan: Right intertrochanteric fracture secondary to fall Orthopedic Dr. Ellis evaluated patient Status post ORIF with intramedullary roberta 06/08/[address] Ellis Analgesics as needed. Continue PT Anticipating disposition to skilled rehab. Acute blood loss anemia Hemoglobin dropped to 6.4 Status post transfuse 1 unit PRBC. Posttransfusion hemoglobin is up to 8 Hypertension Patient has been normotensive. Continue to hold propranolol. Hydralazine IV as needed for BP spikes. Anxiety disorder Current home medications. Acute cystitis without hematuria Urine culture grew Pseudomonas aeruginosa. IV Rocephin discontinued. Patient started on oral Levaquin. DVT prophylaxis: Lovenox Advanced directive: Full code
--- NOTE | 2024-06-12 07:53 | P.PN ---
Date of Service: 06/12/24 Subjective: feels making improvements each day no new/worsening issues has not walked yet ROS: 10 point ROS as noted above, otherwise negative Physical Exam: GEN: Alert, NAD CV: Regular rate and rhythm, no edema Pulm: Nonlabored respirations on room air, clear bilaterally ABD: soft, nontender, nondistended MSK: R hip with some mild tenderness Neuro: Normal speech, normal affect Problem List: Right intertrochanteric hip fracture secondary to fall, s/p ORIF (06/08) Acute blood loss anemia Acute cystitis without hematuria Hypertension Anxiety Dementia Right intertrochanteric hip fracture secondary to fall, s/p ORIF (06/08) Dr. Redding, ortho consulted s/p ORIF 06/08 Pain control DVT prophylaxis continue PT Acute blood loss anemia hgb downtrended to 6.4 post-op. s/p 1 uPRBC 06/10; repeat hgb improved to 8.7 Daily labs. hgb in 8s. Close monitoring Acute cystitis without hematuria urine cx (06/08): grew Pseudomonas Aeruginoisa partially resistant to ceftazidime/zosyn IV rocephin (06/09-06/11) switched to oral levaquin (06/11) continue levaquin (06/11-) afebrile, no leukocytosis Hypertension confirm home meds PRN hydralazine Anxiety Dementia continue home lexapro continue supportive care VTE: Lovenox Code: Full Dispo: ?SNF Family requesting SNF placement however patient has been adamantly refusing SNF in the last few days. Patient is capable of making her own decisions and has not been deemed incompetent. Today, stated she is considering it - concerned due to bad experience with her in the past, and misses her cats at home Family to try and discuss possible SNF placement. cm/ss consulted for assistance. Time Spent Managing Pts Care (In Minutes): 55
[2024-06-12 11:29] LABS: Hematocrit 26.8 % (36.0-45.0); Hemoglobin 8.9 g/dL (12.0-15.0); MCH 34.9 pg (27.0-35.0); MCV 105.8 fL (80-100); MPV 8.8 fL (7.6-11.3); Platelets 246 thou/uL (152-406); RBC Red Blood Cell Count 2.54 M/uL (3.86-4.86)
[2024-06-12 11:42] LABS: Anion Gap 9.5 mEq/L (5.0-15.0); Magnesium 1.8 mg/dL (1.6-2.4); Potassium 3.5 mEq/L (3.5-5.1)
[2024-06-13 05:19] LABS: Hematocrit 24.2 % (36.0-45.0); Hemoglobin 8.3 g/dL (12.0-15.0); MCH 37.4 pg (27.0-35.0); MCHC 34.4 g/dL (32.0-36.0); MPV 8.8 fL (7.6-11.3); Platelets 240 thou/uL (152-406); RBC Red Blood Cell Count 2.22 M/uL (3.86-4.86); Red Cell Distribution Width 16.6 % (12.1-15.2)
[2024-06-13 05:31] LABS: Anion Gap 6.1 mEq/L (5.0-15.0); Magnesium 1.9 mg/dL (1.6-2.4); Potassium 4.1 mEq/L (3.5-5.1)
--- NOTE | 2024-06-13 10:43 | P.PN ---
Date of Service: 06/13/24 Subjective: no events overnight worked with PT yesterday. took few sidesteps, but to tired/weak for forward steps/walking tearful after some discussion with son regarding home vs snf. pt not wanting to go to snf, states son insistent states she understands she needs help, but had bad experience with her at a SNF. feels she would do better at home, has a friend that lives within a few minutes who can check on her discussed if not getting up here, how does she plan on getting out of bed on her own / get food / cook /bathroom etc if she doesn't have anyone at home 17/01, pt changed subject. ROS: 10 point ROS as noted above, otherwise negative Physical Exam: GEN: Alert, NAD CV: Regular rate and rhythm, no edema Pulm: Nonlabored respirations on room air, clear bilaterally ABD: soft, nontender, nondistended MSK: R hip with some mild tenderness Neuro: Normal speech, normal affect Problem List: Right intertrochanteric hip fracture secondary to fall, s/p ORIF (06/08) Acute blood loss anemia Acute cystitis without hematuria Hypertension Anxiety Dementia Right intertrochanteric hip fracture secondary to fall, s/p ORIF (06/08) Dr. Redding, ortho consulted s/p ORIF 06/08 Pain control DVT prophylaxis continue PT Acute blood loss anemia hgb downtrended to 6.4 post-op. s/p 1 uPRBC 06/10; repeat hgb improved to 8.7 Daily labs. hgb in 8s. Close monitoring Acute cystitis without hematuria urine cx (06/08): grew Pseudomonas Aeruginoisa partially resistant to ceftazidime/zosyn IV rocephin (06/09-06/11) switched to oral levaquin (06/11) continue levaquin (06/11-) afebrile, no leukocytosis Hypertension confirm home meds PRN hydralazine Anxiety Dementia continue home lexapro continue supportive care VTE: Lovenox Code: Full Dispo: ?SNF Family requesting SNF placement however patient has been adamantly refusing SNF in the last few days. Patient is capable of making her own decisions and has not been deemed incompetent. Patient agreeable to SNF but needs to be near [place] - concerned due to bad experience with her in the past, and misses her cats at home cm/ss has been unable to get ahold of patient's family to pick SNF location Time Spent Managing Pts Care (In Minutes): 55
[2024-06-14 05:46] LABS: Hematocrit 24.9 % (36.0-45.0); Hemoglobin 8.5 g/dL (12.0-15.0); MCH 35.9 pg (27.0-35.0); MCHC 34.1 g/dL (32.0-36.0); MCV 105.2 fL (80-100); MPV 8.4 fL (7.6-11.3); Platelets 297 thou/uL (152-406); RBC Red Blood Cell Count 2.36 M/uL (3.86-4.86); Red Cell Distribution Width 16.2 % (12.1-15.2)
[2024-06-14 05:58] LABS: Anion Gap 7.2 mEq/L (5.0-15.0); Magnesium 1.8 mg/dL (1.6-2.4); Potassium 3.2 mEq/L (3.5-5.1)
--- NOTE | 2024-06-14 10:55 | P.PN ---
Date of Service: 06/14/24 Subjective: Patient ultimately wanting to go home but seems agreeable to SNF this morning after lengthy discussion Needs to talk to her family further regarding choice location no events overnight pain well controlled with norco tolerating diet without issues ROS: 10 point ROS as noted above, otherwise negative Physical Exam: GEN: Alert, NAD CV: Regular rate and rhythm, no edema Pulm: Nonlabored respirations on room air, clear bilaterally ABD: soft, nontender, nondistended MSK: R hip with some mild tenderness Neuro: Normal speech, normal affect Problem List: Right intertrochanteric hip fracture secondary to fall, s/p ORIF (06/08) Dementia Acute blood loss anemia Acute cystitis without hematuria Hypertension Anxiety Right intertrochanteric hip fracture secondary to fall, s/p ORIF (06/08) Dr. Redding, ortho consulted s/p ORIF 06/08 Pain control DVT prophylaxis continue PT Dementia Family requesting SNF placement however patient has been going back and forth regarding SNF vs home decision. Patient concerned due to bad experience with her in the past, and misses her cats at home Patient is capable of making her own decisions and has not been deemed incompet ent. Dr. Prajapati, Neuro consulted to eval 06/14 Family requesting formal neuro consult to eval patients mental capacity, dementia, decision making abilities. continue supportive care, home meds patient does have some dementia with some mild sundowning at times Acute blood loss anemia hgb downtrended to 6.4 post-op. s/p 1 uPRBC 06/10; repeat hgb improved to 8.7 Daily labs. hgb in 8s. Close monitoring Acute cystitis without hematuria urine cx (06/08): grew Pseudomonas Aeruginoisa partially resistant to ceftazidime/zosyn IV rocephin (06/09-06/11) switched to oral levaquin (06/11) continue levaquin (06/11-) afebrile, no leukocytosis Hypertension confirm home meds home propranolol added 06/14 PRN hydralazine Anxiety continue home lexapro continue supportive care VTE: Lovenox Code: Full Dispo: SNF cm/ss consulted for assistance. Time Spent Managing Pts Care (In Minutes): 55
[2024-06-14] MEDS: PROPRANOLOL HCL 10 MG TAB PO SCH (11:29)
[2024-06-14] MEDS: POTASSIUM CL SA 10 MEQ TAB PO ONE (22:24)
[2024-06-15 05:51] LABS: Anion Gap 7.9 mEq/L (5.0-15.0); Magnesium 1.8 mg/dL (1.6-2.4); Potassium 3.9 mEq/L (3.5-5.1)
[2024-06-15] MEDS: MAGNESIUM SULFATE 1 gm IVPB 1 GM/100 ML BAG IV ONE (06:32)
--- NOTE | 2024-06-15 10:57 | P.PN ---
Date of Service: 06/15/24 Subjective: slept well overnight no new / worsening problems now amenable to SNF; pending auth tearful at times - remembering her , and roseann is a big event for her family and sad she will not be home for it ROS: 10 point ROS as noted above, otherwise negative Physical Exam: GEN: Alert, NAD, teraful CV: Regular rate and rhythm, no edema Pulm: Nonlabored respirations on room air, clear bilaterally ABD: soft, nontender, nondistended MSK: R hip with some mild tenderness Neuro: Normal speech, normal affect Problem List: Right intertrochanteric hip fracture secondary to fall, s/p ORIF (06/08) Dementia Acute blood loss anemia Acute cystitis without hematuria Hypertension Anxiety Right intertrochanteric hip fracture secondary to fall, s/p ORIF (06/08) s/p ORIF 06/[address] Redding Pain control DVT prophylaxis continue PT touch down weight-bearing Dementia Family requesting SNF placement however patient has been going back and forth regarding SNF vs home decision. Patient concerned due to bad experience with her in the past, and misses her cats at home Family requesting formal neuro consult to [facility] patients mental capacity, dementia, decision making abilities. Dr. Prajapati, Neuro consulted to [facility] 06/14 for capacity nursing staff report some intermittent confusion / sundowning mildly happens later in evening so unable to fully assess, but does bring up concern for fluctuating capacity would be safer discharge to SNF continue supportive care, home meds 06/14 Patient agreeable to SNF after lengthy discussion. Family have chosen [facility] - pending approval Acute blood loss anemia hgb downtrended to 6.4 post-op. s/p 1 uPRBC 06/10; repeat hgb improved to 8.7 Daily labs. hgb in 8s. Close monitoring Acute cystitis without hematuria urine cx (06/08): grew Pseudomonas Aeruginoisa partially resistant to ceftazidime/zosyn IV rocephin (06/09-06/11) switched to oral levaquin (06/11) continue levaquin (06/11-) afebrile, no leukocytosis Hypertension confirm home meds home propranolol added 06/14 PRN hydralazine Anxiety continue home lexapro continue supportive care VTE: Lovenox Code: Full Dispo: SNF, [facility] - pending approval cm/ss consulted for assistance. Time Spent Managing Pts Care (In Minutes): 55
[2024-06-15] MEDS: ENSURE ENLIVE 237 ML CAN PO SCH (19:32)
[2024-06-15] MEDS: LORAZEPAM 0.5 MG TABLET PO PRN (22:05)
--- NOTE | 2024-06-16 10:01 | P.PN ---
Date of Service: 06/16/24 Subjective: got out of bed and sat in chair for a while yesterday no events overnight pending SNF auth feels ativan helped calm her anxiety last night 1 BM yesterday ROS: 10 point ROS as noted above, otherwise negative Physical Exam: GEN: Alert, NAD, CV: Regular rate and rhythm, no edema Pulm: Nonlabored respirations on room air, clear bilaterally ABD: soft, nontender, nondistended MSK: R hip with some mild tenderness Neuro: Normal speech, normal affect Problem List: Right intertrochanteric hip fracture secondary to fall, s/p ORIF (06/08) Dementia Acute blood loss anemia Acute cystitis without hematuria Hypertension Anxiety Right intertrochanteric hip fracture secondary to fall, s/p ORIF (06/08) s/p ORIF 06/[address] Redding Pain control DVT prophylaxis continue PT touch down weight-bearing Dementia Family requesting SNF placement however patient has been going back and forth regarding SNF vs home decision. Patient concerned due to bad experience with her in the past, and misses her cats at home Family requesting formal neuro consult to [facility] patients mental capacity, dementia, decision making abilities. Dr. Prajapati, Neuro consulted to [facility] 06/14 for capacity nursing staff report some intermittent confusion / sundowning mildly happens later in evening so unable to fully assess, but does bring up concern for fluctuating capacity would be safer discharge to SNF continue supportive care, home meds 06/14 Patient agreeable to SNF after lengthy discussion. Family have chosen [facility] - pending approval Acute blood loss anemia hgb downtrended to 6.4 post-op. s/p 1 uPRBC 06/10; repeat hgb improved to 8.7 Daily labs. hgb in 8s. Close monitoring Acute cystitis without hematuria urine cx (06/08): grew Pseudomonas Aeruginoisa partially resistant to ceftazidime/zosyn IV rocephin (06/09-06/11) switched to oral levaquin (06/11) continue levaquin (06/11-) afebrile, no leukocytosis Hypertension confirm home meds home propranolol added 06/14 PRN hydralazine Anxiety continue home lexapro continue supportive care ativan added 06/15 PRN VTE: Lovenox Code: Full Dispo: SNF, [place] - pending approval cm/ss consulted for assistance. Time Spent Managing Pts Care (In Minutes): 55
[2024-06-16] MEDS ORDERED: LORAZEPAM 0.5 MG TABLET PO SCH (21:33)
[2024-06-17 07:30] LABS: Hematocrit 24.5 % (36.0-45.0); Hemoglobin 7.8 g/dL (12.0-15.0); MCH 32.5 pg (27.0-35.0); MCHC 31.8 g/dL (32.0-36.0); MCV 102.4 fL (80-100); MPV 8.6 fL (7.6-11.3); Platelets 334 thou/uL (152-406); RBC Red Blood Cell Count 2.39 M/uL (3.86-4.86); Red Cell Distribution Width 16.6 % (12.1-15.2)
--- NOTE | 2024-06-17 11:10 | P.PN ---
Date of Service: 06/17/24 Subjective: feeling better overall no events overnight improving with PT; feels strength slowly returning - able to move hip better - more ROM able to work longer before getting fatigued ROS: 10 point ROS as noted above, otherwise negative Physical Exam: GEN: Alert, NAD, CV: Regular rate and rhythm, no edema Pulm: Nonlabored respirations on room air, clear bilaterally Neuro: Normal speech, normal affect Problem List: Right intertrochanteric hip fracture secondary to fall, s/p ORIF (06/08) Dementia Acute blood loss anemia Acute cystitis without hematuria Hypertension Anxiety Right intertrochanteric hip fracture secondary to fall, s/p ORIF (06/08) s/p ORIF 06/[address] Redding Pain control DVT prophylaxis continue PT touch down weight-bearing Dementia Family requesting SNF placement however patient has been going back and forth regarding SNF vs home decision. Patient concerned due to bad experience with her in the past, and misses her cats at home Family requesting formal neuro consult to al patients mental capacity, dementia, decision making abilities. Dr. Prajapati, Neuro consulted to [facility] 06/14 for capacity nursing staff report some intermittent confusion / sundowning mildly happens later in evening so unable to fully assess, but does bring up concern for fluctuating capacity would be safer discharge to SNF continue supportive care, home meds 06/14 Patient agreeable to SNF after lengthy discussion. Family have chosen [facility] - pending approval Acute blood loss anemia hgb downtrended to 6.4 post-op. s/p 1 uPRBC 06/10; repeat hgb improved to 8.7 Daily labs. hgb in 8s. Close monitoring Acute cystitis without hematuria urine cx (06/08): grew Pseudomonas Aeruginoisa partially resistant to ceftazidime/zosyn IV rocephin (06/09-06/11) switched to oral levaquin (06/11) continue levaquin (06/11-) another ~day afebrile, no leukocytosis Hypertension confirm home meds home propranolol added 06/14 PRN hydralazine Anxiety continue home lexapro continue supportive care ativan added 06/15 PRN VTE: Lovenox Code: Full Dispo: [facility], [facility] - pending approval cm/ss consulted for assistance. Time Spent Managing Pts Care (In Minutes): 40
[2024-06-17 18:58] LABS: Specific Gravity 1.007 (1.005-1.030); Sqamous Epithelial None Seen /HPF (None Seen); Urine Bacteria None Seen /HPF (<20); Urine Bilirubin NEGATIVE (Negative); Urine Blood 1+ (Negative); Urine Clarity Clear (Clear); Urine Color Colorless (Yellow); Urine Crystals Unidentified Few /HPF (None Seen); Urine Culture Reflex Order NOT NEEDED; Urine Glucose NEGATIVE (Negative); Urine Ketones NEGATIVE (Negative); Urine Microscopic Reflex YN ORDER UMIC; Urine Nitrite NEGATIVE (Negative); Urine Protein NEGATIVE (Negative); Urine RBC <5 /HPF (None Seen); Urine Urobilinogen Normal (Normal); Urine WBC <5 /HPF (<5); Urine Yeast (Budding) Trace /HPF (None Seen); Urine pH 6.5 (5.0-7.0)
[2024-06-18 05:06] LABS: Hemoglobin 11.6 g/dL (12.0-15.0); MCH 24.4 pg (27.0-35.0); MCHC 31.4 g/dL (32.0-36.0); MCV 77.5 fL (80-100); MPV 9.2 fL (7.6-11.3); Platelets 172 thou/uL (152-406); RBC Red Blood Cell Count 4.78 M/uL (3.86-4.86)
[2024-06-18 05:29] LABS: Anion Gap 9.9 mEq/L (5.0-15.0); Magnesium 2.1 mg/dL (1.6-2.4); Potassium 3.9 mEq/L (3.5-5.1)
[2024-06-18 05:35] VITALS: BMI 19.3
[2024-06-18] MEDS: POTASSIUM CL SA 10 MEQ TAB PO ONE (09:01)
--- NOTE | 2024-06-18 09:21 | P.PN ---
Date of Service: 06/18/24 Subjective: reports some dysuria yesterday; None today otherwise doing okay strength slowly improving; still feeling weak afebrile ROS: 10 point ROS as noted above, otherwise negative Physical Exam: GEN: Alert, NAD, CV: Regular rate and rhythm, no edema Pulm: Nonlabored respirations on room air, clear bilaterally Neuro: Normal speech, normal affect Problem List: Right intertrochanteric hip fracture secondary to fall, s/p ORIF (06/08) Dementia Acute blood loss anemia Acute cystitis without hematuria Hypertension Anxiety Right intertrochanteric hip fracture secondary to fall, s/p ORIF (06/08) s/p ORIF 06/[address] Redding Pain control DVT prophylaxis continue PT touch down weight-bearing Dementia Family requesting SNF placement however patient has been going back and forth regarding SNF vs home decision. Patient concerned due to bad experience with her in the past, and misses her cats at home Family requesting formal neuro consult to [facility] patients mental capacity, dementia, decision making abilities. Dr. Prajapati, Neuro consulted to [facility] 06/14 for capacity nursing staff report some intermittent confusion / sundowning mildly happens later in evening so unable to fully assess, but does bring up concern for fluctuating capacity would be safer discharge to SNF continue supportive care, home meds 06/14 Patient agreeable to SNF after lengthy discussion. Family have chosen [facility] - pending approval Acute blood loss anemia hgb downtrended to 6.4 post-op. s/p 1 uPRBC 06/10; repeat hgb improved to 8.7 Daily labs. Stable Acute cystitis without hematuria urine cx (06/08): grew Pseudomonas Aeruginoisa partially resistant to ceftazidime/zosyn IV rocephin (06/09-06/11) switched to oral levaquin (06/11) continue levaquin (06/11-) another ~day afebrile, no leukocytosis repeat UA 06/17 unremarkable Hypertension confirm home meds home propranolol added 06/14 PRN hydralazine Anxiety continue home lexapro continue supportive care ativan added 06/15 PRN VTE: Lovenox Code: Full Dispo: [facility], [facility] - pending approval CM/SS consulted for assistance. Time Spent Managing Pts Care (In Minutes): 40
[2024-06-18 11:56] VITALS: O2SAT 95
[2024-06-19 06:28] LABS: Hematocrit 25.3 % (36.0-45.0); Hemoglobin 8.5 g/dL (12.0-15.0); MCH 34.3 pg (27.0-35.0); MCHC 33.7 g/dL (32.0-36.0); MCV 101.6 fL (80-100); MPV 7.9 fL (7.6-11.3); Platelets 398 thou/uL (152-406); RBC Red Blood Cell Count 2.49 M/uL (3.86-4.86); Red Cell Distribution Width 16.5 % (12.1-15.2)
--- NOTE | 2024-06-19 16:30 | P.PN ---
Subjective Date of Service: 06/19/24 Chief Complaint: hip fracture She has no new complain. She is tolerating her diet. No issues overnight. No agitation. Physical Examination - Vital Signs Temperature: 98.4 F Blood Pressure: 124/56 Pulse: 73 Respirations: 12 Pulse Ox (%): 99 Assessment And Plan - Plan Physical examination General: Alert and oriented x 2, NAD, Heart: Heart sounds 1 and 2 normal, regular rhythm, normal rate, no pedal edema Lungs: Clear to auscultation bilaterally, adequate breath sounds bilaterally, no rhonchi or crackles. Abdomen: Soft, nondistended, nontender, normal bowel sounds. Extremities: No tenderness, clean right hip wound dressing Skin: Normal skin turgor, no rash. Neuro: No focal motor deficit. Normal speech. Psychiatry: Normal mood, no agitation. Assessment and plan Diagnosis Right intertrochanteric hip fracture secondary to fall, s/p ORIF (06/08) Dementia Acute blood loss anemia Acute cystitis without hematuria Hypertension Anxiety Right intertrochanteric hip fracture secondary to fall, s/p ORIF (06/08) s/p ORIF 06/[address] Redding Pain control DVT prophylaxis continue PT touch down weight-bearing Dementia Family requested SNF placement however patient has been going back and forth regarding SNF vs home decision. Patient concerned due to bad experience with her in the past, and misses her cats at home nursing staff report some intermittent confusion / sundowning mildly Patient lives alone and disposition to SNF considered safer given her sundowning and her poor functional status. continue supportive care, home meds Patient accepted to [facility]. Clinically stable for discharge in a.m. Acute blood loss anemia hgb downtrended to 6.4 post-op. s/p 1 uPRBC 06/10. Hemoglobin has been stable. Acute cystitis without hematuria urine cx (06/08): grew Pseudomonas Aeruginoisa partially resistant to ceftazidime/zosyn IV rocephin (06/09-06/11) switched to oral levaquin (06/11) Patient completed oral Levaquin for UTI afebrile, no leukocytosis repeat UA 06/17 unremarkable Hypertension confirm home meds home propranolol added 06/14 PRN hydralazine Anxiety continue home lexapro continue supportive care VTE: Lovenox Code: Full Dispo: SNF, [facility].
[2024-06-19] MEDS: LORAZEPAM 0.5 MG TABLET PO ONE (21:06)
[2024-06-20 12:14] VITALS: BP 103/48; TEMP 97.1
--- NOTE | 2024-06-20 12:54 | P.DS ---
Admission Date: 06/08/24 Discharge Date: 06/20/24 Disposition: TRANSFER TO SNF - REHAB Discharge Condition: FAIR Reason for Admission: hip fracture Brief History of Present Illness: Patient with a history of dementia, anxiety and hypertension presented with right hip pain after sustaining a fall secondary to right intertrochanteric hip fracture. Hospital Course: Right intertrochanteric hip fracture secondary to fall. Patient was evaluated by orthopedic Dr. Ellis, surgery performed with placement of intramedullary roberta. Patient tolerated physical therapy after surgery but has only been able to sit at edge of the bed. DVT prophylaxis done with subcutaneous Lovenox and transition to Eliquis on discharge. touch down weight-bearing Acute blood loss anemia Patient hemoglobin dropped to 6.4 after surgery She was given 1 units of PRBC transfusion Hemoglobin has been stable since transfusion. Acute cystitis without hematuria Patient urine culture grew Pseudomonas Aeruginoisa partially resistant to ceftazidime/zosyn She was initially on IV Rocephin IV and later switched to oral levaquin based on Pseudomonas antibiotic sensitivity. Patient completed oral Levaquin for the UTI Repeat UA on 06/17 unremarkable Hypertension Continued home dose propranolol. Anxiety continued home dose lexapro Medications: Eliquis 2.5 mg twice a day for 23 days [place] as needed for pain Vital Signs/Physical Exam: Temp Pulse Resp BP Pulse Ox 97.1 F 64 16 103/48 L 98 06/20/24 12:00 06/20/24 12:00 06/20/24 12:00 06/20/24 12:00 06/20/24 12:00 General: Alert, In no apparent distress, Oriented x2 HEENT: Mucous membr. moist/pink Neck: Supple, JVD not distended Respiratory: Clear to auscultation bilaterally, Normal air movement Cardiovascular: No edema, Regular rate/rhythm, Normal S1 S2 Gastrointestinal: Soft and benign, Non-distended Integumentary: No rashes Neurological: Normal speech, Normal strength at 5/5 x4 extr Laboratory Data at Discharge: WBC 6.70 thou/uL (4.3-10.9) 06/19/24 06:10 Hgb 8.5 g/dL (12.0-15.0) L D 06/19/24 06:10 Hct 25.3 % (36.0-45.0) L 06/19/24 06:10 Plt Count 398 thou/uL (152-406) D 06/19/24 06:10 PT 11.6 SECONDS (9.4-12.5) 06/07/24 21:02 INR 1.04 06/07/24 21:02 Sodium 135 mEq/L (136-145) L 06/19/24 06:10 Potassium 4.0 mEq/L (3.5-5.1) 06/19/24 06:10 BUN 17 mg/dL (7-18) 06/19/24 06:10 Creatinine 0.87 mg/dL (0.55-1.02) 06/19/24 06:10 Glucose 100 mg/dL (74-106) 06/19/24 06:10 Phosphorus Cancelled 06/08/24 13:00 Magnesium 2.1 mg/dL (1.6-2.4) 06/18/24 04:47 Total Bilirubin 1.0 mg/dL (0.2-1.0) 06/07/24 21:02 AST 26 U/L (15-37) 06/07/24 21:02 ALT 15 U/L (13-56) 06/07/24 21:02 Alkaline Phosphatase 61 U/L (45-117) 06/07/24 21:02 Home Medications: Apixaban [Eliquis] 2.5 mg PO BID #46 tablet 06/20/24 Ensure Enlive 237 ml PO BID can 06/20/24 Escitalopram [Lexapro*] 20 mg PO DAILY tab 06/20/24 Hydrocodone 5/APAP 325 [[place] 5/325*] 1 tab PO Q6H PRN #12 tab 06/20/24 Propranolol [Inderal*] 20 mg PO BID tab 06/20/24 New Medications: Apixaban [Eliquis] 2.5 mg PO BID #46 tablet Hydrocodone 5/APAP 325 [[place] 5/325*] 1 tab PO Q6H PRN #12 tab PRN Reason: Pain Scale 5-7 (Moderate) Physician Discharge Instructions: Physician discharge instructions: Patient with a history of dementia, anxiety and hypertension presented with right hip pain after sustaining a fall secondary to right intertrochanteric hip fracture. Right intertrochanteric hip fracture secondary to fall. Patient was evaluated by orthopedic Dr. Ellis, surgery performed with placement of intramedullary roberta. Patient tolerated physical therapy after surgery but has only been able to sit at edge of the bed. DVT prophylaxis done with subcutaneous Lovenox and transition to Eliquis on discharge. touch down weight-bearing Acute blood loss anemia Patient hemoglobin dropped to 6.4 after surgery She was given 1 units of PRBC transfusion Hemoglobin has been stable since transfusion. Acute cystitis without hematuria Patient urine culture grew Pseudomonas Aeruginoisa partially resistant to ceftazidime/zosyn She was initially on IV Rocephin IV and later switched to oral levaquin based on Pseudomonas antibiotic sensitivity. Patient completed oral Levaquin for the UTI Repeat UA on 06/17 unremarkable Hypertension Continued home dose propranolol. Anxiety continued home dose lexapro Medications: Eliquis 2.5 mg twice a day for 23 days [place] as needed for pain Follow up: PCP 1 week. Ortho 1 week Please call to schedule / confirm appointments Diet: AHA Activity: Fall precautions Followup: Edward Ellis MD [ACTIVE - CAN ADMIT] - 1 Week Isidro Villafuerte MD [Primary Care Provider] - 1-2 Weeks Time spent managing pt's care (in minutes): 38
== END 2024-06-20 16:25 | DRG 481 ==
LOC: ER 20:01 → 2ND 06-08 00:10
PROVIDERS: ADMIT Internal Medicine; ATTEND Internal Medicine
PROC: 0QH606Z Insertion of Intramedullary Internal Fixation Device into Right Upper Femur, Open Approach (ICD-10-PCS; 2024-06-09)
PROC: 30233P1 Transfusion of Nonautologous Frozen Red Cells into Peripheral Vein, Percutaneous Approach (ICD-10-PCS; principal; 2024-06-19)
DX: S72.091A Other fracture of head and neck of right femur, initial encounter for closed fracture (principal); D62 Acute posthemorrhagic anemia; N30.00 Acute cystitis without hematuria; W19.XXXA Unspecified fall, initial encounter; F41.9 Anxiety disorder, unspecified; I10 Essential (primary) hypertension; F03.90 Unspecified dementia, unspecified severity, without behavioral disturbance, psychotic disturbance, mood disturbance, and anxiety; B96.5 Pseudomonas (aeruginosa) (mallei) (pseudomallei) as the cause of diseases classified elsewhere
CPT/HCPCS: 36415; 36430; 70450; 71045; 71250; 72125; 72170; 74176; 80048; 80076; 81001; 82550; 83735; 83880; 84484; 85014; 85018; 85025; 85027; 85610; 86850; 86880; 86900; 86901; 86920; 86922; 87077; 87086; 87088; 87186; 93005; 96374; 96375; 97110; 97161; 97530; 99285; J0171; J0690; J0696; J1100; J1650; J2003; J2270; J2405; J2704; J3010; J3475; J7030; J7040; J7050; P9016

== ENCOUNTER 2024-10-17 15:45 | Emergency (ER) | payer OTHER ==
--- OUTSIDE RECORDS SUMMARY | 2024-10-17 15:47 | XMS REPORT | Continuity of Care Document ---
Author Name Unknown Address [address] [place] [address] [address] [place] [address] [facility] Address [address] [facility] [address] [place] [address] Care Team Providers Care Archivist Economic History Name Role Phone СЕРГЕЙ HERNANDEZ Attending Clinician Unavailable [facility] Admitting Clinician Unav ailable Encounters Start Date/Time End Date/Time Encounter Type Admission Type Attending Clinicians Care Facility Care Department Encounter ID Source 2024-01-07 17:55:00 2024-01-09 17:35:00 Outpatient E СЕРГЕЙ HERNANDEZ [facility] MED [id number] [facility]
[2024-10-17 16:48] LABS: Absolute Basophils 0.2 K/uL (0-0.5); Absolute Eosinophils 0.5 K/uL (0-0.5); Absolute Monocytes 0.9 K/uL (0.1-1.3); Absolute Neutrophil 8.4 K/uL (1.8-8.0); Basophils % 1.4 % (0-1.3); Eosinophils % 4.3 % (0-4.4); Hematocrit 29.4 % (36.0-45.0); Hemoglobin 10.3 g/dL (12.0-15.0); MCH 37.7 pg (27.0-35.0); MCHC 34.9 g/dL (32.0-36.0); MCV 107.9 fL (80-100); MPV 8.2 fL (7.6-11.3); Monocytes % 7.8 % (3.3-12.3); Neutrophils % 69.5 % (41.7-73.7); Platelets 281 thou/uL (152-406); RBC Red Blood Cell Count 2.73 M/uL (3.86-4.86); Red Cell Distribution Width 16.1 % (12.1-15.2)
[2024-10-17 16:55] LABS: PT Prothrombin Time 11.6 SECONDS (10-13.0); PTT, Activated Partial Thromb 28.3 SECONDS (27.2-37.4); Protime INR 1.02
[2024-10-17 17:04] LABS: Albumin 3.5 g/dL (3.4-5.0); Albumin/Globulin Ratio 0.8 (1.1-1.8); Anion Gap 7.8 mEq/L (5.0-15.0); Bilirubin Total 0.6 mg/dL (0.2-1.0); Globulin 4.4 g/dL (2.3-3.5); Potassium 3.8 mEq/L (3.5-5.1); Protein, Total 7.9 g/dL (6.4-8.2)
[2024-10-17] MEDS ORDERED: SMZ./TMP. 800/160 MG TABLET ONE (17:52)
[2024-10-17] MEDS ORDERED: CEFAZOLIN SODIUM 1 GM/VIAL ONE (17:53)
[2024-10-17] MEDS ORDERED: NA CHLORIDE 0.9% 100 ML ONE (17:53)
--- NOTE | 2024-10-17 17:54 | EDPHYS ---
Physician Documentation [facility] Name: Jaida Chance Age: 89 yrs Sex: Female : 1935 Arrival Date: 10/17/2024 Time: 15:45 Bed 4 Private MD: ED Physician Anthony Moralez HPI: 10/17 16:41 This 89 yrs old Female presents to ER via Ambulatory with complaints of Hand Swelling. kb 16:41 Pt is an 89 year old female who presents for redness and swelling to left hand that kb started this morning. States she was scratched by a cat last night and developed the redness and swelling since then. Denies known fever. . Historical: - Allergies: 16:03 Codeine (Upset stomach); iw 16:03 Milk/dairy products; iw - PMHx: 16:03 Anxiety; Extremely Hard of Hearing; Hypertension; iw - Immunization history:: Adult Immunizations unknown. - Infectious Disease History:: Denies. - Social history:: Smoking status: Patient denies any tobacco usage or history of. ROS: 16:41 Constitutional: As per HPI kb Exam: 16:41 Constitutional: This is a well developed, well nourished patient who is awake, alert, kb and in no acute distress. Head/Face: Normocephalic, atraumatic. ENT: Moist Mucous membranes Cardiovascular: Regular rate Respiratory: Respirations even and unlabored. No increased work of breathing. Talking in full sentences MS/ Extremity: Pulses equal, no cyanosis. Neurovascular intact. Full, normal range of motion. Neuro: Awake and alert, GCS 15, oriented to person, place, time, and situation. 16:41 Skin: cellulitis, that is moderate, on the left hand, Vital Signs: 16:08 BP 183 / 75; Pulse 70; Resp 16; Temp 98.4; Pulse Ox 98% ; Weight 45.36 kg; Height 5 ft. iw 0 in. ; Pain 0/10; 18:13 BP 168 / 78; Pulse 68; Resp 18; Temp 98; Pulse Ox 99% on R/A; ph 16:08 Body Mass Index 19.53 (45.36 kg, 152.4 cm) iw 16:08 Pain Scale: Adult iw MDM: 15:52 Medical Screening Exam initiated kb 16:41 Differential diagnosis: abrasion, abscess, cellulitis. Data reviewed: vital signs, kb nurses notes. Historians other than the Patient: Family Member: family. 17:52 Consideration of Admission/Observation Escalation of care including kb admission/observation considered. Admission considered for cellulitis but patient is afebrile, lactate within normal limits Dr. Kinsey who also recommends outpatient treatment. Patient educated on strict return precautions. Counseling: I had a detailed discussion with the patient and/or guardian regarding the historical points, exam findings, and any diagnostic results supporting the discharge/admit diagnosis, lab results, the need for outpatient follow up, a family practitioner, to return to the emergency department if symptoms worsen or persist or if there are any questions or concerns that arise at home. 10/17 16:04 Order name: Blood Culture Adult (2) 10/17 16:04 Order name: CBC with Diff 10/17 16:04 Order name: CMP; Complete Time: 17:05 10/17 16:04 Order name: Lactate w/ 2H reflex if indic.; Complete Time: 17: 10/17 16:04 Order name: Protime (+inr); Complete Time: 17:02 10/17 16:04 Order name: Ptt, Activated; Complete Time: 17:02 10/17 16:04 Order name: Labs collected and sent; Complete Time: 17:05 10/17 16:04 Order name: Vital Signs; Complete Time: 17:05 10/17 16:04 Order name: IV Start; Complete Time: 17:05 kb Administered Medications: 18:12 Drug: Trimethoprim-Sulfamethoxazole PO (160 mg-800 mg (DS) 1 tablet PO once Route: PO; ph 18:50 Follow up: Response: No adverse reaction ph 18:13 Drug: ceFAZolin IVPB 1 grams IVPB once Route: IVPB; Site: right antecubital; ph 18:51 Follow up: Response: No adverse reaction; IV Status: Completed infusion ph Disposition Summary: 10/17/24 17:54 Discharge Ordered Notes: Location: Home Condition: Stable kb Diagnosis - Cellulitis of left upper limb - hand kb Followup: kb - With: Emergency Department - When: As needed - Reason: Worsening of condition Followup: kb - With: Private Physician - When: 2 - 3 days - Reason: Recheck today's complaints, Continuance of care, Re-evaluation by your physician Discharge Instructions: - Discharge Summary Sheet kb - Cellulitis, Adult, [id number]-[id number] kb Forms: - Medication Reconciliation Form kb - Antibiotic Education kb - Prescription Opioid Use kb - Patient Portal Instructions kb - Leadership Thank You Letter kb Prescriptions: - Augmentin 875-125 mg Oral Tablet - take 1 tablet ORAL route every 12 hours for 10 days; 20 tablet; Refills: 0, kb Product Selection Permitted - Bactrim DS 800-160 mg Oral Tablet - take 1 tablet ORAL route every 12 hours for 10 days; 20 tablet; Refills: 0, kb Product Selection Permitted Signatures: Dispatcher [employer] EDMS Sita Velázquez, CEMENT MASON-C CEMENT MASON-Mary Tabor, RN RN iw Shereen Daily RN RN ph Corrections: (The following items were deleted from the chart) 16:04 16:04 BLOOD CULTURE*+BA.LAB.BRZ ordered. EDMS EDMS 16:04 16:04 CBC+H.LAB.BRZ ordered. EDMS EDMS 16:04 16:04 COMPREHENSIVE METABOLIC PANEL+C.LAB.BRZ ordered. EDMS EDMS 16:04 16:04 LACTATE+C.LAB.BRZ ordered. EDMS EDMS 16:04 16:04 PROTIME (+INR)+COAG.LAB.BRZ ordered. EDMS EDMS 16:04 16:04 PTT, ACTIVATED+COAG.LAB.BRZ ordered. EDMS EDMS
--- NOTE | 2024-10-17 17:54 | ER ---
Nurse's Notes [facility] Name: Jaida Chance Age: 89 yrs Sex: Female : 1935 Arrival Date: 10/17/2024 Time: 15:45 Bed 4 Private MD: Diagnosis: Cellulitis of left upper limb-hand Presentation: 10/17 16:01 Chief complaint: Patient states: her cat scratched her left hand yesterday and now it iw is red and swollen. Coronavirus screen: At this time, the client does not indicate any symptoms associated with coronavirus-19. Ebola Screen: No symptoms or risks identified at this time. Initial Sepsis Screen: Does the patient meet any 2 criteria? No. Patient's initial sepsis screen is negative. Does the patient have a suspected source of infection? No. Patient's initial sepsis screen is negative. Risk Assessment: Do you want to hurt yourself or someone else? Patient reports no desire to harm self or others. 16:01 Method Of Arrival: Ambulatory iw 16:02 Onset of symptoms was October 16, 2024. iw 16:02 Acuity: EILEEN 3 iw Historical: - Allergies: 16:03 Codeine (Upset stomach); iw 16:03 Milk/dairy products; iw - PMHx: 16:03 Anxiety; Extremely Hard of Hearing; Hypertension; iw - Immunization history:: Adult Immunizations unknown. - Infectious Disease History:: Denies. - Social history:: Smoking status: Patient denies any tobacco usage or history of. Screenin:07 [facility] ED Fall Risk Assessment (Adult) History of falling in the last 3 months, ph including since admission No falls in past 3 months (0 pts) Confusion or Disorientation No (0 pts) Intoxicated or Sedated No (0 pts) Impaired Gait No (0 pts) Mobility Assist Device Used No (0 pt) Altered Elimination No (0 pt) Score/Fall Risk Level 0 - 2 = Low Risk Oriented to surroundings, Maintained a safe environment, Hourly rounding (assess needs \T\ fall precautionary measures) done. Abuse screen: Denies threats or abuse. Denies injuries from another. Nutritional screening: No deficits noted. Tuberculosis screening: No symptoms or risk factors identified. Assessment: 17:06 General: Appears in no apparent distress. comfortable, Behavior is calm, cooperative, ph appropriate for age. Pain: Complains of pain in left hand. Neuro: Level of Consciousness is awake, alert, obeys commands, Oriented to person, place, time, situation. Cardiovascular: Capillary refill < 3 seconds in bilateral fingers Patient's skin is warm and dry. Respiratory: Airway is patent Respiratory effort is even, unlabored. Derm: Skin is pink, warm \T\ dry. Musculoskeletal: Swelling present in left hand W/ REDNESS NOTED. 18:13 Reassessment: d/c pending completion of IV antibiotics. ph Vital Signs: 16:08 BP 183 / 75; Pulse 70; Resp 16; Temp 98.4; Pulse Ox 98% ; Weight 45.36 kg; Height 5 ft. iw 0 in. ; Pain 0/10; 18:13 BP 168 / 78; Pulse 68; Resp 18; Temp 98; Pulse Ox 99% on R/A; ph 16:08 Body Mass Index 19.53 (45.36 kg, 152.4 cm) iw 16:08 Pain Scale: Adult iw ED Course: 15:50 Patient arrived in ED. gl 15:51 Sita Velázquez FNP-C is PHCP. kb 15:51 Anthony Moralez MD is Attending Physician. kb 16:03 Triage completed. iw 16:12 Shereen Daily, RN is Primary Nurse. ph 17:06 Arm band placed on Patient placed in an exam room, on a stretcher. ph 17:06 Initial lab(s) drawn, by me, sent to lab. Inserted saline lock: 22 gauge in right ph antecubital area, using aseptic technique. Blood collected. Flushed with 10 mL NS. 17:08 Patient has correct armband on for positive identification. Bed in low position. Call ph light in reach. Side rails up X 1. Pulse ox on. NIBP on. 18:13 No provider procedures requiring assistance completed. ph 18:51 IV discontinued, intact, bleeding controlled, No redness/swelling at site. Pressure ph dressing applied. Administered Medications: 18:12 Drug: Trimethoprim-Sulfamethoxazole PO (160 mg-800 mg (DS) 1 tablet PO once Route: PO; ph 18:50 Follow up: Response: No adverse reaction ph 18:13 Drug: ceFAZolin IVPB 1 grams IVPB once Route: IVPB; Site: right antecubital; ph 18:51 Follow up: Response: No adverse reaction; IV Status: Completed infusion ph Medication: 17:08 VIS not applicable for this client. ph Outcome: 17:54 Discharge ordered by . juan 18:51 Discharged to home via wheelchair, with friend, ph 18:51 Condition: good 18:51 Discharge instructions given to patient, friend, Instructed on discharge instructions, follow up and referral plans. medication usage, Demonstrated understanding of instructions, follow-up care, medications, Prescriptions given X 2, 18:52 Patient left the ED. ph Signatures: Sita Velázquez, TEST RACK OPERATOR-C TEST RACK OPERATOR-Ckb Mary Childress, RN RN Shereen Daily RN RN Gely Nails, Reg Reg gl
[2024-10-17 19:56] VITALS: BP 168/78; TEMP 98; O2SAT 99
[2024-10-17 20:22] LABS: Blood Morphology Comment NOTED (NOT SEEN); Macrocytosis 1+; Platelet Estimate ADEQ; Polychromasia SLIGHT; White Blood Cell Scan OK (OK)
== END 2024-10-17 18:52 | disposition home or self-care (01) ==
LOC: ER 15:45
DX: L03.114 Cellulitis of left upper limb (principal)
CPT/HCPCS: 96365; 87040 ×2; 85025; 36415; 85610; 83605; 85730; 80053; 99284; J0690